=== PATIENT | female | born 1980 | race Caucasian/White ===

== ENCOUNTER → 2018-06-02 10:46 | Outpatient (CLI) | payer BC, SELFPAY ==
[2018-06-05 03:05] LABS: Clam <0.10 kU/L (Class 0); Codfish <0.10 kU/L (Class 0); Corn <0.10 kU/L (Class 0); Egg, White <0.10 kU/L (Class 0); Milk (Cow) <0.10 kU/L (Class 0); Peanut <0.10 kU/L (Class 0); SCALLOP <0.10 kU/L (Class 0); Shrimp <0.10 kU/L (Class 0); Soybean <0.10 kU/L (Class 0); Walnut, (Food) <0.10 kU/L (Class 0); Wheat <0.10 kU/L (Class 0)
[2018-06-05 16:39] LABS: SESAME SEED <0.10 kU/L (Class 0)
== END ==
PROVIDERS: Family Provider Internal Medicine; PCP Internal Medicine; Visit Provider Otolaryngology
DX: T78.40XA Allergy, unspecified, initial encounter (principal)
CPT/HCPCS: 36415; 86003

== ENCOUNTER → 2018-07-14 09:21 | Outpatient (CLI) | payer BC, SELFPAY ==
[2018-07-17 11:17] LABS: Crab <0.10 kU/L (Class 0)
== END ==
PROVIDERS: Family Provider Internal Medicine; PCP Internal Medicine; Visit Provider Otolaryngology
DX: T78.40XA Allergy, unspecified, initial encounter (principal)
CPT/HCPCS: 36415; 86003

== ENCOUNTER → 2018-11-24 13:09 | Outpatient (CLI) | payer BC, SELFPAY ==
[2018-03-11 09:58] VITALS: BMI 21.6
--- NOTE | 2018-11-24 13:13 | US_ITS ---
STUDY: ULTRASOUND BREAST - LEFT REASON FOR EXAM: Female, 38 years old. TECHNIQUE: Axial and longitudinal images of the LEFT breast were performed with a high resolution ultrasound transducer. COMPARISON: None. FINDINGS: Ultrasound of the right axilla, no evidence of abnormality detected benign-appearing lymph nodes with fatty hilum seen. US/Breast Limited Unilateral IMPRESSION: Negative study Electronically Signed: You Brown, at 16:24 EST Tel , Service support ,
--- NOTE | 2018-11-24 13:13 | BI_ITS ---
MAMMOGRAPHY - BILATERAL DIAGNOSTIC REASON FOR EXAM: Female, 38 years old. PERTINENT HISTORY: Non-contributory. TECHNIQUE: Digital examination. Mediolateral oblique (MLO) and craniocaudad (CC) views of both breasts were obtained. CAD: COMPARISON: None. FINDINGS: Breast Composition: Heterogeneous fibroglandular tissue may obscure small lesions. however no evidence of any distinct masses, skin thickening or nipple retraction. Small lymph nodes noted in both axillary areas, but because of increased density in the left axilla patient was called back for second look by ultrasound. BI/DIAG MAMM W/CAD, BILAT IMPRESSION: No evidence of malignancy please refer to the ultrasound examination when it is done. BIRADS 1 Approximately 10% of breast cancers are not detected by mammography. A normal mammogram should not delay biopsy of a clinically suspicious abnormality. Electronically Signed: You Brown, at 16:28 EST Tel , Service support ,
== END ==
PROVIDERS: Family Provider Internal Medicine; PCP Internal Medicine; Referring Provider Internal Medicine; Visit Provider Internal Medicine
DX: R59.1 Generalized enlarged lymph nodes (principal); N63.0 Unspecified lump in unspecified breast
CPT/HCPCS: 76642; 77062; 77066; G0279

== ENCOUNTER → 2018-11-28 14:09 | Outpatient (CLI) | payer BC, SELFPAY ==
--- NOTE | 2018-11-28 14:12 | US_ITS ---
STUDY: ULTRASOUND BREAST - LEFT REASON FOR EXAM: Female, 38 years old. Palpable abnormality in the left axillary region. TECHNIQUE: Axial and longitudinal images of the LEFT breast were performed with a high resolution ultrasound transducer. COMPARISON: Comparison is made with prior ultrasound dated November 24, 2018. FINDINGS: LEFT Breast: There are 2 benign-appearing lymph nodes in the axillary region. The larger measures 1.7 cm 1.4 cm x 0.7 cm. US/Breast Limited Unilateral IMPRESSION: 2 benign appearing left axillary lymph nodes. ASSESSMENT CATEGORY: BIRADS Category 2: Benign. A letter regarding these results will be sent to the patient by the facility within 30 days. Electronically Signed: Radu Cramer MD at 9:25 EST Tel [phone], Service support ,
== END ==
PROVIDERS: Family Provider Internal Medicine; PCP Internal Medicine; Referring Provider Internal Medicine; Visit Provider Internal Medicine
DX: R93.89 Abnormal findings on diagnostic imaging of other specified body structures (principal)
CPT/HCPCS: 76642

== ENCOUNTER → 2020-01-18 16:35 | Outpatient (CLI) | payer BC, SELFPAY ==
[2020-01-18 13:01] VITALS: BMI 21.6
[2020-01-21 15:45] LABS: HPV APTIMA, High Risk Negative (Negative)
== END ==
PROVIDERS: PCP Internal Medicine; Referring Provider Nurse Practitioner Women's Health; Visit Provider Nurse Practitioner Women's Health
DX: Z12.4 Encounter for screening for malignant neoplasm of cervix (principal)
CPT/HCPCS: 87624; 88175; G0145

== ENCOUNTER → 2020-01-26 11:46 | Outpatient (CLI) | payer BC, SELFPAY ==
[2020-01-18 13:01] VITALS: BMI 21.6
--- NOTE | 2020-01-26 11:46 | BI_ITS ---
MAMMOGRAPHY - BILATERAL SCREENING REASON FOR EXAM: Female, 39 years old. Routine annual screening examination. PERTINENT HISTORY: Maternal aunt had breast cancer TECHNIQUE: Digital bilateral breast kandy (3D mammographic acquisition) in the CC and MLO projections. 2-D mediolateral oblique (MLO) and craniocaudad (CC) views of both breasts were obtained. CAD: Full Field Digital Mammography with Computer Added Detection was performed. COMPARISON: Previously obtained on 11/24/2018 FINDINGS: Breast Composition: Dense central breast structures identified. There are no dominant masses or suspicious calcifications. No other significant abnormalities are identified. BI/SCREEN MAMM (CAD) W/KANDY BILAT IMPRESSION: Stable bilateral screening mammogram. Yearly follow-up mammogram recommended. (A) ASSESSMENT CATEGORY: BIRADS Category 1: Negative. A letter regarding these results will be sent to the patient by the facility within 30 days. Approximately 10% of breast cancers are not detected by mammography. A normal mammogram should not delay biopsy of a clinically suspicious abnormality. [id number] Electronically Signed: Juan Francisco Nestor, at 17:39 EST Tel , Service support ,
== END ==
PROVIDERS: PCP Internal Medicine; Referring Provider Nurse Practitioner Women's Health; Visit Provider Nurse Practitioner Women's Health
DX: Z12.31 Encounter for screening mammogram for malignant neoplasm of breast (principal)
CPT/HCPCS: 77063; 77067

== ENCOUNTER → 2021-02-08 12:00 | Outpatient (CLI) | payer BC, SELFPAY ==
[2021-01-24 09:55] VITALS: BMI 21.7
--- NOTE | 2021-02-08 12:11 | BI_ITS ---
MAMMOGRAPHY - BILATERAL SCREENING REASON FOR EXAM: Female, 40 years old. Routine annual screening examination. PERTINENT HISTORY: Aunt with breast cancer. History of prior bilateral breast reduction surgery. TECHNIQUE: Digital bilateral breast kandy (3D mammographic acquisition) in the CC and MLO projections. 2-D mediolateral oblique (MLO) and craniocaudad (CC) views of both breasts were obtained. CAD: Full Field Digital Mammography with Computer Added Detection was performed. COMPARISON: Comparison is made with prior study dated 01/26/2020 and 11/24/2018. FINDINGS: Breast Composition: The breasts are extremely dense, which lowers the sensitivity of mammography. There are no dominant masses or suspicious calcifications. Stable benign-appearing bilateral axillary lymph nodes. No other significant abnormalities are identified. There has been no significant change since the prior study. BI/SCRN MAMM (CAD)W/KANDY BILAT IMPRESSION: Stable bilateral screening mammogram. Yearly follow-up mammogram recommended. (A) ASSESSMENT CATEGORY: BIRADS Category 2: Benign. A letter regarding these results will be sent to the patient by the facility within 30 days. Approximately 10% of breast cancers are not detected by mammography. A normal mammogram should not delay biopsy of a clinically suspicious abnormality. [id number] Electronically Signed: Radu Cramer MD at 11:17 EDT , Service support ,
--- NOTE | 2021-02-08 12:11 | US_ITS ---
STUDY: ULTRASOUND OF THE FEMALE PELVIS - COMPLETE REASON FOR EXAM: Female, 40 years old. Menorrhagia LMP: 02/01/2021 TECHNIQUE: Transvaginal TECHNICAL QUALITY: Adequate. COMPARISON: None. FINDINGS: The uterus is anteverted and is in a midline position. The uterus measures 9.2 cm. Normal uterine cervix. The endometrium measures 3.8 mm in thickness, and is hyperechoic. There is no demonstrated endometrial mass. There is no demonstrated myometrial mass. I.U.D. - The patient does not have an I.U.D. The right ovary is visualized. The right ovary measures 2.7 x 2.9 x 2.1 cm. There is no right ovarian cyst or ovarian mass. There is no visualized right adnexal mass or complex lesion. There is normal arterial and normal venous vascularity. The left ovary is visualized. The left ovary measures 3.7 x 2.9 x 2.7 cm. There is no left ovarian cyst or ovarian mass. There is no visualized left adnexal mass or complex lesion. There is normal arterial and normal venous vascularity. There is no fluid in the cul-de-sac. The bladder is sonographically normal US/Transvaginal Non- IMPRESSION: No suspicious sonographic findings Electronically Signed: Maldonado Yanez MD at 13:13 EST , Service support ,
--- NOTE | 2021-02-08 12:11 | US_ITS ---
STUDY: ULTRASOUND OF THE FEMALE PELVIS - COMPLETE REASON FOR EXAM: Female, 40 years old. Menorrhagia LMP: 02/01/2021 TECHNIQUE: Transvaginal TECHNICAL QUALITY: Adequate. COMPARISON: None. FINDINGS: The uterus is anteverted and is in a midline position. The uterus measures 9.2 cm. Normal uterine cervix. The endometrium measures 3.8 mm in thickness, and is hyperechoic. There is no demonstrated endometrial mass. There is no demonstrated myometrial mass. I.U.D. - The patient does not have an I.U.D. The right ovary is visualized. The right ovary measures 2.7 x 2.9 x 2.1 cm. There is no right ovarian cyst or ovarian mass. There is no visualized right adnexal mass or complex lesion. There is normal arterial and normal venous vascularity. The left ovary is visualized. The left ovary measures 3.7 x 2.9 x 2.7 cm. There is no left ovarian cyst or ovarian mass. There is no visualized left adnexal mass or complex lesion. There is normal arterial and normal venous vascularity. There is no fluid in the cul-de-sac. The bladder is sonographically normal US/Pelvic (Non ) IMPRESSION: No suspicious sonographic findings Electronically Signed: Maldonado Yanez MD at 13:13 EST , Service support ,
== END ==
PROVIDERS: PCP Internal Medicine; Referring Provider Nurse Practitioner Women's Health; Visit Provider Nurse Practitioner Women's Health
DX: Z12.31 Encounter for screening mammogram for malignant neoplasm of breast (principal); N92.0 Excessive and frequent menstruation with regular cycle
CPT/HCPCS: 76830; 76856; 77063; 77067

== ENCOUNTER 2021-03-23 13:59 | Outpatient (RCR) | payer BC, SELFPAY ==
[2021-01-24 09:55] VITALS: BMI 21.7
== END 2021-05-09 23:59 ==
LOC: IMMUN 13:59
PROVIDERS: PCP Internal Medicine; Referring Provider Family Medicine; Visit Provider Family Medicine
DX: Z23 Encounter for immunization (principal)
CPT/HCPCS: 0001A; 0002A; 91300

== ENCOUNTER → 2021-06-28 13:04 | Outpatient (CLI) | payer BC, SELFPAY ==
[2021-01-24 09:55] VITALS: BMI 21.7
== END ==
PROVIDERS: PCP Internal Medicine; Referring Provider Dermatology; Visit Provider Dermatology
DX: L30.9 Dermatitis, unspecified (principal)
CPT/HCPCS: 36415

== ENCOUNTER → 2021-08-10 09:48 | Outpatient (CLI) | payer BC, SELFPAY ==
[2021-08-10 10:16] LABS: Absolute Lymphocyte Count 1.89 X10^3/uL (0.83-4.51); Absolute Neutrophil Count 4.4 X10^3/uL (2.0-7.7); Basophil# 0.05 X10^3/uL; Basophil% 0.7 % (0-1); Eosinophil# 0.06 X10^3/uL; Eosinophils% 0.9 % (0-5); Hematocrit 39.1 % (37-47); Hemoglobin 12.6 g/dL (12.0-15.0); Lymphocyte # 1.89 X10^3/ul (0.83-4.51); Lymphocyte % 27.1 % (19-41); Mean Corp Hgb Conc 32.2 g/dL (32-36); Mean Corpuscular Hgb 30.4 pg (27.0-32.0); Mean Corpuscular Volume 94.2 fL (81-99); Mean Platelet Vol. 9.7 fl (6.2-12.0); Monocyte# 0.55 X10^3/uL; Monocyte% 7.9 % (0-10); NRBC Flagged by Analyzer 0 % (0-5); Neutrophil % 63.1 % (47-70); Platelet Count 315 K/mm3 (150-450); RBC Distribution Width CV 12.3 % (11.6-14.6); RBC Distribution Width SD 42.9 fl (35.1-43.9); Red Blood Count 4.15 M/mm3 (4.2-5.4)
== END ==
PROVIDERS: PCP Internal Medicine; Referring Provider Internal Medicine Rheumatology; Visit Provider Internal Medicine Rheumatology
DX: D72.829 Elevated white blood cell count, unspecified (principal)
CPT/HCPCS: 36415; 85025

== ENCOUNTER 2022-01-30 07:54 | Outpatient (CLI) | payer BC, SELFPAY ==
--- NOTE | 2022-01-30 07:56 | BI_ITS ---
MAMMOGRAPHY - BILATERAL SCREENING REASON FOR EXAM: Female, 41 years old. Routine annual screening examination. PERTINENT HISTORY: Aunt with breast cancer. History of prior bilateral breast reduction surgery. TECHNIQUE: Digital bilateral breast kandy (3D mammographic acquisition) in the CC and MLO projections. 2-D mediolateral oblique (MLO) and craniocaudad (CC) views of both breasts were obtained. CAD: Full Field Digital Mammography with Computer Added Detection was performed. COMPARISON: Comparison is made with prior study 02/08/2021 and 01/26/2020. FINDINGS: Breast Composition: The breasts are extremely dense, which lowers the sensitivity of mammography. There are no dominant masses or suspicious calcifications. Stable small benign-appearing bilateral axillary lymph nodes. No other significant abnormalities are identified. There has been no significant change since the prior study. BI/SCRN MAMM (CAD)W/KANDY BILAT IMPRESSION: Stable bilateral screening mammogram. Yearly follow-up mammogram recommended. (A) ASSESSMENT CATEGORY: BIRADS Category 2: Benign. A letter regarding these results will be sent to the patient by the facility within 30 days. Approximately 10% of breast cancers are not detected by mammography. A normal mammogram should not delay biopsy of a clinically suspicious abnormality. [id number] Electronically Signed: Radu Cramer MD at 9:01 EST ,
== END 2022-01-30 23:59 | disposition home or self-care (01) ==
LOC: OPBI 07:55
PROVIDERS: PCP Internal Medicine; Visit Provider Nurse Practitioner Women's Health
DX: Z12.31 Encounter for screening mammogram for malignant neoplasm of breast (principal)
CPT/HCPCS: 77063; 77067

== ENCOUNTER → 2022-09-14 | Outpatient (CLI) | payer BC, SELFPAY ==
[2022-09-14 10:53] LABS: Absolute Lymphocyte Count 2.01 X10^3/uL (0.83-4.51); Absolute Neutrophil Count 3.5 X10^3/uL (2.0-7.7); Basophil# 0.07 X10^3/uL; Basophil% 1.2 % (0-1); Eosinophil# 0.06 X10^3/uL; Hematocrit 38.9 % (37-47); Hemoglobin 12.9 g/dL (12.0-15.0); Lymphocyte # 2.01 X10^3/ul (0.83-4.51); Lymphocyte % 33.3 % (19-41); Mean Corp Hgb Conc 33.2 g/dL (32-36); Mean Corpuscular Hgb 31.3 pg (27.0-32.0); Mean Corpuscular Volume 94.4 fL (81-99); Mean Platelet Vol. 10.4 fl (6.2-12.0); Monocyte# 0.42 X10^3/uL; NRBC Flagged by Analyzer 0 % (0-5); Neutrophil # 3.46 X10^3/uL (2.7-7.7); Neutrophil % 57.3 % (47-70); Platelet Count 293 K/mm3 (150-450); RBC Distribution Width SD 41.9 fl (35.1-43.9); Red Blood Count 4.12 M/mm3 (4.2-5.4)
[2022-09-14 11:35] LABS: AST(SGOT) 15 U/L (15-37); Alanine Aminotransfer ALT/SGPT 21 U/L (13-56); Albumin, Serum 3.9 g/dL (3.2-5.0); Alkaline Phosphatase 57 U/L (45-117); Bilirubin, Direct 0.08 mg/dL (0.00-0.30); Globulin 3.3 g/dL (2.2-4.2); Protein, Total 7.2 g/dL (6.4-8.2)
== END | disposition home or self-care (01) ==
LOC: LAB 09:07
PROVIDERS: PCP Internal Medicine; Visit Provider Dermatology
DX: L70.0 Acne vulgaris (principal); D89.89 Other specified disorders involving the immune mechanism, not elsewhere classified; L82.1 Other seborrheic keratosis; D18.01 Hemangioma of skin and subcutaneous tissue; Z71.89 Other specified counseling; Z79.899 Other long term (current) drug therapy
CPT/HCPCS: 36415; 80076; 85025

== ENCOUNTER → 2023-03-12 | Outpatient (CLI) | payer BC, SELFPAY ==
--- NOTE | 2023-03-12 07:40 | BI_ITS ---
MAMMOGRAPHY - BILATERAL SCREENING 3-D TOMOSYNTHESIS REASON FOR EXAM: Female, 42 years old. Screening mammogram PERTINENT HISTORY: No significant family history. TECHNIQUE: 2-D mammograms and 3-D Tomosynthesis of the breast (s) were performed. CAD was performed. COMPARISON: None. FINDINGS: The breast composition is extremely dense fibroglandular tissue. Scattered benign calcifications are seen. No dense spiculated masses or suspicious microcalcifications are identified. No architectural distortion is identified. There is no skin thickening or retraction. There has been no significant change since the prior study. BI/SCRN MAMM (CAD)W/KANDY BILAT IMPRESSION: No mammographic signs of malignancy. Routine yearly mammograms recommended. ASSESSMENT CATEGORY: BIRADS Category 2: Benign. A letter regarding these results will be sent to the patient by the facility within 30 days. FOLLOW UP RECOMMENDATION: Yearly follow up mammogram recommended. (A) Approximately 10% of breast cancers are not detected by mammography. A normal mammogram should not delay biopsy of a clinically suspicious abnormality. Electronically Signed: Maldonado Yanez MD at 8:39 EDT ,
== END | disposition home or self-care (01) ==
LOC: OPBI 07:38
PROVIDERS: PCP Internal Medicine; Referring Provider Nurse Practitioner Women's Health; Visit Provider Nurse Practitioner Women's Health
DX: Z12.31 Encounter for screening mammogram for malignant neoplasm of breast (principal)
CPT/HCPCS: 77063; 77067

== ENCOUNTER → 2023-03-14 | Outpatient (CLI) | payer BC, SELFPAY ==
[2023-03-14 10:38] LABS: Absolute Lymphocyte Count 2.23 X10^3/uL (0.83-4.51); Absolute Neutrophil Count 5.9 X10^3/uL (2.0-7.7); Basophil# 0.07 X10^3/uL; Basophil% 0.8 % (0-1); Eosinophils% 1.1 % (0-5); Hematocrit 37.2 % (37-47); Hemoglobin 12.1 g/dL (12.0-15.0); Lymphocyte # 2.23 X10^3/ul (0.83-4.51); Lymphocyte % 24.9 % (19-41); Mean Corp Hgb Conc 32.5 g/dL (32-36); Mean Corpuscular Hgb 30.1 pg (27.0-32.0); Mean Corpuscular Volume 92.5 fL (81-99); Mean Platelet Vol. 9.8 fl (6.2-12.0); Monocyte# 0.61 X10^3/uL; Monocyte% 6.8 % (0-10); NRBC Flagged by Analyzer 0 % (0-5); Neutrophil # 5.93 X10^3/uL (2.7-7.7); Neutrophil % 66.2 % (47-70); Platelet Count 352 K/mm3 (150-450); RBC Distribution Width CV 12.1 % (11.6-14.6); RBC Distribution Width SD 41.1 fl (35.1-43.9); Red Blood Count 4.02 M/mm3 (4.2-5.4)
== END | disposition home or self-care (01) ==
LOC: LAB 09:39
PROVIDERS: PCP Internal Medicine; Referring Provider Nurse Practitioner Women's Health; Visit Provider Nurse Practitioner Women's Health
DX: N92.0 Excessive and frequent menstruation with regular cycle (principal)
CPT/HCPCS: 36415; 85025

== ENCOUNTER → 2023-04-19 | Outpatient (CLI) | payer BC, SELFPAY ==
[2023-04-19 10:34] LABS: Absolute Lymphocyte Count 1.97 X10^3/uL (0.83-4.51); Basophil# 0.04 X10^3/uL; Basophil% 0.6 % (0-1); Eosinophil# 0.08 X10^3/uL; Eosinophils% 1.2 % (0-5); Hematocrit 38.9 % (37-47); Hemoglobin 12.9 g/dL (12.0-15.0); Lymphocyte # 1.97 X10^3/ul (0.83-4.51); Lymphocyte % 30.1 % (19-41); Mean Corp Hgb Conc 33.2 g/dL (32-36); Mean Corpuscular Hgb 31.1 pg (27.0-32.0); Mean Corpuscular Volume 93.7 fL (81-99); Mean Platelet Vol. 10.3 fl (6.2-12.0); Monocyte# 0.46 X10^3/uL; NRBC Flagged by Analyzer 0 % (0-5); Neutrophil # 3.98 X10^3/uL (2.7-7.7); Neutrophil % 60.9 % (47-70); Platelet Count 282 K/mm3 (150-450); RBC Distribution Width CV 12.2 % (11.6-14.6); RBC Distribution Width SD 42.1 fl (35.1-43.9); Red Blood Count 4.15 M/mm3 (4.2-5.4); White Blood Count 6.5 K/mm3 (4.4-11.0)
[2023-04-19 11:05] LABS: AST(SGOT) 19 U/L (15-37); Alanine Aminotransfer ALT/SGPT 24 U/L (13-56)
== END | disposition home or self-care (01) ==
LOC: LAB 08:31
PROVIDERS: PCP Internal Medicine; Referring Provider Dermatology; Visit Provider Dermatology
DX: Z79.899 Other long term (current) drug therapy (principal)
CPT/HCPCS: 36415; 84450; 84460; 85025

== ENCOUNTER → 2023-08-19 | Outpatient (CLI) | payer BC, SELFPAY ==
[2023-08-19 12:35] LABS: Absolute Lymphocyte Count 2.06 X10^3/uL (0.83-4.51); Absolute Neutrophil Count 5.4 X10^3/uL (2.0-7.7); Basophil# 0.06 X10^3/uL; Basophil% 0.7 % (0-1); Eosinophils% 1.2 % (0-5); Hematocrit 37.3 % (37-47); Hemoglobin 11.8 g/dL (12.0-15.0); Lymphocyte # 2.06 X10^3/ul (0.83-4.51); Mean Corp Hgb Conc 31.6 g/dL (32-36); Mean Corpuscular Hgb 30.1 pg (27.0-32.0); Mean Corpuscular Volume 95.2 fL (81-99); Mean Platelet Vol. 9.9 fl (6.2-12.0); Monocyte# 0.65 X10^3/uL; Monocyte% 7.9 % (0-10); NRBC Flagged by Analyzer 0 % (0-5); Neutrophil # 5.35 X10^3/uL (2.7-7.7); Neutrophil % 64.8 % (47-70); Platelet Count 294 K/mm3 (150-450); RBC Distribution Width SD 42.2 fl (35.1-43.9); Red Blood Count 3.92 M/mm3 (4.2-5.4); White Blood Count 8.3 K/mm3 (4.4-11.0)
[2023-08-19 13:11] LABS: AST(SGOT) 18 U/L (15-37); Alanine Aminotransfer ALT/SGPT 22 U/L (13-56); Albumin, Serum 3.7 g/dL (3.2-5.0); Alkaline Phosphatase 67 U/L (45-117); Bilirubin, Direct 0.09 mg/dL (0.00-0.30); Globulin 3.3 g/dL (2.2-4.2)
== END | disposition home or self-care (01) ==
LOC: LAB 11:25
PROVIDERS: PCP Internal Medicine; Referring Provider Dermatology; Visit Provider Dermatology
DX: L70.0 Acne vulgaris (principal); D89.89 Other specified disorders involving the immune mechanism, not elsewhere classified; L82.1 Other seborrheic keratosis; L57.8 Other skin changes due to chronic exposure to nonionizing radiation; Z71.89 Other specified counseling; Z79.899 Other long term (current) drug therapy; D18.01 Hemangioma of skin and subcutaneous tissue
CPT/HCPCS: 36415; 80076; 85025

== ENCOUNTER → 2024-02-03 | Outpatient (CLI) | payer BC, SELFPAY ==
[2024-02-03 09:08] LABS: Absolute Lymphocyte Count 2.04 X10^3/uL (0.83-4.51); Absolute Neutrophil Count 3.5 X10^3/uL (2.0-7.7); Basophil# 0.08 X10^3/uL; Basophil% 1.3 % (0-1); Eosinophil# 0.11 X10^3/uL; Eosinophils% 1.8 % (0-5); Hemoglobin 12.9 g/dL (12.0-15.0); Lymphocyte # 2.04 X10^3/ul (0.83-4.51); Lymphocyte % 33.3 % (19-41); Mean Corp Hgb Conc 32.3 g/dL (32-36); Mean Corpuscular Hgb 29.7 pg (27.0-32.0); Mean Platelet Vol. 10.2 fl (6.2-12.0); Monocyte# 0.42 X10^3/uL; Monocyte% 6.9 % (0-10); NRBC Flagged by Analyzer 0 % (0-5); Neutrophil # 3.46 X10^3/uL (2.7-7.7); Neutrophil % 56.4 % (47-70); Platelet Count 273 K/mm3 (150-450); RBC Distribution Width CV 12.4 % (11.6-14.6); RBC Distribution Width SD 42.1 fl (35.1-43.9); Red Blood Count 4.35 M/mm3 (4.2-5.4); White Blood Count 6.1 K/mm3 (4.4-11.0)
--- OUTSIDE RECORDS SUMMARY | 2024-02-03 09:15 | XMS RPT_ITS | CCD ---
Author Name Unknown Address [address] [place] [address] Organization [facility] Care Team Providers Care Hay Farmer Name Role Phone Zainab Richey Unavailable Jenni Nayak Unavailable Gin Irwin Unavailable Unavailable Unavailable Unavailable Sharmin Mcfarland Unavailable Unavailable Colette Narayan Unavailable Unavailable Blanquita Russell Unavailable Unavailable Unavailable Jonny Zainab Unavailable Unavailable Jonny, Zainab Unavailable Unavailable Jonny, Zainab Unavailable Unavailable Gravius, Ruthy Unavailable Unavailable Markell Barnhart Unavailable Unavailable Jonny Zainab Unavailable Jenni Nayak Unavailable Gravius, Ruthy Unavailable Unavailable Unavailable Unavailable Kristen, Tigist Unavailable Unavailable Gin Garcia Unavailable Unavailable Elissa Pineda Unavailable Gin Irwin Unavailable Unavailable Kristen, Tigist Unavailable Unavailable Elissa Pineda Unavailable Gin Irwin Unavailable Unavailable Nadja Rowell Unavailable Unavailable Jonny DO Zainab Unavailable Elissa Pineda Unavailable Dr. Jenni Nayak MD Unavailable Nadja Rowell LPN Unavailable Unavailable Unavailable Unavailable Martha Santos LPN Unavailable Unavailable Ivory Francois CNP Unavailable Zainab Richey DO Unavailable Ivory Francois Unavailable Zainab Richey DO Primary Care Provider ZAINAB RICHEY Primary Care Unavailab le Allergies Allergy Classification Reported Allergen(s) Allergy Type Date of Onset Reaction(s) Facility Penicillins (antibiotic) (1 source) Penicillins; Translations: [Penicillins] Drug Allergy [facility] Work Phone: (20 sources) Penicillins; Translations: [Penicillins] allergy to substance 01-10-20 Anaphylaxis [facility] Work Phone: (3 sources) Acetaminophen / HYDROcodone; Translations: [HYDROCODONE-ACET AMINOPHEN] Drug Allergy 07-17-20 GI Upset [facility] Work Phone: (3 sources) Codeine; Translations: [CODEINE] Drug Allergy 07-17-20 GI Upset [facility] Work Phone: (2 sources) SEASONAL [Other] Propensity to adverse reactions 07-17-20 [facility] Work Phone: (1 source) OTHER; Translations: [OTHER] Propensity to adverse reactions (disorder) 07-17-20 [facility] Repository Medications Completed/Discontinued Medications Medication Drug Class(es) Dates Sig (Normalized) Sig (Original) amLODIPine 2.5 mg oral tablet (20 sources) Dihydropyridine Calcium Channel Yuan Start: 02-15-2016 End: 07-03-2018 take 1 tablet by mouth once daily Norvasc 2.5 MG Oral Tablet 1 (one) Tablet qd for 0 days Quantity: 30 {Tablet} Refills: 0 Ordered: 03-Jul-2018 Gin Irwin RN Start : 15-Feb-2016 End : 03-Jul-2018 Inactive azithromycin 250 mg oral tablet (20 sources) Macrolide Antimicrobial Start: 03-27-2007 End: 12-31-2008 AZITHROMYCIN, 250MG (Oral Tablet) TAD Tablet for 0 days Quantity: 1 {Tablet} Refills: 0 Ordered: 27-Mar-2007 Gin Irwin RN Start : 27-Mar-2007 End : 31-Dec-2008 Inactive Comments: 2 TABS DAY 1 AND 1 TAB QD FOR 4 DAYSDISPENSE ONE Z-PACK Problems Active Problems Problem Classification Problem Date Documented Da te Episodic/Chronic Allergic reactions (20 sources) Contact dermatitis due to poison karolina; Translations: [Contact dermatitis due to poison karolina (Renamed from Poison karolina)] 10-07-2018 Episodic Asthma (2 sources) Mild intermittent asthma; Translations: [Mild intermittent asthma, uncomplicated] Onset: 06-05-2019 06-05-2019 Chronic Coagulation and hemorrhagic disorders (2 sources) von Willebrand disorder; Translations: [Von Willebrand's disease] 04-14-2012 Chronic Deficiency and other anemia (12 sources) Anemia; Translations: [Anemia] 12-16-2020 Episodic Diseases of white blood cells (2 sources) Leukocytosis; Translations: [Elevated WBC count] 08-02-2021 Chronic Past or Other Problems Problem Classification Problem Date Documented Date Episodic/Chronic Calculus of urinary tract (2 sources) Kidney stone; Translations: [Calculus of kidney] Onset: 06-05-2019 06-05-2019 Episodic Nausea and vomiting (2 sources) Postoperative nausea and vomiting; Translations: [Nausea with vomiting, unspecified] Onset: 06-05-2019 06-05-2019 Episodic Nonmalignant breast conditions (11 sources) Breast signs and symptoms; Translations: [Other signs and symptoms in breast] Resolved: 05-17-2009 02-15-2016 Other complications of ; puerperium affecting management of mother (11 sources) Obstetric non-purulent mastitis - delivered; Translations: [Nonpurulent mastitis associated with childbirth, delivered, with or without mention of antepartum condition (Renamed from Mastitis, obstetric, delivered)] Resolved: 05-17-2009 02-15-2016 Episodic Other complications of (9 sources) Nonpurulent mastitis associated with , unspecified trimester; Translations: [Obstetric non-purulent mastitis - delivered] Resolved: 05-17-2009 02-15-2016 Episodic Other connective tissue disease (11 sources) Pain of toes of bilateral feet; Translations: [Pain in toes of both feet] 05-11-2019 Results Test Name Value Interpretation Reference Range Facil ity Vital Signs Date Time Vital Sign Value Performing Clinician Facility 08-02-2021 08:19-0400 Body height 168.91 cm Martha Santos LPN [facility] Work Phone: 08-02-2021 08:19-0400 Body mass index (BMI) [Ratio] 21.66 kg/m2 Martha Tom CAN STRIPER [facility] Work Phone: 08-02-2021 08:19-0400 Body surface area Derived from formula 1.71 m2 Martha Santos NICHOLAS [facility] Work Phone: 08-02-2021 08:19-0400 Body temperature 97.1 [degF] Martha Santos NICHOLAS [facility] Work Phone: Encounters Encounter Date Encounter Type Care Provider Facility Start: 01-29-2024 Telephone encounter Shan PATTEN Work Phone: [facility] Procedures Date Procedure Procedure Detail Performing Clinician Start: 10-04-2023 INFLUENZA VACCINE, AGE 6 MO - 64 YR, QUADRIVALENT (AFLURIA, FLULAVAL, FLUZONE) Talha Freeman MD Work Phone: Start: 03-06-2022 End: 03-06-2022 Dye Tub Tender Office Visit Report Comments: See Note; NOTES: [facility] [address] [place] [address]. 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) Allergies Penicillins Allergy (Verified 03/06/22 14:36) Other Medications spironolactone 50 mg tablet 50 mg PO DAILY 01/18/20 [History Confirmed 03/06/22] hydroxychloroquine 200 mg tablet 200 mg PO DAILY 11/17/21 [History Confirmed 03/06/22] Is last menstrual period known: Yes Last Menstral Period: 02/19/22 [facility] Medical History History of kidney stones Surgical History Dysplastic nevus S/P bilateral breast reduction S/P tonsillectomy Family History Grandmother Non-Hodgkins lymphoma Grandfather Bowel cancer Lung cancer Social History Smoking Status: Never smoker alcohol intake: never substance use type: does not use caffeine: Yes what type of physical activity do you participate in: walking and aerobics frequency: 3-4 times per week seatbelt use: always do you feel safe at home: Yes additional social history: - Meño- community relations advisor 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 Date Name GA/Weeks Outcome Route Bth Weight Gen Labor Lgth Anesthesia Del Locatn Provider FOB Unknown Jesus Manuel-08/31/2005 Unknown Micheal-03/19/2007 HPI Encounter for routine gynecological examination: Details: LYNDA DIAZ is a 41 year old who presents for annual exam. Denies concerns. Menses are not as heavy as last year. Last PAP: 2019 History of abnormal PAP: no Last mammogram: 02/08/22 History of abnormal mammogram: no Details: LYNDA DIAZ is a 41 year old who presents for annual exam. Last PAP: [] History of abnormal PAP: [] Last mammogram: [] History of abnormal mammogram: [] Colon cancer screening: [] Other preventative health care screenings: [] Female Reproductive History Last Menstral Period: 02/19/22 Cycle Length: 21-35 Control Method: spouse vasectomy Questions: metorrhagia: No, sexually active: Yes, dyspareunia: No and PCB: No ROS Const Constitutional: Denies fatigue, weight gain or weight loss Cardio Card: Denies chest pain Resp Resp: Denies cough or dyspnea on exertion GI GI: Denies abdominal pain, bloating, change in stool character, constipation or vomiting : Reports as per HPI; Denies difficulty voiding, pelvic pain, urinary frequency, urinary incontinence, urinary urgency, vaginal discharge or vaginal pruritus Exam Const General: cooperative, healthy appearing, no acute distress and well developed Orientation: alert, oriented to person and oriented to place [facility] Head: normal to inspection Neck Neck: normal visual inspection Thyroid: thyroid normal Lymphatic: no lymphadenopathy noted Chest Breast inspection: normal inspection of the breasts and normal inspection of the axillae Breast palpation: normal palpation of the breasts, normal palpation of the axillae and no axillary lymphadenopathy Resp Effort Inspection: normal respiratory effort GI Palpation: soft, no masses and nontender Rectal Exam: deferred External Female Exam: normal external appearance and normal appearance of the urethra Urethra: normal appearance of the urethra and normal palpation Speculum Exam - Vagina: normal appearance of the vagina and normal vaginal discharge Speculum Exam - Cervix: normal appearance of the cervix Bimanual Exam- Vagina Uterus: normal bimanual exam, uterine size normal, uterine shape normal and non-tender Bimanual Exam- Adnexa, other: normal adnexae, no masses, normal and non-tender Pelvic Support: normal Neuro General: patient alert and patient oriented x3 Psych Affect: normal affect Coding Level of Care Code Off vis,est,prev 40-64yrs Diagnoses Encounter for routine gynecological examination Z01.419 Gynecological examination findings: abnormal findings ABSENT Assessment and Plan Assessment and Plan (1) Encounter for routine gynecological examination: Qualifiers: Gynecological examination findings: abnormal findings ABSENT Qualified Code(s): Z01.419 - Encounter for gynecological examination (general) (routine) without abnormal findings Plan - Beth Steele DELPHI PROGRAMMER, DELPHI PROGRAMMER-C: Completed breast and pelvic exam Reviewed diet and exercise Pap 2020 Mammogram today pending breast self exam encouraged monthly Contraception spouse vasectomy Colonoscopy age 50 RTO 1 year, prn with problems Beth Steele ARCADE GAME TECHNICIAN Plan Details Other Orders: Orders: SCRN MAMM (CAD)W/KANDY CARLYAT 01/30/22 03/06/22 [id number] <Electronically signed by Beth Steele NP DELPHI PROGRAMMER-C> Date Beth Steele NP DELPHI PROGRAMMER-C Cosigner Signature: Date (if applicable) CC: Zainab Richey DO Work Phone: Start: 01-30-2022 End: 01-30-2022 SCRN MAMM (CAD)W/KANDY BILAT Comments: See Note; NOTES: [facility] Imaging Services [address] [place] [address] SCRN MAMM (CAD)W/KANDY BILAT MR#: [id number] Acct: [id number] Name: LYNDA DIAZ Rep #: [id number] : 1980 F 41 From: Radu brooks MD PCP: Dr. Zainab Richey, DO Status: [facility] Study: SCRN MAMM (CAD)W/KANDY BILAT Date of Exam: 12/23 Exam# [id number] Ordering Dr: Beth Steele DELPHI PROGRAMMER DELPHI PROGRAMMER -C MAMMOGRAPHY - BILATERAL SCREENING REASON FOR EXAM: Female, 41 years old. Routine annual screening examination. PERTINENT HISTORY: Aunt with breast cancer. History of prior bilateral breast reduction surgery. TECHNIQUE: Digital bilateral breast kandy (3D mammographic acquisition) in the CC and MLO projections. 2-D mediolateral oblique (MLO) and craniocaudad (CC) views of both breasts were obtained. CAD: Full Field Digital Mammography with Computer Added Detection was performed. COMPARISON: Comparison is made with prior study 02/08/2021 and 01/26/2020. FINDINGS: Breast Composition: The breasts are extremely dense, which lowers the sensitivity of mammography. There are no dominant masses or suspicious calcifications. Stable small benign-appearing bilateral axillary lymph nodes. No other significant abnormalities are identified. There has been no significant change since the prior study. BI/SCRN MAMM (CAD)W/KANDY BILAT IMPRESSION: Stable bilateral screening mammogram. Yearly follow-up mammogram recommended. (A) ASSESSMENT CATEGORY: BIRADS Category 2: Benign. A letter regarding these results will be sent to the patient by the facility within 30 days. Approximately 10% of breast cancers are not detected by mammography. A normal mammogram should not delay biopsy of a clinically suspicious abnormality. [id number] Electronically Signed: Radu Cramer MD at 9:01 EST Reading Location ID and State: [address] [place] [address] , Service support , CC: ARLINE Steele; Dr. Zainab Richey DO Furnace Process Supervisor: Signed Zainab Richey DO Work Phone: Start: 11-17-2021 End: 11-17-2021 Urgent Care Visit Report Comments: See Note; NOTES: [facility] [address] [place] [address] [address] [place] [address] OFFICE VISIT Date of Service: 11/17/21 MR#: [id number] Acct: [id number] Name: RONALDLYNDA M Rep #: [id number] : 1980 Provider: SANDOR Benavidez Age/Sex: 41/F Location: [facility] Status: Signed Intake Vital Signs 11/17/21 09:13 Height 5 ft 6 in Weight: 131 lb BMI 21.1 BP 120/80 Blood Pressure Location Lt brachial Position Sitting Respiration 15 Pulse 92 Pulse Source Monitor Temp 98.0 F Temp Source Temporal Pulse Oximetry (%) 99 Oxygen Delivery Method room air Intake Visit Reasons: SORE THROAT/negative covid test Allergies Penicillins Allergy (Verified 01/24/21 09:54) Other Medications spironolactone 50 mg tablet 50 mg PO DAILY 01/18/20 [History Confirmed 11/17/21] azithromycin 250 mg tablet See Rx Instructions PO .COMPLEX #6 tab 11/17/21 [Rx Confirmed 11/17/21] hydroxychloroquine 200 mg tablet 200 mg PO DAILY 11/17/21 [History Confirmed 11/17/21] PFS Medical History (Updated 11/17/21 @ 09:17 by Tang PATTEN PA) History of kidney stones Surgical History Dysplastic nevus S/P bilateral breast reduction S/P tonsillectomy Family History Grandmother Non-Hodgkins lymphoma Grandfather Bowel cancer Lung cancer Social History (Updated 01/24/21 @ 11:25 by Beth Steele NP, DELPHI PROGRAMMER-C) Smoking Status: Never smoker alcohol intake: never substance use type: does not use caffeine: Yes what type of physical activity do you participate in: walking and aerobics frequency: 3-4 times per week seatbelt use: always do you feel safe at home: Yes additional social history: - Meño- community relations advisor 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 Patient states that she has had a sore throat for the past several days with it being worse at night and then improving throughout the day. She states that the sore throat causes tightness in the back of her throat at night in particular. She denies hemoptysis, shortness of breath or difficulty breathing. No other associated symptoms or alleviating/aggravating factors. ROS Const Constitutional: Positive for other (6 system ROS completed with pertinent findings in the HPI otherwise normal.) Exam Const General: cooperative and healthy appearing HENAK Head: normal to inspection Ears: hearing grossly normal bilaterally, TM's normal bilaterally and EAC's normal Nose: external nose normal and nasal discharge clear Mouth: oral mucosae normal Throat: abnormal tonsil bilaterally Resp Effort Inspection: normal respiratory effort Auscultation: Bilateral: Clear to Auscultation Cardio Palpation: normal PMI Rate: regular rate Rhythm: regular rhythm Neuro General: patient alert and CN's II-XI intact bilaterally Psych Appearance: grossly normal Mental Status: mental status grossly normal Coding Level of Care Code Off vis,new,level 3 Diagnoses Acute pharyngitis J02.9 Assessment and Plan Assessment and Plan (1) Acute pharyngitis: Status: Acute Plan - Tang PATTEN PA: Azithromycin as prescribed today. Encouraged to get plenty of rest, drink lots of clear liquids, and use Tylenol or Ibuprofen (unless contraindicated) for fever and comfort. Patient also educated on other symptomatic management techniques. To be seen in 7-10 days if no improvement; sooner if worsening of symptoms. Patient advised of potential red flags and when appropriate to report to the ED. Patient verbalized understanding and agreement with all the above. Plan Details Other Medications: New: azithromycin take 500 mg today (day 1), then 250 mg for 4 days (days 2-5) PO 6 tabs 0RF 11/17/21 0949 <Electronically signed by Tang PATTEN> Date Tang PATTEN Cosigner Signature: Date (if applicable) CC: Zainab Richey DO Work Phone: Start: 02-08-2021 End: 02-08-2021 Pelvic (Non ) Comments: See Note; NOTES: [facility] Imaging Services [address] [place] [address] Pelvic (Non ) MR#: [id number] Acct: [id number] Name: LYNDA DIAZ Rep #: [id number] : 1980 F 40 From: Luca Yanez MD PCP: Dr. Zainab Richey, DO Status: REG CLI Study: Pelvic (Non ) Date of Exam: 02/08/21 Exam# [id number] Ordering Dr: Beth Steele DELPHI PROGRAMMER DELPHI PROGRAMMER -C STUDY: ULTRASOUND OF THE FEMALE PELVIS - COMPLETE REASON FOR EXAM: Female, 40 years old. Menorrhagia LMP: 02/01/2021 TECHNIQUE: Transvaginal TECHNICAL QUALITY: Adequate. COMPARISON: None. FINDINGS: The uterus is anteverted and is in a midline position. The uterus measures 9.2 cm. Normal uterine cervix. The endometrium measures 3.8 mm in thickness, and is hyperechoic. There is no demonstrated endometrial mass. There is no demonstrated myometrial mass. I.U.D. - The patient does not have an I.U.D. The right ovary is visualized. The right ovary measures 2.7 x 2.9 x 2.1 cm. There is no right ovarian cyst or ovarian mass. There is no visualized right adnexal mass or complex lesion. There is normal arterial and normal venous vascularity. The left ovary is visualized. The left ovary measures 3.7 x 2.9 x 2.7 cm. There is no left ovarian cyst or ovarian mass. There is no visualized left adnexal mass or complex lesion. There is normal arterial and normal venous vascularity. There is no fluid in the cul-de-sac. The bladder is sonographically normal US/Pelvic (Non ) IMPRESSION: No suspicious sonographic findings Electronically Signed: Maldonado Yanez MD at 13:13 EST , Service support , CC: ARLINE Steele; Dr. Zainab Richey DO Furnace Process Supervisor: Signed Zainab Richey DO Work Phone: Start: 02-08-2021 End: 02-13-2021 SCRN MAMM (CAD)W/KANDY BILAT Comments: See Note; NOTES: [facility] Imaging Services [address] [place] [address] SCRN MAMM (CAD)W/KANDY BILAT MR#: [id number] Acct: [id number] Name: LYNDA DIAZ Rep #: [id number] : 1980 F 40 From: Radu brooks MD PCP: Dr. Zainab Richey DO Status: REG CLI Study: SCRN MAMM (CAD)W/KANDY BILAT Date of Exam: 01/30 Exam# [id number] Ordering Dr: Beth Steele NP DELPHI PROGRAMMER -Loli MAMMOGRAPHY - BILATERAL SCREENING REASON FOR EXAM: Female, 40 years old. Routine annual screening examination. PERTINENT HISTORY: Aunt with breast cancer. History of prior bilateral breast reduction surgery. TECHNIQUE: Digital bilateral breast kandy (3D mammographic acquisition) in the CC and MLO projections. 2-D mediolateral oblique (MLO) and craniocaudad (CC) views of both breasts were obtained. CAD: Full Field Digital Mammography with Computer Added Detection was performed. COMPARISON: Comparison is made with prior study dated 01/26/2020 and 11/24/2018. FINDINGS: Breast Composition: The breasts are extremely dense, which lowers the sensitivity of mammography. There are no dominant masses or suspicious calcifications. Stable benign-appearing bilateral axillary lymph nodes. No other significant abnormalities are identified. There has been no significant change since the prior study. BI/SCRN MAMM (CAD)W/KANDY BILAT IMPRESSION: Stable bilateral screening mammogram. Yearly follow-up mammogram recommended. (A) ASSESSMENT CATEGORY: BIRADS Category 2: Benign. A letter regarding these results will be sent to the patient by the facility within 30 days. Approximately 10% of breast cancers are not detected by mammography. A normal mammogram should not delay biopsy of a clinically suspicious abnormality. [id number] Electronically Signed: Radu Cramer MD at 11:17 EDT , Service support , CC: ARLINE Steele; Dr. Zainab Richey DO Furnace Process Supervisor: Signed Zainab Richey DO Work Phone: Start: 02-08-2021 End: 02-08-2021 Transvaginal Non- Comments: See Note; NOTES: [facility] Imaging Services [address] [place] [address] Transvaginal Non- MR#: [id number] Acct: [id number] Name: LYNDA DIAZ Rep #: [id number] : 1980 F 40 From: Luca Yanez MD PCP: Dr. Zainab Richey, DO Status: REG CLI Study: Transvaginal Non- Date of Exam: Exam# [id number] Ordering Dr: Beth Steele NP DELPHI PROGRAMMER -C STUDY: ULTRASOUND OF THE FEMALE PELVIS - COMPLETE REASON FOR EXAM: Female, 40 years old. Menorrhagia LMP: 02/01/2021 TECHNIQUE: Transvaginal TECHNICAL QUALITY: Adequate. COMPARISON: None. FINDINGS: The uterus is anteverted and is in a midline position. The uterus measures 9.2 cm. Normal uterine cervix. The endometrium measures 3.8 mm in thickness, and is hyperechoic. There is no demonstrated endometrial mass. There is no demonstrated myometrial mass. I.U.D. - The patient does not have an I.U.D. The right ovary is visualized. The right ovary measures 2.7 x 2.9 x 2.1 cm. There is no right ovarian cyst or ovarian mass. There is no visualized right adnexal mass or complex lesion. There is normal arterial and normal venous vascularity. The left ovary is visualized. The left ovary measures 3.7 x 2.9 x 2.7 cm. There is no left ovarian cyst or ovarian mass. There is no visualized left adnexal mass or complex lesion. There is normal arterial and normal venous vascularity. There is no fluid in the cul-de-sac. The bladder is sonographically normal US/Transvaginal Non- IMPRESSION: No suspicious sonographic findings Electronically Signed: Maldonado Yanez MD at 13:13 EST , Service support , CC: ARLINE Steele; Dr. Zainab Richey DO Furnace Process Supervisor: Signed Zainab Richey DO Work Phone: Start: 01-24-2021 End: 01-24-2021 Dye Tub Tender Office Visit Report Comments: See Note; NOTES: [facility] 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) Lab Instructor Required: No Accompanied by: self Allergies Penicillins Allergy (Verified 01/24/21 09:54) Other Medications spironolactone 50 mg tablet 50 mg PO DAILY 01/18/20 [History Confirmed 01/24/21] Is last menstrual period known: Yes Last Menstral Period: 01/03/21 Post menopausal: No Patient : No : No [facility] Medical History History of kidney stones (Acute) Surgical History Dysplastic nevus (Resolved) S/P bilateral breast reduction (Resolved) S/P tonsillectomy (Resolved) Family History Grandmother Non-Hodgkins lymphoma Grandfather Bowel cancer Lung cancer Social History (Updated 01/24/21 @ 11:25 by Beth Steele NP, ARLINE) Smoking Status: Never smoker alcohol intake: never substance use type: does not use caffeine: Yes what type of physical activity do you participate in: walking, aerobics frequency: 3-4 times per week seatbelt use: always do you feel safe at home: Yes additional social history: - Meño- community relations advisor 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 Date Name GA/Weeks Outcome Route Bth Weight Gen Labor Lgth Anesthesia Del Locatn Provider FOB Unknown Jesus Manuel-08/31/2005 Unknown Micheal-03/19/2007 HPI Encounter for routine gynecological examination: Details: LYNDA DIAZ is a 40 year old who presents for annual exam. Menses heavier, regular, last 5 days. Changing super tampon every 1-2 hours first 1-2 days. Declines oral contraceptives and had self expulsion of mirena IUD. Last PAP: 2019 History of abnormal PAP: no Last mammogram: 01/2020 History of abnormal mammogram: no Other preventative health care screenings: Jonny Female Reproductive History Last Menstral Period: 01/03/21 Control Method: spouse vasectomy Questions: Metorrhagia: Yes, Sexually active: Yes, Dyspareunia: No, PCB: No Menopausal Symptoms: Yes hot flashes, No night sweats, No weight change, No mood changes, No difficulty concentrating, No sleep problems, No change in libido Menopausal Treatment: No HRT, No Vaginal Estrogen, No Osphena, No OTC treatments, No prescription non-hormonal treatment ROS Const Constitutional: Denies night sweats Cardio Card: Denies chest pain Resp Resp: Denies cough or shortness of breath with activity GI GI: Denies abdominal pain, bloating, change in stools, constipation or vomiting : Reports as per HPI and hot flashes Psych Psych: Denies change in sex drive or difficulty concentrating Exam Const General: cooperative, healthy appearing, no acute distress, well developed Orientation: alert, oriented to person, oriented to place HENAK Head: normal to inspection Neck Neck: normal visual inspection Thyroid: thyroid normal Lymphatic: no lymphadenopathy noted Chest Breast inspection: normal inspection of the breasts, normal inspection of the axillae Breast palpation: normal palpation of the breasts, normal palpation of the axillae, no axillary lymphadenopathy Resp Effort Inspection: normal respiratory effort GI Palpation: soft, no masses, nontender Rectal Exam: deferred External Female Exam: normal external appearance, normal appearance of the urethra Urethra: normal appearance of the urethra, normal palpation Speculum Exam - Vagina: normal appearance of the vagina, normal vaginal discharge Speculum Exam - Cervix: normal appearance of the cervix Bimanual Exam- Vagina Uterus: normal bimanual exam, uterine size normal, uterine shape normal, uterus non-tender Bimanual Exam- Adnexa, other: normal adnexae, no adnexal masses, pelvic support normal, adnexae non- tender Pelvic Support: normal Neuro General: alert, oriented x3 Psych Affect: normal affect Assessment Plan Problems 1. Encounter for gynecological examination with abnormal finding Z01.411 2. Menorrhagia with regular cycle N92.0 ultrasound Plan Completed breast and pelvic exam Reviewed diet and exercise Pap 2019 Mammogram ordered breast self exam encouraged monthly Contraception vasectomy ultrasound RTO 1 year, prn with problems Beth Steele ARCADE GAME TECHNICIAN Orders Orders: SCRN MAMM (CAD)W/KANDY BILAT Today Pelvic (Non ) Today N92.0 Transvaginal Non- Today N92.0 Coding Level of Care Code Off vis,est,prev 40-64yrs Diagnoses Encounter for gynecological examination with abnormal finding Z01.411 ?Gynecological examination findings: abnormal findings PRESENT Menorrhagia with regular cycle N92.0 01/24/21 1125 <Electronically signed by Beth Steele NP, NP-C> Date Beth Steele NP, NP-C Cosigner Signature: Date (if applicable) CC: Zainab Richey Start: 01-26-2020 End: 01-26-2020 SCREEN MAMM (CAD) W/KANDY BILAT Comments: See Note; NOTES: [facility] Imaging Services [address] [place] [address] SCREEN MAMM (CAD) W/KANDY BILAT MR#: [id number] Acct: [id number] Name: LYNDA DIAZ Rep #: [id number] : 1980 F 39 From: Juan Francisco Baez DO PCP: Zainab Richey DO Status: REG CLI Study: SCREEN MAMM (CAD) W/KANDY BILAT Date of Exam: 01/26/20 Exam# [id number] Ordering Dr: Beth Steele DELPHI PROGRAMMER-C MAMMOGRAPHY - BILATERAL SCREENING REASON FOR EXAM: Female, 39 years old. Routine annual screening examination. PERTINENT HISTORY: Maternal aunt had breast cancer TECHNIQUE: Digital bilateral breast kandy (3D mammographic acquisition) in the CC and MLO projections. 2-D mediolateral oblique (MLO) and craniocaudad (CC) views of both breasts were obtained. CAD: Full Field Digital Mammography with Computer Added Detection was performed. COMPARISON: Previously obtained on 11/24/2018 FINDINGS: Breast Composition: Dense central breast structures identified. There are no dominant masses or suspicious calcifications. No other significant abnormalities are identified. BI/SCREEN MAMM (CAD) W/KANDY BILAT IMPRESSION: Stable bilateral screening mammogram. Yearly follow-up mammogram recommended. (A) ASSESSMENT CATEGORY: BIRADS Category 1: Negative. A letter regarding these results will be sent to the patient by the facility within 30 days. Approximately 10% of breast cancers are not detected by mammography. A normal mammogram should not delay biopsy of a clinically suspicious abnormality. [id number] Electronically Signed: Juan Francisco Baez, at 17:39 EST Tel , Service support , CC: NETO Steele; Zainab Richey DO Furnace Process Supervisor: Signed Zainab Richey Work Phone: Start: 01-18-2020 End: 01-18-2020 Dye Tub Tender Office Visit Report Comments: See Note; NOTES: [facility] [address] [place] [address] OFFICE VISIT Date of Service: 01/18/20 MR#: [id number] Acct: [id number] Name: LYNDA DIAZ Rep #: [id number] : 1980 Provider: NETO Steele Age/Sex: 39/F Location: [facility] [place] Status: Signed Intake Vital Signs01/18/20 Height 5 ft 6.75 in 01/18/20 Weight: 137 lb 01/18/20 BMI 21.6 01/18/20 BP 110/80 Intake Visit Reasons: ANNUAL EXAM Chief Complaint: est annual Lab Instructor Required: No Is patient in pain?: No Allergies Penicillins Allergy (Verified 01/18/20 13:01) Other Medications spironolactone 50 mg tablet 50 mg PO DAILY 01/18/20 [History Confirmed 01/18/20] Is last menstrual period known: No Post menopausal: No Patient : No : No [facility] Medical History History of kidney stones (Acute) Surgical History Dysplastic nevus (Resolved) S/P bilateral breast reduction (Resolved) S/P tonsillectomy (Resolved) Family History Grandmother Non-Hodgkins lymphoma Grandfather Bowel cancer Lung cancer Social History (Updated 01/18/20 @ 13:45 by ARLINE Travis) Smoking Status: Never smoker alcohol intake: current alcohol intake frequency: holidays/special occasions only substance use type: does not use caffeine: Yes what type of physical activity do you participate in: walking, aerobics frequency: 3-4 times per week seatbelt use: always do you feel safe at home: Yes additional social history: - Meño- community relations advisor 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 DatName GA/WeeksOutcome Route [facility] Zhanna Yusuf LgAnesthesDel LocaProviderFOB e ht en [place] HPI ANNUAL EXAM: Details: LYNDA DIAZ is a 39 year old who presents for annual exam. Has been evaluated in 11/2018 per PCP for lump under left axilla that per US is 2 lymph nodes. States they come and go prior to menses with mild discomfort. Stable. Last PAP: due History of abnormal PAP: no Last mammogram: 11/2018 History of abnormal mammogram: no Other preventative health care screenings: Dr. Richey Female Reproductive History Cycle Length: 21-35 Control Method: vasectomy Questions: Metorrhagia: No, Sexually active: Yes, Dyspareunia: No, PCB: No ROS Const Constitutional: Denies fatigue, weight gain or weight loss Cardio Card: Denies chest pain Resp Resp: Denies cough or shortness of breath with activity GI GI: Denies abdominal pain, bloating, change in stools, constipation or vomiting : Reports as per HPI; denies difficulty urinating, pelvic pain, urinary frequency, urinary incontinence, urinary urgency, vaginal discharge or vaginal itching Exam Const General: cooperative, healthy appearing, no acute distress, well developed Orientation: alert, oriented to person, oriented to place HENAK Head: normal to inspection Neck Neck: normal visual inspection Thyroid: thyroid normal Lymphatic: no lymphadenopathy noted Chest Breast inspection: normal inspection of the breasts, normal inspection of the axillae Breast palpation: normal palpation of the breasts, normal palpation of the axillae (prominent muscle with lymph node-states area of evaluation. Stable), no axillary lymphadenopathy Resp Effort AND Inspection: normal respiratory effort GI Palpation: soft, no masses, nontender Rectal Exam: deferred External Female Exam: normal external appearance, normal appearance of the urethra Urethra: normal appearance of the urethra, normal palpation Speculum Exam - Vagina: normal appearance of the vagina, normal vaginal discharge Speculum Exam - Cervix: normal appearance of the cervix Bimanual Exam- Vagina AND Uterus: normal bimanual exam, uterine size normal, uterine shape normal, uterus non-tender Bimanual Exam- Adnexa, other: normal adnexae, no adnexal masses, pelvic support normal, adnexae non-tender Pelvic Support: normal Neuro General: alert, oriented x3 Psych Affect: normal affect Assessment AND Plan Problems 1. Encounter for gynecological examination with abnormal finding Z01.411 2. Lymphadenopathy, axillary R59.0 Plan Completed breast and pelvic exam Reviewed diet and exercise Pap thin prep pap with HPV Mammogram ordered Reassured normal finding when notes increased size of lymph node just prior to menses and resolves with menses breast self exam encouraged monthly Contraception vasectomy RTO 1 year, prn with problems Beth Steele ARCADE GAME TECHNICIAN Orders Orders: Coding Level of Care Code Off vis,est,prev 18-39yrs Diagnoses Encounter for gynecological examination with abnormal finding Z01.411 Gynecological examination findings: abnormal findings PRESENT Lymphadenopathy, axillary R59.0 01/18/20 1346 <Electronically signed by Beth SANC> Date Beth Steele DELPHI PROGRAMMER-C Cosigner Signature: Date (if applicable) CC: Zainab Richey Start: 11-28-2018 End: 12-03-2018 Breast Limited Unilateral Comments: See Note; NOTES: [facility] Imaging Services [address] [place] [address] Breast Limited Unilateral MR#: [id number] Acct: [id number] Name: LYNDA DIAZ Rep #: [id number] : 1980 F 38 From: Radu Cramer MD PCP: Zainab Richey DO Status: REG CLI Study: Breast Limited Unilateral Date of Exam: 11/28/18 Exam# [id number] Ordering Dr: Zainab Richey DO STUDY: ULTRASOUND BREAST - LEFT REASON FOR EXAM: Female, 38 years old. Palpable abnormality in the left axillary region. TECHNIQUE: Axial and longitudinal images of the LEFT breast were performed with a high resolution ultrasound transducer. COMPARISON: Comparison is made with prior ultrasound dated November 24, 2018. FINDINGS: LEFT Breast: There are 2 benign-appearing lymph nodes in the axillary region. The larger measures 1.7 cm 1.4 cm x 0.7 cm. US/Breast Limited Unilateral IMPRESSION: 2 benign appearing left axillary lymph nodes. ASSESSMENT CATEGORY: BIRADS Category 2: Benign. A letter regarding these results will be sent to the patient by the facility within 30 days. Electronically Signed: Radu Cramer MD at 9:25 EST Tel [phone], Service support , CC: Zainab Richey DO Furnace Process Supervisor: Signed Zainab Richey Work Phone: Start: 11-24-2018 End: 11-28-2018 Breast Limited Unilateral Comments: See Note; NOTES: [facility] Imaging Services [address] [place] [address] Breast Limited Unilateral MR#: [id number] Acct: [id number] Name: LYNDA DIAZ Rep #: [id number] : 1980 F 38 From: You Brown MD PCP: Zainab Richey DO Status: REG CLI Study: Breast Limited Unilateral Date of Exam: 11/24/18 Exam# [id number] Ordering Dr: Zainab Richey DO STUDY: ULTRASOUND BREAST - LEFT REASON FOR EXAM: Female, 38 years old. TECHNIQUE: Axial and longitudinal images of the LEFT breast were performed with a high resolution ultrasound transducer. COMPARISON: None. FINDINGS: Ultrasound of the right axilla, no evidence of abnormality detected benign-appearing lymph nodes with fatty hilum seen. US/Breast Limited Unilateral IMPRESSION: Negative study Electronically Signed: You Brown, at 16:24 EST Tel , Service support , CC: Zainab Richey DO Furnace Process Supervisor: Signed Zianab Richey Work Phone: Start: 11-24-2018 End: 11-28-2018 DIAG MAMM W/CAD, BILAT Comments: See Note; NOTES: [facility] Imaging Services [address] [place] [address] DIAG MAMM W/CAD, BILAT MR#: [id number] Acct: [id number] Name: LYNDA DIAZ Rep #: [id number] : 1980 F 38 From: You Brown MD PCP: Zainab Richey DO Status: REG CLI Study: DIAG MAMM W/CAD, BILAT Date of Exam: 11/24/18 Exam# [id number] Ordering Dr: Zainab Richey DO MAMMOGRAPHY - BILATERAL DIAGNOSTIC REASON FOR EXAM: Female, 38 years old. PERTINENT HISTORY: Non-contributory. TECHNIQUE: Digital examination. Mediolateral oblique (MLO) and craniocaudad (CC) views of both breasts were obtained. CAD: COMPARISON: None. FINDINGS: Breast Composition: Heterogeneous fibroglandular tissue may obscure small lesions. however no evidence of any distinct masses, skin thickening or nipple retraction. Small lymph nodes noted in both axillary areas, but because of increased density in the left axilla patient was called back for second look by ultrasound. BI/DIAG MAMM W/CAD, BILAT IMPRESSION: No evidence of malignancy please refer to the ultrasound examination when it is done. BIRADS 1 Approximately 10% of breast cancers are not detected by mammography. A normal mammogram should not delay biopsy of a clinically suspicious abnormality. Electronically Signed: You Brown at 16:28 EST Tel , Service support , CC: Zainab Richey DO Furnace Process Supervisor: Signed Zainab Richey Work Phone: Start: 03-11-2018 End: 03-11-2018 Dye Tub Tender Office Visit Report Comments: See Note; NOTES: [facility] [address] [place] [address]. 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) Lab Instructor Required: No Is patient in pain?: No Allergies Penicillins Allergy (Verified 03/11/18 09:51) Other Medications biotin 1 mg capsule 1 mg PO QDAY 03/11/18 [History Confirmed 03/11/18] Is last menstrual period known: Yes Last Menstral Period: 02/24/18 Post menopausal: No Patient : No : No PFSH Surgical History Dysplastic nevus (Resolved) S/P bilateral breast reduction (Resolved) S/P tonsillectomy (Resolved) Family History Grandmother Non-Hodgkins lymphoma Grandfather Bowel cancer Lung cancer Social History Smoking Status: Never smoker alcohol intake: current alcohol intake frequency: holidays/special occasions only substance use type: does not use caffeine: Yes what type of physical activity do you participate in: walking, aerobics frequency: 3-4 times per week seatbelt use: always do you feel safe at home: Yes additional social history: - Meño- community relations advisor 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 Last PAP: 16 normal History of abnormal PAP: no Last mammogram: History of abnormal mammogram: Colon cancer screening: Other preventative health care screenings: 09/16 Female Reproductive History Last Menstral Period: 02/24/18 Cycle Length: 21-35 Questions: Metorrhagia: No, Sexually active: Yes ROS Const Constitutional: Reports as per HPI; denies poor appetite, fatigue, increased appetite, weight gain or weight loss Cardio Card: Denies chest pain Resp Resp: Denies dyspnea or cough GI GI: Reports as per HPI and abdominal pain; denies bloating, constipation, vomiting or nausea : Reports as per HPI and other; denies blood in urine, vaginal odor, vaginal itching, vaginal dryness, vaginal discharge, urinary urgency, urinary incontinence, urinary frequency, pelvic pain, painful urination, difficulty urinating, prolapse symptoms or nipple discharge Skin Skin/Breast: Denies breast pain, breast skin changes, nipple discharge, breast lump or changing lesions Exam Const General: cooperative, healthy appearing, comfortable, no acute distress, well developed, well groomed HENAK Head: normal to inspection, normocephalic Ears: hearing grossly normal bilaterally, external ears normal Nose: external nose normal Face and sinus: normal facial exam Neck Neck: normal visual inspection, full ROM, no lymphadenopathy Thyroid: thyroid normal Chest Chest palpation AND inspection: normal inspection of the chest Breast inspection: normal inspection of the breasts, normal inspection of the axillae Breast palpation: normal palpation of the breasts, normal palpation of the axillae, no axillary lymphadenopathy Resp Effort AND Inspection: normal respiratory effort GI Inspection: normal to inspection, non-distended Palpation: no guarding, soft, no hepatosplenomegaly General: bladder normal to palpation External Female Exam: normal external appearance, normal appearance of the urethra, no lesions Urethra: normal appearance of the urethra, normal palpation Speculum Exam - Vagina: normal appearance of the vagina, normal vaginal discharge Speculum Exam - Cervix: normal appearance of the cervix, no cervical discharge, no lesions, nontender Bimanual Exam- Vagina AND Uterus: No cervical tenderness, normal bimanual exam, uterine size normal, bladder normal to palpation, uterine mobility normal, uterine consistency normal, uterus non-tender, no cervical motion tenderness Bimanual Exam- Adnexa, other: normal adnexae, no adnexal masses, adnexae non-tender Skin General: no rashes or lesions noted Neuro General: alert, moves all extremities, no focal motor deficits Extrem General: no pedal edema, normal to inspection Psych Appearance: grossly normal Mental Status: mental status grossly normal Affect: normal affect Speech and Movement: speech and movement normal Attitude: cooperative Assessment AND Plan Problems 1. Routine adult health maintenance Z00.00 Plan Cervical cancer screenin normal Breast cancer screening: mamm starting age 40 STD prevention and contraceptive options including their risks, benefits, and alternatives were reviewed with the patient and she chooses: vasectomy Encouraged maintenance of a healthy weight and active lifestyle and handout given. Calcium/vitamin D recommendations provided. Annual exam handout including recommendations for good health guidelines and basic screening information given. Problem list up to date, see problem list details for any additional plan information. follow up in one year for annual health maintenance exam or sooner if needed. Medications Discontinued: Coding Level of Care Code Off vis,new,prev 18-39yrs Diagnoses Routine adult health maintenance Z00.00 03/11/18 1031 <Electronically signed by Elissa Pineda MD> Date Elissa Pineda MD Cosigner Signature: Date (if applicable) CC: Zainab Richey Start: 04-19-2017 End: 04-22-2017 Echocardiogram Complete Comments: See Note; NOTES: [facility] Cardiovascular Services [address] [place] [address] Echo Complete 04/19/17 0904 MR#: [id number] Acct: [id number] Name: LYNDA DIAZ Rep #: [id number] : 1980 36 From: Simone Simon MD Attending Dr: Isaias Baez Status: REG CLI Ordering Dr: Isaias Baez Date: 04/19/17 Location: [facility] Sex: F C Admitted: Reason For Study: SOB Procedure This was a 2D Doppler, Color Flow transthoracic echocardiogram. Exam performed in department. Left Ventricle Normal size and thickness. The estimated ejection fraction is 65 %. Normal diastology for age. No regional wall motion abnormalities noted. Right Ventricle Normal size and thickness. Normal systolic function. Atria Normal left atrium. Normal right atrium. Normal atrial septum. Mitral Valve The mitral valve is structurally normal. No prolapse or stenosis seen. Trivial mitral valve insufficiency. Tricuspid Valve Normal tricuspid valve. Trivial tricuspid valve insufficiency. Right ventricular systolic pressure estimated to be 23 mmHg. Aortic Valve Trisinus/trileaflet aortic valve. Pulmonic Valve Normal pulmonic valve. Great Vessels Normal aortic root. Normal arch. Normal inferior vena cava. Inferior vena cava collapse with sniff. Pericardium/Pleural No pericardial effusion. MMode/2D Measurements & Calculations LVIDd: 4.5 cm IVSd: 0.83 cm Ao root diam: 2.7 cm LVIDs: 2.9 cm LVPWd: 0.88 cm LA dimension: 3.2 cm RVDd: 2.9 cm FS: 36.1 % LAV(MOD-bp): 38.5 ml LA A4 area: 14.9 cm2 RA A4 area: 12.6 cm2 LAV(MOD-bp) Indexed: 23.1 ml/m2 LAV(MOD-sp2): 37.7 ml LAV(MOD-sp4): 37.4 ml Doppler Measurements & Calculations MV E max chino: 98.1 cm/sec Lat Peak E' Chino: 15.7 cm/sec Med Peak E' Chino: 13.3 cm/sec MV A max chino: 58.2 cm/sec E/E' lat: 6.3 E/E' med: 7.4 MV E/A: 1.7 Ao V2 max: 134.8 cm/sec LV V1 max: 101.2 cm/sec PA V2 max: 89.9 cm/sec Ao max P.3 mmHg LV V1 max P.1 mmHg TR max chino: 209.8 cm/sec TR max P.7 mmHg Interpretation Summary The estimated ejection fraction is 65 %. Normal diastology for age. Trivial mitral valve insufficiency. Trivial tricuspid valve insufficiency. Right ventricular systolic pressure estimated to be 23 mmHg. There is no comparison study available. Ordering Physician: Isaias Baez Referring Physician: Zainab Richey Performed By: Kailey Munson, AV, RVT 04/19/17 1138 Date Simone Simon MD CC: Isaias Baez; Zainab Richey DO Date Dictated: 04/19/17 0904 Date Transcribed: 04/19/17 1138 Furnace Process Supervisor: Signed Zainab Jonny Work Phone: Start: 04-19-2017 End: 04-20-2017 Chest PA and Lateral Comments: See Note; NOTES: [facility] Imaging Services [address] [place] [address] Verdana 4d Chest PA and Lateral MR#: [id number] Acct: [id number] Name: LYNDA DIAZ Rep #: [id number] : 1980 F 36 From: Frandy Mercedes MD PCP: Zainab Richey DO Status: REG CLI Study: Chest PA and Lateral Date of Exam: 04/19/17 Exam# [id number] Ordering Dr: Isaias Baez STUDY: X-RAY CHEST REASON FOR EXAM: Female, 36 years old. Shortness of breath. TECHNIQUE: Frontal and lateral views of the chest. COMPARISON: 04/12/2016. FINDINGS: The lungs are clear and expanded. There is no demonstrated pleural abnormality. Normal size heart. Normal mediastinum and manjinder. Normal visualized pulmonary arteries. Normal visualized aortic arch and descending thoracic aorta. Normal visualized thoracic spine. Normal visualized ribs, clavicles, and shoulders. There is no demonstrated abnormality of the visualized soft tissue structures of the upper abdomen. RAD/Chest PA and Lateral IMPRESSION: Normal x-ray examination of the chest. Electronically Signed: Frandy Mercedes MD at 6:20 EDT , Service support , CC: Isaias Baez; Zainab Richey DO Furnace Process Supervisor: Signed Zainab Richey Work Phone: Start: 04-17-2016 End: 04-17-2016 Emergency Department Summary Comments: See Note; NOTES: [facility] Medical Records Department [address] [place] [address] Emergency Department Summary MR#: [id number] Acct: [id number] Name: LYNDA DIAZ Rep #: [id number] : 1980 35 From: Luis Alfredo Garland MD PCP: Zainab Richey DO Status: DEP ER DATE OF SERVICE: 04/10/2016 Addendum The patient was originally seen on April 10, 2016, for vomiting and diarrhea. The patient had a workup pursued that revealed she had C. diff positive stool. She was placed on Flagyl and she was doing well and was discharged home. She also had stool studies sent for enteric pathogens. This returned today on the as positive for Salmonella. I spoke with Dr. Albrecht from infectious disease. Her recommendation since the patient is not immunocompromised to hold off on treatment for the Salmonella and just treat the C. diff. Dr. Albrecht would like to see her this coming week on Saturday or Saturday. I did speak with the patient today on the to notify her of her stool study results and she will call Dr. Albrecht for followup appointment. MD Loli Sky C: Niesha Richey DO T: NTS JOB: [id number] 04/17/16 2336 <Electronically signed by Luis Alfredo Garland MD> Date Luis Alfredo Garland MD Cosigner Signature (If Indicated): Date CC: Niesha Albrecht MD; Zainab Richey DO Date Dictated: 04/11/161714 Date Transcribed: 04/11/161714 Furnace Process Supervisor: Signed Zainab Richey Start: 04-12-2016 End: 04-12-2016 Acute Abdomen Inc Chest Comments: See Note; NOTES: [facility] Imaging Services [address] [place] [address] Verdana 4d Acute Abdomen Inc Chest MR#: [id number] Acct: [id number] Name: LYNDA DIAZ Rep #: [id number] : 1980 F 35 From: Radu Cramer MD PCP: Zainab Richey DO Status: REG ER Study: Acute Abdomen Inc Chest Date of Exam: 04/12/16 Exam# [id number] Ordering Dr: Luis Alfredo Garland MD STUDY: X-RAY - ACUTE ABDOMINAL SERIES REASON FOR EXAM: Female, 35 years old. Nausea, vomiting and diarrhea. TECHNIQUE: Single view of the chest. Supine, and erect view(s) of the abdomen were obtained. COMPARISON: None. FINDINGS: The lungs are clear and expanded. Normal size heart. Normal mediastinum and manjinder. Normal visualized pulmonary arteries. Normal visualized aortic arch and descending thoracic aorta. There is a moderate amount of colonic fecal material. The soft tissue structures of the abdomen and pelvis are unremarkable. Normal visualized osseous structures. IMPRESSION: Moderate amount of fecal material is seen in the colon. Electronically Signed: Radu Cramer MD at 9:18 EDT Tel [phone], Service support [phone], RAD/Acute Abdomen Inc Chest IMPRESSION: Moderate amount of fecal material is seen in the colon. Electronically Signed: Radu Cramer MD at 9:18 EDT Tel [phone], Service support [phone], CC: Zainab Richey DO; Luis Alfredo Garland MD Furnace Process Supervisor: Signed Zainab Richey Start: 04-11-2016 End: 04-11-2016 Discharge Instruction Comments: See Note; NOTES: [facility] Medical Records Department [address] [place] [address] Discharge Instruction 04/10/16 2347 MR#: [id number] Acct: [id number] Name: LYNDA DIAZ Rep #: [id number] : 1980 35 From: Anthony Vora MD PCP: Zainab Richey DO Status: [facility] ER ED Disposition - Plan for ED Patient: Chief Complaint: Nausea/Vomiting/Diarrhea Instructions: Clostridium difficile Infection Prescriptions: Metronidazole [Flagyl] 500 mg PO Q6H #40 tablet Referrals: Zainab Richey DO [Primary Care Provider] - 1-2 Days if not improving Signs,MD Niesha [STAFF PHYSICIAN] - 10-14 Days if not better What to do if you have Problems For any increased pain, shortness of breath, bleeding, nausea or vomiting, chest pain, or any unexpected problems, contact your doctor. Call [facility] ([phone]) or report to the closest Emergency Room. Call 911 if necessary. 04/11/16 0204 <Electronically signed by Anthony Vora MD> Date Anthony Vora MD Cosigner Signature (If Indicated): Date CC: Zainab Whitmore Start: 04-11-2016 End: 04-11-2016 Emergency Department Summary Comments: See Note; NOTES: [facility] Medical Records Department [address] [place] [address] Emergency Department Summary MR#: [id number] Acct: [id number] Name: LYNDA DIAZ Rep #: [id number] : 1980 35 From: Anthony Vora MD PCP: Zainab Richey DO Status: DEP ER DATE OF SERVICE: 04/10/2016 METHOD OF ARRIVAL: Private car. CHIEF COMPLAINT: Vomiting and diarrhea. HISTORY OF PRESENT ILLNESS: A 35-year-old female, patient of Dr. Richey, reports she has vomiting and diarrhea that began yesterday. She has vomited multiple times. No blood in her emesis. She has had multiple episodes of diarrhea with no blood in her stool. She reports she has cramping diffuse abdominal pain that is 8/10 at worst, 3/10 currently. It is worsened by vomiting, relieved by nothing. The patient has not been around anyone sick, has not been camping out of the country. No possible bad food exposure. She does drink well water, but others at home do as well and they are not ill. She was on doxycycline 2 weeks ago for a sinus infection. PHYSICAL EXAMINATION: GENERAL: Reveals alert woman, in no acute distress. VITAL SIGNS: Temperature 98.9, blood pressure 96/63, heart rate 121, respiratory rate 18, pulse oximetry 96% on room air. She is not hypoxic. ABDOMEN: Significant physical exam findings include the abdominal exam, which shows her to have mild diffuse tenderness. Abdomen is soft. No guarding, rebound or peritoneal signs. The remainder of the physical exam is unremarkable. Please see T-sheet for details. TEST RESULTS: The patient had a chem-7 that is remarkable for sodium of 135, potassium of 3.4, glucose of 128. CBC is remarkable for a white count of 14.4, H and H of 10.8 and 31.7, segmented neutrophils of 19, lymphocytes of 5. test is negative. C. diff is positive. EMERGENCY DEPARTMENT COURSE: The patient was treated with Toradol and Zofran IV. She was given 3 liters of normal saline. She was given Flagyl p.o. TREATMENT PLAN: The patient feels improved. She would like to go home. She will be discharged with instructions to follow up with Dr. Richey in 3-5 days if not improving. Return to the Emergency Department for any worsening symptoms. I also discussed with her following up with Dr. Albrecht in 10-14 days if she is not improving at that point that she may benefit from seeing infectious disease. DISPOSITION: Home, stable condition. IMPRESSION: Clostridium difficile colitis. MD Loli Hurtado C: Niesha Richey DO T: AKASH JOB: [id number] 04/11/16 0204 <Electronically signed by Anthony Vora MD> Date Anthony Vora MD Cosigner Signature (If Indicated): Date CC: Niesha Albrecht MD; Zainab Richey DO Date Dictated: 04/11/1625 Date Transcribed: 04/11/1625 Furnace Process Supervisor: Signed Zainab Jonny Breast Reduction - Both [place] [facility] [place] Plan of Treatment Date Care Activity Detail Author Start: 12-02-2023 Depression Assessment Depression Assessment [facility] Start: 08-02-2023 Covid-19 Vaccine () Covid-19 Vaccine () [facility] Start: 12-02-2022 Depression Assessment Depression Assessment [facility] Start: 08-03-2021 HPV Testing HPV Testing [facility] Start: 08-03-2021 Pap Testing Pap Testing [facility] Start: 08-03-2021 Screening for malignant neoplasm of cervix [facility] Start: 08-02-2021 Provider Instructions for Treatment Follow up if no improvement or if symptoms worsen [facility] Work Phone: Start: 12-16-2020 Procedure Education Eprescribed prescriptions (G8553) [facility]; [facility] Work Phone: Start: 12-16-2020 Provider Instructions for Treatment Reviewed Plant Breeder Scientist Letter [facility]; [facility] Work Phone: Start: 12-16-2020 Protein electrophoretic fractj&quantj serum SPEP (99019) [facility]; [facility] Work Phone: Start: 12-16-2020 Protein total xcpt refractometry urine UPEP (92724) [facility]; [facility] Work Phone: Start: 12-16-2020 Antihuman globulin direct each antiserum BRAULIO TEST, DIRECT (29917) [facility]; [facility] Work Phone: Start: 12-16-2020 Cobalamin (Vitamin B12) [Mass/Vol] VITAMIN B-12 (CYANOCOBALAMIN) (39396) [facility]; [facility] Work Phone: Start: 12-16-2020 Blood count reticulocyte automated RETICULOCYTE COUNT MANUL (10147) [facility]; [facility] Work Phone: Start: 12-16-2020 Lactate dehydrogenase ldh LDH (LD) (LACTATE DEHYDROGENASE) (71914) [facility]; [facility] Work Phone: Start: 12-16-2020 Assay of iron IRON (08685) [facility] Work Phone: Start: 12-16-2020 Iron [Mass/Vol] IRON (37258) [facility]; [facility] Work Phone: Start: 12-16-2020 Iron binding capacity IRON BINDING CAPACITY (TIBC) (62633) [facility]; [facility] Work Phone: Start: 12-16-2020 Ferritin [Mass/Vol] FERRITIN (96171) [facility]; [facility] Work Phone: Start: 12-16-2020 Blood count complete auto&auto difrntl wbc CBC, PLATELETS & AUT DIFF (74302) [facility]; [facility] Work Phone: Start: 2020 Mammography Mammogram Screening [facility] Start: 2020 Screening for malignant neoplasm of breast Mammogram Screening [facility] Start: 10-02-2019 TSH Qn TSH (THYROID STIMULATING HORMONE) (40853) [facility] Work Phone: Start: 10-02-2019 Gonadotropin follicle stimulating hormone FSH AND LH (13008) [facility] Work Phone: Start: 05-11-2019 Patient Education Sinusitis *: sinus infection [facility] Work Phone: Start: 05-11-2019 Procedure Education Eprescribed prescriptions (G8553) [facility] Work Phone: Start: 05-11-2019 Provider Instructions for Treatment Follow up if no improvement or if symptoms worsen [facility] Work Phone: Start: 11-12-2018 Procedure Education Eprescribed prescriptions (G8553) [facility] Work Phone: Start: 11-12-2018 Provider Instructions for Treatment Reviewed Lab [facility] Work Phone: Start: 10-07-2018 Procedure Education Eprescribed prescriptions (G8553) [facility] Work Phone: Start: 05-17-2010 Provider Instructions for Treatment *Antibiotic Usage Education - Female [facility] Work Phone: Start: 10-14-2007 Urnls dip stick/tablet rgnt non-auto w/o micrscp Urinalysis, Office (14887) [facility] Work Phone: Start: 10-14-2007 Antibody sapna-davis eb virus early antigen ea EB ANTIBODY EARLY ANTIGN (62843) [facility] Work Phone: Start: 10-14-2007 Gonadotropin chorionic qualitative TEST - SERUM QUANTITATIVE (HCG) (98762) [facility] Work Phone: Start: 10-14-2007 Heterophile antibodies screen [facility] Work Phone: Start: 10-14-2007 Assay of thyroid stimulating hormone tsh TSH (24562) [facility]; [facility] Work Phone: Start: 10-14-2007 Thyrotropin Qn TSH (03565) [facility] Work Phone: Start: 10-14-2007 Blood count complete auto&auto difrntl wbc CBC, Platelets & Auto Diff (77542) [facility] Work Phone: Start: 10-14-2007 Comprehensive metabolic panel Metabolic Panel, Comprehensive (75887) [facility] Work Phone: Start: 10-14-2007 Hepatic function panel HEPATIC FUNCTION PANEL (75964) [facility] Work Phone: Start: 10-14-2007 Provider Instructions for Treatment [facility] Work Phone: Start: 1999 Urine microalbumin profile DTaP,Tdap,Td Vaccine (1 - Tdap) [facility] Start: 1998 Annual PCP Team Chronic Disease Visit Annual PCP Team Chronic Disease Visit [facility] Start: 1998 Hepatitis C Screening Hepatitis C Screening [facility] Start: 1998 Hepatitis C screening Hepatitis C Screening [facility] Start: 1998 HIV Screening HIV Screening [facility] Start: 1998 HIV screening HIV Screening [facility] Start: 1998 Spirometry Spirometry [facility] Start: 1986 Pneumococcal vaccination Pneumococcal Vaccine (1 - PCV) [facility] Start: 1980 Hepatitis B Vaccine (1 of 3 - 3-dose series) Hepatitis B Vaccine (1 of 3 - 3-dose series) [facility] Work [facility]: [facility] Work [facility]: [facility] Work Phone: [facility] Work [facility]: [facility] Work Phone: [facility] Work Phone: [facility] Work Phone: Immunizations Immunization Date Immunization Notes Care Provider Kt hand 10-04-2023 influenza, injectabl e, quadrivalent, contains preservative Immunization [place] Work Phone: [facility] Work Phone: 09-06-2021 influenza, injectabl e, quadrivalent, contains preservative Immunization [place] Work Phone: [facility] Work Phone: 09-23-2020 influenza, injectabl e, quadrivalent, contains preservative Immunization [place] Work Phone: [facility] Work Phone: 12-25-2018 influenza, injectabl e, quadrivalent, contains preservative Immunization [place] Work Phone: [facility] Work Phone: 09-24-2016 influenza, injectabl e, quadrivalent, preservative free Immunization [place] Work Phone: [facility] Work Phone: 09-23-2015 influenza, injectabl e, quadrivalent, contains preservative Immunization [place] Work Phone: [facility] Work Phone: 09-23-2014 influenza, live, intranasal, quadrivalent Immunization [place] Work Phone: [facility] Work Phone: 12-16-2013 influenza virus vaccine, unspecified formulation Immunization [place] Work Phone: [facility] 09-03-2012 influenza virus vaccine, live, attenuated, for intranasal use Immunization [place] Work Phone: [facility] Work Phone: 10-13-2011 influenza virus vaccine, live, attenuated, for intranasal use Immunization [place] Work Phone: [facility] 09-19-2010 influenza virus vaccine, live, attenuated, for intranasal use Immunization [place] Work Phone: [facility] 09-16-2009 influenza virus vaccine, live, attenuated, for intranasal use Immunization [place] Work Phone: [facility] Work Phone: 09-27-2008 influenza virus vaccine, live, attenuated, for intranasal use Immunization [place] Work Phone: [facility] 10-01-2007 influenza virus vaccine, unspecified formulation Immunization [place] Work Phone: [facility] 10-14-2006 influenza virus vaccine, unspecified formulation Immunization [place] Work Phone: [facility] Payers Date Payer Category Payer Unknown 2010 Unknown [id number] 2006 Unknown [id number] 1980 Unknown [id number] Unknown [id number] Social History Date Type Detail Facility Alcohol Use: Never smoker [facility] Work Phone: Living Situation: Lives with spouse. [facility] Work Phone: Start: 06-18-2019 End: 10-04-2023 No Drug Use [facility] Work Phone: Number of Child (age 0-17) Dependents: 2. [facility] Work Phone: Alcohol Use: Alcohol Use: [facility] Work Phone: Living Situation: Living Situation: [facility]; [facility] Work Phone: Number of Child (age 0-17) Dependents: Number of Child (age 0-17) Dependents: [facility] Work Phone: Start: 04-14-2012 Tobacco smoking status NHIS Never smoked tobacco [facility] Work Phone: Start: 04-14-2012 Tobacco use and exposure Smokeless tobacco non-user [facility] Work Phone: Start: 06-18-2019 End: 01-28-2024 Alcohol intake Current drinker of alcohol (finding) [facility] Start: 06-18-2019 End: 10-04-2023 Tobacco use panel [facility] National Score (1-100), lower number is lower risk 48 [facility] Start: 08-03-2016 Alcohol Comment Rarely Gianfrancovela [facility] Start: 1980 Sex Assigned At Female C [facility] Start: 09-04-2021 Gender identity Identifies as female gender (finding) [facility] Medical Equipment Procedure Code Equipment Code Equipment Origin al Text Equipment Identifier Dates Stent Inlay Opti ma 7fr Taper [place] Green Polymer Phreecoat 24cm [facility] - [id number] Start: 06-18-2019 Note 01-29-2024 Telephone Encounter - Desi Arceo - 01/29/2024 12:02 PM ESTTelephone Encounter - Shan Carbajal PA - 01/29/2024 10:32 AM EST Note Date & Type Note Facility 01-29-2024 Miscellaneous Notes Formattin g of this note might be different from the original. Patient given results and verbalized understanding of instructions given. Desi Arceo Please let patient know urine culture did not reveal any bacterial growth. Please follow-up with PCP if symptoms persist therefore, she does not have UTI. documented in this encounter [facility] History of Past illness Narrative 08-29-2006 Note Date & Type Note Facility documented as of this encounter (statuses as of 10/05/2023) [facility] History of Past illness Narrative 08-29-2006 Note Date & Type Note Facility documented as of this encounter (statuses as of 01/29/2024) [facility] Instructions Note Date & Type Note Facility [facility]; [facility] Work Phone: Instructions Note Date & Type Note Facility [facility] Work Phone: Instructions Note Date & Type Note Facility [facility]; [facility] Work Phone: Family History Unknown Family Member Name Dates Details Diabetes Mellitus Type II Comments:Father. Status:Active Marvin Carcamo Comments:Sister. Status:Active Unknown Family Member Name Dates Details Diabetes Mellitus Type II Comments:Father. Status:Active Marvin Carcamo Comments:Sister. Status:Active Unknown Family Member Name Dates Details Diabetes Mellitus Type II Comments:Father. Status:Active Marvin Carcamo Comments:Sister. Status:Active Unknown Family Member Name Dates Details Diabetes Mellitus Type II Comments:Father. Status:Active Marvin Carcamo Comments:Sister. Status:Active Unknown Family Member Name Dates Details Diabetes Mellitus Type II Comments:Father. Status:Active Marvin Carcamo Comments:Sister. Status:Active Unknown Family Member Name Dates Details Diabetes Mellitus Type II Comments:Father. Status:Active Marvin Carcamo Comments:Sister. Status:Active Unknown Family Member Name Dates Details Diabetes Mellitus Type II Comments:Father. Status:Active Marvin Carcamo Comments:Sister. Status:Active Unknown Family Member Name Dates Details Diabetes Mellitus Type II Comments:Father. Status:Active Marvin Carcamo Comments:Sister. Status:Active Unknown Family Member Name Dates Details Diabetes Mellitus Type II Comments:Father. Status:Active Marvin Carcamo Comments:Sister. Status:Active Unknown Family Member Name Dates Details Diabetes Mellitus Type II Comments:Father. Status:Active Marvin Carcamo Comments:Sister. Status:Active Unknown Family Member Name Dates Details Diabetes Mellitus Type II Comments:Father. Status:Active Marvin Aguileratay Comments:Sister. Status:Active Unknown Family Member Name Dates Details Diabetes Mellitus Type II Comments:Father. Status:Active Marvin Aguileratay Comments:Sister. Status:Active Unknown Family Member Name Dates Details Diabetes Mellitus Type II Comments:Father. Status:Active Marvin Carcamo Comments:Sister. Status:Active Unknown Family Member Name Dates Details Diabetes Mellitus Type II Comments:Father. Status:Active Marvin Aguileratay Comments:Sister. Status:Active Unknown Family Member Name Dates Details Diabetes Mellitus Type II Comments:Father. Status:Active Marvin Blackwellnico Comments:Sister. Status:Active Unknown Family Member Name Dates Details Diabetes Mellitus Type II Comments:Father. Status:Active Marvin Aguileratay Comments:Sister. Status:Active Instructions Name Dates Details Non-smoker : How to access h ealth information online Indication:Non-smoker Non-smoker : How to access h ealth information online - Detail Indication:Non-smoker Non-smoker : Patient Instruc tions Indication:Non-smoker Cystitis, acute : Water in d iet, brief version Indication:Cystitis, acute Name Dates Details Non-smoker : How to access h ealth information online Indication:Non-smoker Non-smoker : How to access h ealth information online - Detail Indication:Non-smoker Non-smoker : Patient Instruc tions Indication:Non-smoker Cystitis, acute : Water in d iet, brief version Indication:Cystitis, acute Name Dates Details BMI 21.0-21.9, adult : How t o access health information online Indication:BMI 21.0-21.9, adult BMI 21.0-21.9, adult : How t o access health information online - Detail Indication:BMI 21.0-21.9, adult BMI 21.0-21.9, adult : Patie nt Instructions Indication:BMI 21.0-21.9, adult Non-smoker : How to access h ealth information online Indication:Non-smoker Non-smoker : How to access h ealth information online - Detail Indication:Non-smoker Non-smoker : Patient Instruc tions Indication:Non-smoker Cystitis, acute : Water in d iet, brief version Indication:Cystitis, acute Name Dates Details BMI 21.0-21.9, adult : How t o access health information online Indication:BMI 21.0-21.9, adult BMI 21.0-21.9, adult : How t o access health information online - Detail Indication:BMI 21.0-21.9, adult BMI 21.0-21.9, adult : Patie nt Instructions Indication:BMI 21.0-21.9, adult Non-smoker : How to access h ealth information online Indication:Non-smoker Non-smoker : How to access h ealth information online - Detail Indication:Non-smoker Non-smoker : Patient Instruc tions Indication:Non-smoker Cystitis, acute : Water in d iet, brief version Indication:Cystitis, acute Name Dates Details BMI 21.0-21.9, adult : How t o access health information online Indication:BMI 21.0-21.9, adult BMI 21.0-21.9, adult : How t o access health information online - Detail Indication:BMI 21.0-21.9, adult BMI 21.0-21.9, adult : Patie nt Instructions Indication:BMI 21.0-21.9, adult Non-smoker : How to access h ealth information online Indication:Non-smoker Non-smoker : How to access h ealth information online - Detail Indication:Non-smoker Non-smoker : Patient Instruc tions Indication:Non-smoker Cystitis, acute : Water in d iet, brief version Indication:Cystitis, acute Name Dates Details How to access health informa tion online Indication:BMI 20.0-20.9, adult Start:11-May-2019 Instruction Type:Patient Education How to access health informa tion online - Detail Indication:BMI 20.0-20.9, adult Start:11-May-2019 Instruction Type:Patient Education Patient Instructions Indication:Sinusitis, bacterial Start:11-May-2019 Instruction Type:Provider Instructions for Treatment How to access health informa tion online Indication:BMI 21.0-21.9, adult Start:12-Nov-2018 Instruction Type:Patient Education How to access health informa tion online - Detail Indication:BMI 21.0-21.9, adult Start:12-Nov-2018 Instruction Type:Patient Education Patient Instructions Indication:BMI 21.0-21.9, adult Start:12-Nov-2018 Instruction Type:Provider Instructions for Treatment How to access health informa tion online Indication:Non-smoker Start:07-Oct-2018 Instruction Type:Patient Education How to access health informa tion online - Detail Indication:Non-smoker Start:07-Oct-2018 Instruction Type:Patient Education Patient Instructions Indication:Non-smoker Start:07-Oct-2018 Instruction Type:Provider Instructions for Treatment How to access health informa tion online Indication:Non-smoker Start:03-Jul-2018 Instruction Type:Patient Education How to access health informa tion online - Detail Indication:Non-smoker Start:03-Jul-2018 Instruction Type:Patient Education Patient Instructions Indication:Non-smoker Start:03-Jul-2018 Instruction Type:Provider Instructions for Treatment Water in diet, brief version Indication:Cystitis, acute Start:14-Oct-2007 Instruction Type:Patient Education Name Dates Details How to access health informa tion online Indication:Non-smoker Start:02-Oct-2019 Instruction Type:Patient Education How to access health informa tion online - Detail Indication:Non-smoker Start:02-Oct-2019 Instruction Type:Patient Education Patient Instructions Indication:Non-smoker Start:02-Oct-2019 Instruction Type:Provider Instructions for Treatment How to access health informa tion online Indication:BMI 20.0-20.9, adult Start:11-May-2019 Instruction Type:Patient Education How to access health informa tion online - Detail Indication:BMI 20.0-20.9, adult Start:11-May-2019 Instruction Type:Patient Education Patient Instructions Indication:Sinusitis, bacterial Start:11-May-2019 Instruction Type:Provider Instructions for Treatment How to access health informa tion online Indication:BMI 21.0-21.9, adult Start:12-Nov-2018 Instruction Type:Patient Education How to access health informa tion online - Detail Indication:BMI 21.0-21.9, adult Start:12-Nov-2018 Instruction Type:Patient Education Patient Instructions Indication:BMI 21.0-21.9, adult Start:12-Nov-2018 Instruction Type:Provider Instructions for Treatment How to access health informa tion online Indication:Non-smoker Start:07-Oct-2018 Instruction Type:Patient Education How to access health informa tion online - Detail Indication:Non-smoker Start:07-Oct-2018 Instruction Type:Patient Education Patient Instructions Indication:Non-smoker Start:07-Oct-2018 Instruction Type:Provider Instructions for Treatment How to access health informa tion online Indication:Non-smoker Start:03-Jul-2018 Instruction Type:Patient Education How to access health informa tion online - Detail Indication:Non-smoker Start:03-Jul-2018 Instruction Type:Patient Education Patient Instructions Indication:Non-smoker Start:03-Jul-2018 Instruction Type:Provider Instructions for Treatment Water in diet, brief version Indication:Cystitis, acute Start:14-Oct-2007 Instruction Type:Patient Education Name Dates Details How to access health informa tion online Indication:Non-smoker Start:02-Oct-2019 Instruction Type:Patient Education How to access health informa tion online - Detail Indication:Non-smoker Start:02-Oct-2019 Instruction Type:Patient Education Patient Instructions Indication:Non-smoker Start:02-Oct-2019 Instruction Type:Provider Instructions for Treatment How to access health informa tion online Indication:BMI 20.0-20.9, adult Start:11-May-2019 Instruction Type:Patient Education How to access health informa tion online - Detail Indication:BMI 20.0-20.9, adult Start:11-May-2019 Instruction Type:Patient Education Patient Instructions Indication:Sinusitis, bacterial Start:11-May-2019 Instruction Type:Provider Instructions for Treatment How to access health informa tion online Indication:BMI 21.0-21.9, adult Start:12-Nov-2018 Instruction Type:Patient Education How to access health informa tion online - Detail Indication:BMI 21.0-21.9, adult Start:12-Nov-2018 Instruction Type:Patient Education Patient Instructions Indication:BMI 21.0-21.9, adult Start:12-Nov-2018 Instruction Type:Provider Instructions for Treatment How to access health informa tion online Indication:Non-smoker Start:07-Oct-2018 Instruction Type:Patient Education How to access health informa tion online - Detail Indication:Non-smoker Start:07-Oct-2018 Instruction Type:Patient Education Patient Instructions Indication:Non-smoker Start:07-Oct-2018 Instruction Type:Provider Instructions for Treatment How to access health informa tion online Indication:Non-smoker Start:03-Jul-2018 Instruction Type:Patient Education How to access health informa tion online - Detail Indication:Non-smoker Start:03-Jul-2018 Instruction Type:Patient Education Patient Instructions Indication:Non-smoker Start:03-Jul-2018 Instruction Type:Provider Instructions for Treatment Water in diet, brief version Indication:Cystitis, acute Start:14-Oct-2007 Instruction Type:Patient Education Name Dates Details How to access health informa tion online Indication:Non-smoker Start:02-Oct-2019 Instruction Type:Patient Education How to access health informa tion online - Detail Indication:Non-smoker Start:02-Oct-2019 Instruction Type:Patient Education Patient Instructions Indication:Non-smoker Start:02-Oct-2019 Instruction Type:Provider Instructions for Treatment How to access health informa tion online Indication:BMI 20.0-20.9, adult Start:11-May-2019 Instruction Type:Patient Education How to access health informa tion online - Detail Indication:BMI 20.0-20.9, adult Start:11-May-2019 Instruction Type:Patient Education Patient Instructions Indication:Sinusitis, bacterial Start:11-May-2019 Instruction Type:Provider Instructions for Treatment How to access health informa tion online Indication:BMI 21.0-21.9, adult Start:12-Nov-2018 Instruction Type:Patient Education How to access health informa tion online - Detail Indication:BMI 21.0-21.9, adult Start:12-Nov-2018 Instruction Type:Patient Education Patient Instructions Indication:BMI 21.0-21.9, adult Start:12-Nov-2018 Instruction Type:Provider Instructions for Treatment How to access health informa tion online Indication:Non-smoker Start:07-Oct-2018 Instruction Type:Patient Education How to access health informa tion online - Detail Indication:Non-smoker Start:07-Oct-2018 Instruction Type:Patient Education Patient Instructions Indication:Non-smoker Start:07-Oct-2018 Instruction Type:Provider Instructions for Treatment How to access health informa tion online Indication:Non-smoker Start:03-Jul-2018 Instruction Type:Patient Education How to access health informa tion online - Detail Indication:Non-smoker Start:03-Jul-2018 Instruction Type:Patient Education Patient Instructions Indication:Non-smoker Start:03-Jul-2018 Instruction Type:Provider Instructions for Treatment Water in diet, brief version Indication:Cystitis, acute Start:14-Oct-2007 Instruction Type:Patient Education Name Dates Details How to Access Health Informa tion Online using Patient Portal and 3rd [employer] Apps Indication:Non-smoker Start:16-Dec-2020 Instruction Type:Patient Education Patient Instructions Indication:Non-smoker Start:16-Dec-2020 Instruction Type:Provider Instructions for Treatment How to access health informa tion online Indication:Non-smoker Start:02-Oct-2019 Instruction Type:Patient Education How to access health informa tion online - Detail Indication:Non-smoker Start:02-Oct-2019 Instruction Type:Patient Education Patient Instructions Indication:Non-smoker Start:02-Oct-2019 Instruction Type:Provider Instructions for Treatment How to access health informa tion online Indication:BMI 20.0-20.9, adult Start:11-May-2019 Instruction Type:Patient Education How to access health informa tion online - Detail Indication:BMI 20.0-20.9, adult Start:11-May-2019 Instruction Type:Patient Education Patient Instructions Indication:Sinusitis, bacterial Start:11-May-2019 Instruction Type:Provider Instructions for Treatment How to access health informa tion online Indication:BMI 21.0-21.9, adult Start:12-Nov-2018 Instruction Type:Patient Education How to access health informa tion online - Detail Indication:BMI 21.0-21.9, adult Start:12-Nov-2018 Instruction Type:Patient Education Patient Instructions Indication:BMI 21.0-21.9, adult Start:12-Nov-2018 Instruction Type:Provider Instructions for Treatment How to access health informa tion online Indication:Non-smoker Start:07-Oct-2018 Instruction Type:Patient Education How to access health informa tion online - Detail Indication:Non-smoker Start:07-Oct-2018 Instruction Type:Patient Education Patient Instructions Indication:Non-smoker Start:07-Oct-2018 Instruction Type:Provider Instructions for Treatment How to access health informa tion online Indication:Non-smoker Start:03-Jul-2018 Instruction Type:Patient Education How to access health informa tion online - Detail Indication:Non-smoker Start:03-Jul-2018 Instruction Type:Patient Education Patient Instructions Indication:Non-smoker Start:03-Jul-2018 Instruction Type:Provider Instructions for Treatment Water in diet, brief version Indication:Cystitis, acute Start:14-Oct-2007 Instruction Type:Patient Education Name Dates Details How to access health informa tion online Indication:BMI 20.0-20.9, adult Start:11-May-2019 Instruction Type:Patient Education How to access health informa tion online - Detail Indication:BMI 20.0-20.9, adult Start:11-May-2019 Instruction Type:Patient Education Patient Instructions Indication:Sinusitis, bacterial Start:11-May-2019 Instruction Type:Provider Instructions for Treatment How to access health informa tion online Indication:BMI 21.0-21.9, adult Start:12-Nov-2018 Instruction Type:Patient Education How to access health informa tion online - Detail Indication:BMI 21.0-21.9, adult Start:12-Nov-2018 Instruction Type:Patient Education Patient Instructions Indication:BMI 21.0-21.9, adult Start:12-Nov-2018 Instruction Type:Provider Instructions for Treatment How to access health informa tion online Indication:Non-smoker Start:07-Oct-2018 Instruction Type:Patient Education How to access health informa tion online - Detail Indication:Non-smoker Start:07-Oct-2018 Instruction Type:Patient Education Patient Instructions Indication:Non-smoker Start:07-Oct-2018 Instruction Type:Provider Instructions for Treatment How to access health informa tion online Indication:Non-smoker Start:03-Jul-2018 Instruction Type:Patient Education How to access health informa tion online - Detail Indication:Non-smoker Start:03-Jul-2018 Instruction Type:Patient Education Patient Instructions Indication:Non-smoker Start:03-Jul-2018 Instruction Type:Provider Instructions for Treatment Water in diet, brief version Indication:Cystitis, acute Start:14-Oct-2007 Instruction Type:Patient Education Name Dates Details How to Access Health Informa tion Online using Patient Portal and [employer]rd [employer] Apps Indication:Non-smoker Start:16-Dec-2020 Instruction Type:Patient Education Patient Instructions Indication:Non-smoker Start:16-Dec-2020 Instruction Type:Provider Instructions for Treatment How to access health informa tion online Indication:Non-smoker Start:02-Oct-2019 Instruction Type:Patient Education How to access health informa tion online - Detail Indication:Non-smoker Start:02-Oct-2019 Instruction Type:Patient Education Patient Instructions Indication:Non-smoker Start:02-Oct-2019 Instruction Type:Provider Instructions for Treatment How to access health informa tion online Indication:BMI 20.0-20.9, adult Start:11-May-2019 Instruction Type:Patient Education How to access health informa tion online - Detail Indication:BMI 20.0-20.9, adult Start:11-May-2019 Instruction Type:Patient Education Patient Instructions Indication:Sinusitis, bacterial Start:11-May-2019 Instruction Type:Provider Instructions for Treatment How to access health informa tion online Indication:BMI 21.0-21.9, adult Start:12-Nov-2018 Instruction Type:Patient Education How to access health informa tion online - Detail Indication:BMI 21.0-21.9, adult Start:12-Nov-2018 Instruction Type:Patient Education Patient Instructions Indication:BMI 21.0-21.9, adult Start:12-Nov-2018 Instruction Type:Provider Instructions for Treatment How to access health informa tion online Indication:Non-smoker Start:07-Oct-2018 Instruction Type:Patient Education How to access health informa tion online - Detail Indication:Non-smoker Start:07-Oct-2018 Instruction Type:Patient Education Patient Instructions Indication:Non-smoker Start:07-Oct-2018 Instruction Type:Provider Instructions for Treatment How to access health informa tion online Indication:Non-smoker Start:03-Jul-2018 Instruction Type:Patient Education How to access health informa tion online - Detail Indication:Non-smoker Start:03-Jul-2018 Instruction Type:Patient Education Patient Instructions Indication:Non-smoker Start:03-Jul-2018 Instruction Type:Provider Instructions for Treatment Water in diet, brief version Indication:Cystitis, acute Start:14-Oct-2007 Instruction Type:Patient Education Name Dates Details How to Access Health Informa tion Online using Patient Portal and 3rd [employer] Apps Indication:Non-smoker Start:16-Dec-2020 Instruction Type:Patient Education Patient Instructions Indication:Non-smoker Start:16-Dec-2020 Instruction Type:Provider Instructions for Treatment How to access health informa tion online Indication:Non-smoker Start:02-Oct-2019 Instruction Type:Patient Education How to access health informa tion online - Detail Indication:Non-smoker Start:02-Oct-2019 Instruction Type:Patient Education Patient Instructions Indication:Non-smoker Start:02-Oct-2019 Instruction Type:Provider Instructions for Treatment How to access health informa tion online Indication:BMI 20.0-20.9, adult Start:11-May-2019 Instruction Type:Patient Education How to access health informa tion online - Detail Indication:BMI 20.0-20.9, adult Start:11-May-2019 Instruction Type:Patient Education Patient Instructions Indication:Sinusitis, bacterial Start:11-May-2019 Instruction Type:Provider Instructions for Treatment How to access health informa tion online Indication:BMI 21.0-21.9, adult Start:12-Nov-2018 Instruction Type:Patient Education How to access health informa tion online - Detail Indication:BMI 21.0-21.9, adult Start:12-Nov-2018 Instruction Type:Patient Education Patient Instructions Indication:BMI 21.0-21.9, adult Start:12-Nov-2018 Instruction Type:Provider Instructions for Treatment How to access health informa tion online Indication:Non-smoker Start:07-Oct-2018 Instruction Type:Patient Education How to access health informa tion online - Detail Indication:Non-smoker Start:07-Oct-2018 Instruction Type:Patient Education Patient Instructions Indication:Non-smoker Start:07-Oct-2018 Instruction Type:Provider Instructions for Treatment How to access health informa tion online Indication:Non-smoker Start:03-Jul-2018 Instruction Type:Patient Education How to access health informa tion online - Detail Indication:Non-smoker Start:03-Jul-2018 Instruction Type:Patient Education Patient Instructions Indication:Non-smoker Start:03-Jul-2018 Instruction Type:Provider Instructions for Treatment Water in diet, brief version Indication:Cystitis, acute Start:14-Oct-2007 Instruction Type:Patient Education Summary Purpose Advance Directives No Advanced Directives Records FoundNo Advanced Directives Records Found Additional Source Comments INFORMATION SOURCE (unrecogn ized section and content) DATE CREATED AUTHOR AUTHOR'S ORGANIZ ATION 10/05/2023 [facility] Source Comments (unrecognize d section and content) In the event this informatio n is protected by the Federal Confidentiality of Alcohol and Drug Abuse Patient Records regulations: The Federal rules restrict any use of the information to criminally investigate or prosecute any alcohol or drug abuse patient.[facility] the event this information is protected by the Federal Confidentiality of Alcohol and Drug Abuse Patient Records regulations: The Federal rules restrict any use of the information to criminally investigate or prosecute any alcohol or drug abuse patient.[facility] Care Teams (unrecognized sec tion and content) 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 This clinical summary was aggregated from multiple sources. Caution should be exercised in using it in the provision of clinical care. This summary normalizes information from multiple sources, and as a consequence, information in this document may materially change the coding, format and clinical context of patient data. In addition, data may be omitted in some cases. CLINICAL DECISIONS SHOULD BE BASED ON THE PRIMARY CLINICAL RECORDS. [employer] provides no warranty or guarantee of the accuracy or completeness of information in this document.
[2024-02-03 09:49] LABS: AST(SGOT) 22 U/L (15-37); Alanine Aminotransfer ALT/SGPT 26 U/L (13-56)
== END | disposition home or self-care (01) ==
LOC: LAB 08:52
PROVIDERS: PCP Internal Medicine; Visit Provider Dermatology
DX: Z79.899 Other long term (current) drug therapy (principal)
CPT/HCPCS: 36415; 84450; 84460; 85025

== ENCOUNTER → 2024-08-05 | Outpatient (CLI) | payer BC, SELFPAY ==
[2024-08-05 10:01] LABS: Absolute Neutrophil Count 3.4 X10^3/uL (2.0-7.7); Basophil# 0.08 X10^3/uL; Basophil% 1.3 % (0-1); Eosinophil# 0.18 X10^3/uL; Eosinophils% 2.9 % (0-5); Hematocrit 37.5 % (37-47); Hemoglobin 12.1 g/dL (12.0-15.0); Lymphocyte % 34.9 % (19-41); Mean Corp Hgb Conc 32.3 g/dL (32-36); Mean Corpuscular Hgb 29.7 pg (27.0-32.0); Mean Corpuscular Volume 92.1 fL (81-99); Mean Platelet Vol. 9.8 fl (6.2-12.0); Monocyte# 0.47 X10^3/uL; Monocyte% 7.4 % (0-10); NRBC Flagged by Analyzer 0 % (0-5); Neutrophil # 3.36 X10^3/uL (2.7-7.7); Neutrophil % 53.2 % (47-70); Platelet Count 297 K/mm3 (150-450); RBC Distribution Width CV 12.3 % (11.6-14.6); RBC Distribution Width SD 41.4 fl (35.1-43.9); Red Blood Count 4.07 M/mm3 (4.2-5.4); White Blood Count 6.3 K/mm3 (4.4-11.0)
[2024-08-05 10:44] LABS: AST(SGOT) 21 U/L (15-37); Alanine Aminotransfer ALT/SGPT 23 U/L (13-56); Albumin, Serum 3.7 g/dL (3.2-5.0); Alkaline Phosphatase 60 U/L (45-117); Bilirubin, Direct 0.12 mg/dL (0.00-0.30); Globulin 3.6 g/dL (2.2-4.2); Protein, Total 7.3 g/dL (6.4-8.2)
== END | disposition home or self-care (01) ==
PROVIDERS: PCP Internal Medicine; Referring Provider Dermatology; Visit Provider Dermatology
DX: M35.9 Systemic involvement of connective tissue, unspecified (principal); Z79.899 Other long term (current) drug therapy; L70.0 Acne vulgaris; D22.5 Melanocytic nevi of trunk; L82.1 Other seborrheic keratosis; L57.8 Other skin changes due to chronic exposure to nonionizing radiation; Z71.89 Other specified counseling
CPT/HCPCS: 36415; 80076; 85025

== ENCOUNTER → 2024-09-29 | Outpatient (CLI) | payer BC, SELFPAY ==
--- NOTE | 2024-09-29 13:34 | BI_ITS ---
MAMMOGRAPHY - BILATERAL SCREENING REASON FOR EXAM: Female, 43 years old. Routine annual screening examination. PERTINENT HISTORY: Aunt with breast cancer. Prior bilateral breast reduction surgery. TECHNIQUE: Digital bilateral breast kandy (3D mammographic acquisition) in the CC and MLO projections. 2-D mediolateral oblique (MLO) and craniocaudad (CC) views of both breasts were obtained. CAD: Full Field Digital Mammography with Computer Added Detection was performed. COMPARISON: Comparison is made with prior study dated 03/12/2023 and January 30, 2022. FINDINGS: Breast Composition: The breasts are extremely dense, which lowers the sensitivity of mammography. There are no dominant masses or suspicious calcifications. No other significant abnormalities are identified. There has been no significant change since the prior study. BI/SCRN MAMM (CAD)W/KANDY BILAT IMPRESSION: Stable bilateral screening mammogram. Yearly follow-up mammogram recommended. (A) ASSESSMENT CATEGORY: BIRADS Category 1: Negative. A letter regarding these results will be sent to the patient by the facility within 30 days. Approximately 10% of breast cancers are not detected by mammography. A normal mammogram should not delay biopsy of a clinically suspicious abnormality. [id number] Electronically Signed: Radu Cramer MD at 14:48 EDT ,
--- OUTSIDE RECORDS SUMMARY | 2024-09-29 19:15 | XMS RPT_ITS | CCD ---
Author Organization [facility]iniSyn[facility] Care Team Providers Care Melt Room Operator Name Role Phone Zainab Richey Unavailable Jenni Nayak Unavailable Gin Irwin Unavailable Unavailable Unavailable Unavailable Sharmin Mcfarland Unavailable Unavailable Colette Narayan Unavailable Unavailable Blanquita Russell Unavailable Unavailable Unavailable Kaiden Zainab Unavailable Unavailable Kaiden, Zainab Unavailable Unavailable Kaiden Zainab Unavailable Unavailable Gravius, Ruthy Unavailable Unavailable Markell Barnhart Unavailable Unavailable KaidenSierraZainab Unavailable Jenni Nayak Unavailable Gravius, Ruthy Unavailable Unavailable Unavailable Unavailable Kristen, Tigist Unavailable Unavailable Gin Garcia Unavailable Unavailable Elissa Pineda Unavailable Gin Irwin Unavailable Unavailable Kristen, Tigist Unavailable Unavailable Elissa Pineda Unavailable Gin Irwin Unavailable Unavailable Nadja Rowell Unavailable Unavailable Kaiden BECERRA Zainab Unavailable Elissa Pineda Unavailable Dr. Jenni Nayak MD Unavailable Nadja Rowell LPN Unavailable Unavailable Unavailable Unavailable Martha Santos LPN Unavailable Unavailable CiIvory wolfe CNP Unavailable Kaiden BECERRA Zainab Unavailable Ivory Francois Unavailable Zainab Richey DO Primary Care Provider Zainab Richey DO Primary Care Provider ZAINAB RICHEY Primary Care Unavailab le KAIDENZAINAB Primary Care Unavailab le KAIDENZAINAB Primary Care Unavailab le KAIDEN, ZAINAB SAUNDERS Primary Care Unavailab le Allergies Allergy Classification Reported Allergen(s) Allergy Type Date of Onset Reaction(s) Facility Penicillins (antibiotic) (1 source) Penicillins; Translations: [Penicillins] Drug Allergy [facility] Work Phone: (20 sources) Penicillins; Translations: [Penicillins] allergy to substance 01-10-20 Anaphylaxis [facility] Work Phone: (5 sources) Acetaminophen / HYDROcodone; Translations: [HYDROCODONE-ACET AMINOPHEN] Drug Allergy 07-17-20 GI Upset [facility] Work Phone: (5 sources) Codeine; Translations: [CODEINE] Drug Allergy 07-17-20 GI Upset [facility] Work Phone: (2 sources) SEASONAL [Other] Propensity to adverse reactions 07-17-20 [facility] Work Phone: (1 source) OTHER; Translations: [OTHER] Propensity to adverse reactions (disorder) 07-17-20 [facility] Medications Current Medications Medication Drug Class(es) Dates Sig (Normalized) Sig (Original) 12 hr cetirizine hydrochloride 5 mg / pseudoephedrine hydrochloride 120 mg extended release oral tablet (4 sources) alpha-Adrenergic Agonist, Histamine-1 Receptor Antagonist take 1 tablet by mouth twice daily cetirizine-pseudoep hedrine (ZYRTEC-D) 5-120 mg per tablet Indications: Sinobronchitis Take 1 tablet by mouth twice daily. Active Comment on above: Take 1 tablet by tanja twice daily. fluconazole 150 mg oral tablet (3 sources) Azole Antifungal Start: 09-03-2024 End: 09-03-2024 take 1 tablet by mouth once fluconazole (DIFLUCAN) 150 mg tablet Indications: Vaginal discharge Take 1 tablet by mouth one time only for 1 dose. 1 tablet 09/03/2024 09/03/2024 Active Start: 08-02-2021 Diflucan 150 M G Oral Tablet 1 (one) Tablet q72 x 2 days for 0 days Quantity: 2 {Tablet} Refills: 1 Ordered: 02-Aug-2021 Ivory Francois Start : 02-Aug-2021 Active gabapentin 100 mg oral capsule (4 sources) Anti-epileptic Agent Start: 06-16-2019 take 1 capsule by mouth once, then take 1 capsule by mouth every two hours gabapentin (NEURONTIN) 100 mg capsule Indications: Calculus of kidney Take 1 capsule by mouth one time only for 1 dose. 2 hrs prior to procedure 1 capsule 06/16/2019 Active Comment on above: Take 1 capsule by [facility] one time only for 1 dose. 2 hrs prior to procedure hydroxychloroquine sulfate 200 mg oral tablet (3 sources) Antimalarial, Antirheumatic Agent Start: 01-03-2024 take 1 tablet by mouth twice daily, then take 1 tablet by mouth once daily hydrOXYchloroQUINE (PLAQUENIL) 200 mg tablet TAKE 1 TABLET BY MOUTH 2 TIMES A DAY ALTERNATING WITH 1 TABLET DAILY 01/03/2024 Active Comment on above: TAKE 1 TABLET BY [facility] 2 TIMES A DAY ALTERNATING WITH 1 TABLET DAILY MULTIVIT WITH CALCIUM,IRON,MIN (ONE-A-DAY WOMENS FORMULA ORAL) (4 sources) MULTIVIT WITH CALCIUM,IRON,MIN (ONE-A-DAY WOMENS FORMULA ORAL) Take by mouth once daily. Active MULTIVIT WITH CA LCIUM,IRON,MIN (ONE-A-DAY WOMENS FORMULA ORAL) Take by mouth once daily. 0 Active Comment on above: Take by mouth once d aily. 24 hr oxybutynin chloride 5 mg extended release oral tablet (4 sources) Cholinergic Muscarinic Antagonist Start: 06-18-20 19 take 2 tablets by mouth once daily oxybutynin XL (DITROPAN XL) 5 mg 24 hr tablet Take 2 tablets by mouth once daily for 7 days. 14 tablet 1 06/18/2019 Active Comment on above: Take 2 tablets by [facility] once daily for 7 days. spironolactone 50 mg oral tablet (20 sources) Aldosterone Antagonist take 1 tablet by mouth once daily spironolactone (ALDACTONE) 50 mg tablet Take 50 mg by mouth once daily. Active Comment on above: Take 50 mg by mouth once daily. tamsulosin hydrochloride 0.4 mg oral capsule (4 sources) alpha-Adrenergic Yuan Start: 05-25-20 19 take 1 capsule by mouth once daily tamsulosin ER (FLOMAX) 0.4 mg cap Take 1 capsule by mouth once daily. 30 capsule 3 05/25/2019 Active Comment on above: Take 1 capsule by [facility] once daily. Completed/Discontinued Medications Medication Drug Class(es) Dates Sig [...] TAB QD FOR 4 DAYSDISPENSE ONE Z-PACK End: 02-15-2016 AZITHROMYCIN, 250MG (Oral Ta blet) 1 tab uad for 0 days Refills: 0 Ordered: 15-Feb-2016 Gin Irwin RN End : 15-Feb-2016 Inactive Comments: z-jay Comment on above: 2 TABS DAY 1 AND 1 T AB QD FOR 4 DAYSDISPENSE ONE Z-PACK z-jay calcium ascorbate 60 mg / calcium threonate 0.8 mg / ferrous asparto glycinate 50 mg / folic acid 1 mg / polysaccharide iron complex 100 mg / succinic acid 50 mg / vitamin b12 0.025 mg oral capsule (20 sources) Vitamin B12 End: 009 take 1 capsule by mouth once daily NIFEREX-150 FORTE, 50-100MG (Oral Capsule) 1 Daily for 0 days Refills: 0 Ordered: 31-Dec-2008 Gin Irwin RN End : 31-Dec-2008 Inactive ciprofloxacin 500 mg oral tablet (20 sources) Quinolone Antimicrobial Start: 007 End: 007 take 1 tablet by mouth twice daily CIPRO, 500MG (Oral Tablet) 1 Tablet bid for 3 days Refills: 0 Ordered: 14-Oct-2007 Ivory Francois Start : 14-Oct-2007 End : 05-Nov-2007 Inactive clarithromycin 500 mg oral tablet (15 sources) Macrolide Antimicrobial Start: 019 End: 019 take 1 tablet by mouth twice daily at mealtime Clarithromycin 500 MG Oral Tablet 1 (one) Tablet PO BID for 14 days Quantity: 28 {Tablet} Refills: 0 Ordered: 11-May-2019 Gin Garcia Start : 11-May-2019 End : 25-May-2019 Inactive Comments: Take with food Comment on above: Take with food levoFLOXacin 500 mg oral tablet (20 sources) Quinolone Antimicrobial Start: 010 End: 016 take 1 tablet by mouth once daily LEVAQUIN, 500MG (Oral Tablet) 1 (one) Tablet qd for 0 days Quantity: 10 {Tablet} Refills: 0 Ordered: 15-Feb-2016 Gin Irwin RN Start : 17-May-2010 End : 15-Feb-2016 Inactive levonorgestrel (20 sources) Progestin, Progestin-containing Intrauterine Device mirena' Inactive predniSONE 20 mg oral tablet (19 sources) Start: 018 End: PredniSONE 20 MG Oral Tablet 1 (one) Tablet one a day for 5 days then 1/2 a day for 6 days for 11 days Refills: 0 Ordered: 07-Oct-2018 Blanquita Russell MD Start : 07-Oct-2018 End : 18-Oct-2018 Inactive valACYclovir 500 mg oral tablet (20 sources) Herpesvirus Nucleoside Analog DNA Polymerase Inhibitor, Herpes Simplex Virus Nucleoside Analog DNA Polymerase Inhibitor, Herpes Zoster Virus Nucleoside Analog DNA Polymerase Inhibitor Start: 021 take 1 tablet by mouth once daily Valtrex 500 MG Oral Tablet 1 (one) Tablet qd for 0 days Quantity: 30 {Tablet} Refills: 0 Ordered: 23-Mar-2021 Zainab Richey DO, DO, Kathleen Start : 23-Mar-2021 Active Start: 02-25-2020 take 1 tablet by tanja th once daily Valtrex 500 MG Oral Tablet 1 (one) Tablet qd for 0 days Quantity: 30 {Tablet} Refills: 3 Ordered: 25-Feb-2020 Zainab Richey DO, DO, Kathleen Start : 25-Feb-2020 Active Start: 10-02-2019 take 1 tablet by tanja th once daily Valtrex 500 MG Oral Tablet 1 (one) Tablet qd for 0 days Quantity: 30 {Tablet} Refills: 3 Ordered: 02-Oct-2019 KaidenZainab suarez DO KaidenZainab suarez DO Start : 02-Oct-2019 Active Start: 09-08-2019 take 1 tablet by tanja th once daily Valtrex 500 MG Oral Tablet 1 (one) Tablet qd for 0 days Quantity: 30 {Tablet} Refills: 0 Ordered: 08-Sep-2019 Zainab Richey DO, DO, Kathleen Start : 08-Sep-2019 Active Start: 01-12-2019 End: 05-11-2019 take 1 tablet by mouth once daily Valtrex 500 MG Oral Tablet 1 (one) Tablet qd for 0 days Quantity: 30 {Tablet} Refills: 2 Ordered: 11-May-2019 Lexusblessing Tigist Start : 12-Jan-2019 End : 11-May-2019 Inactive Start: 09-11-2018 take 1 tablet by tanja th once daily Valtrex 500 MG Oral Tablet 1 (one) Tablet Tablet qd for 0 days Quantity: 30 {Tablet} Refills: 2 Ordered: 11-Sep-2018 Zainab Richey DO, DO, Kathleen Start : 11-Sep-2018 Active Problems Active Problems Problem Classification Problem Date Documented Date Episodic/Chronic Allergic reactions (20 sources) Contact dermatitis due to poison karolina; Translations: [Contact dermatitis due to poison karolina (Renamed from Poison karolina)] 10-07-2018 Episodic Asthma (4 sources) Mild intermittent asthma; Translations: [Mild intermittent asthma, uncomplicated] Onset: 06-05-2019 06-05-2019 Chronic Coagulation and hemorrhagic disorders (6 sources) von Willebrand disorder; Translations: [Von Willebrand's disease] Onset: 08-29-2006 Resolved: 04-14-2012 04-14-2012 Chronic Deficiency and other anemia (12 sources) Anemia; Translations: [Anemia] 12-16-2020 Episodic Diseases of white blood cells (2 sources) Leukocytosis; Translations: [Elevated WBC count] 08-02-2021 Chronic Comment on above: WBC 12-20-20 was 8.0 and 08-01-21 was 11.0, repeating per Dr. Baez in a week. Genitourinary symptoms and ill-defined conditions (2 sources) Urinary symptoms ; Translations: [UTI symptoms] 08-02-2021 Episodic Lymphadenitis (20 sources) Lymphadenopathy; Translations: [Lymphadenopathy] 11-19-2018 Episodic Malaise and fatigue (20 sources) Fatigue; Translations: [Fatigue] Resolved: 05-17-2009 02-15-2016 Episodic Comment on above: Fatigue vs mono vsCM VIf all tests back with symptoms, will do CMV Nonmalignant breast conditions (20 sources) Other signs and symptoms in breast; Translations: [Other signs and symptoms in breast] Resolved: 05-17-2009 02-15-2016 Episodic Other circulatory disease (20 sources) Vasculitis; Translations: [Vasculitis] 07-03-2018 Chronic Other circulatory disease (3 sources) Disorder of cardiovascular system; Translations: [Impaired circulation] 12-16-2020 Episodic Other connective tissue disease (9 sources) Pain in right toe(s); Translations: [Pain of toes of bilateral feet] 07-03-2018 Episodic Comment on above: but worse on R than L purple toes and PARTHA up - followed up with rheum and had bx toes when it happens-- and it has turned out to be nothingchillvlains-- is closest thing its too - they said it was not raynauds Other ear and sense organ disorders (15 sources) Ear pressure sensation; Translations: [Ear pressure] 05-11-2019 Episodic Other female genital disorders (9 sources) Vaginal bleeding; Translations: [Vaginal bleeding] 12-16-2020 Chronic Comment on above: heavy periods Other female genital disorders (20 sources) Vaginal bleeding; Translations: [Vaginal bleeding] 07-03-2018 Episodic Comment on above: heavy periods Other female genital disorders (1 source) Vaginal discharge; Translations: [Other specified noninflammatory disorders of vagina] 09-03-2024 Episodic Other screening for suspected conditions (not mental disorders or infectious disease) (5 sources) Breast neoplasm screening status; Translations: [Patient encounter status] 11-12-2018 Episodic Other upper respiratory disease (15 sources) Nasal sinus problem; Translations: [Sinus pressure] 05-11-2019 Episodic Other upper respiratory infections (15 sources) Chronic sinusitis, unspecified; Translations: [Bacterial sinusitis] 05-11-2019 Chronic Other upper respiratory infections (20 sources) Acute sinusitis; Translations: [Acute sinusitis] 07-03-2018 Episodic Residual codes; unclassified (3 sources) Non-smoker; Translations: [Non-smoker] 12-16-2020 Episodic Unclassified (17 sources) Disorder of cardiovascular system; Translations: [Impaired circulation] 07-03-2018 Chronic Unclassified (20 sources) Unclassified (20 sources) Pain in toes of both feet Unclassified (20 sources) Non-smoker; Translations: [Non-smoker] 07-03-2018 Unclassified (20 sources) Cystitis,Acute (595.0) Unclassified (20 sources) BMI 21.0-21.9, adult; Translations: [Body mass index 20-24 - normal] 11-12-2018 Viral infection (20 sources) Herpesviral vesicular dermatitis; Translations: [Herpetic gingivostomatitis] Resolved: 05-17-2009 07-03-2018 Episodic Past or Other Problems Problem Classification Problem Date Documented Date Episodic/Chronic Calculus of urinary tract (4 sources) Kidney stone; Translations: [Calculus of kidney] Onset: 06-05-2019 06-05-2019 Episodic Nausea and vomiting (4 sources) Postoperative nausea and vomiting; Translations: [Nausea with vomiting, unspecified] Onset: 06-05-2019 06-05-2019 Episodic Nonmalignant breast conditions (11 sources) Breast signs and symptoms; Translations: [Other signs and symptoms in breast] Resolved: 05-17-2009 02-15-2016 Normal and/or delivery (20 sources) History of past delivery; Translations: [Vaginal delivery] Onset: 07-23-2006 Resolved: 04-14-2012 07-03-2018 Episodic Comment on above: Other complications of ; puerperium affecting management [...] [Pain in toes of both feet] 05-11-2019 Comment on above: but worse on R than L purple toes and PARTHA up - followed up with rheum and had bx toes when it happens-- and it has turned out to be nothingchillvlains-- is closest thing its too - they said it was not raynauds Other skin disorders (12 sources) Night sweats; Translations: [Night sweat] Resolved: 12-16-2020 10-02-2019 Episodic Unclassified (20 sources) Body mass index (BMI) 20.0-20.9, adult; Translations: [Body mass index (BMI) 21.0-21.9, adult] Onset: 06-05-2019 07-03-2018 Episodic Unclassified (20 sources) Recurrent cold sores Unclassified (20 sources) Nonpurulent mastitis associated with childbirth, delivered, with or without mention of antepartum condition (675.21) Unclassified (20 sources) Impaired circulation Unclassified (17 sources) Pregnancies (); Translations: [Pregnancies ()] 07-03-2018 Comment on above: 2. Unclassified (20 sources) COLD SORES (054.2) Unclassified (20 sources) BMI 20.0-20.9, adult Unclassified (20 sources) Encounter for screening mammogram for breast cancer (Renamed from Encounter for screening mammogram for malignant neoplasm of breast); Translations: [Patient encounter status] 11-12-2018 Unclassified (15 sources) Non-smoker; Translations: [Non-smoker] 11-12-2018 Unclassified (15 sources) Sinusitis, bacterial Unclassified (15 sources) Sinus pressure Unclassified (15 sources) Ear pressure Unclassified (11 sources) Body mass index 20-24 - normal; Translations: [BMI 20.0-20.9, adult] 05-11-2019 Unclassified (12 sources) Night sweat Unclassified (3 sources) Pregnancies (); Translations: [Pregnancies ()] 12-16-2020 Comment on above: 2. Unclassified (2 sources) Elevated WBC count Urinary tract infections (20 sources) Acute cystitis; Translations: [Cystitis, acute] Resolved: 06-16-2009 03-16-2016 Episodic Comment on above: urine test negative, will give cipro Urinary tract infections (4 sources) Urinary tract infections Results Test Name Value Interpretation Reference Range Facility [facility] 01-29-2024 [facility] Telephone (UCTR) LYNDA CARDENAS ([id number]) 1980 F Date Time Provider Department 01/29/24 AFSHIN MCCAULEY [facility] During your visit today, we recorded the following information about you: Afshin Mccauley PA 01/29/2024 10:33 AM Signed Please let patient know urine culture did not reveal any bacterial growth. Please follow-up with PCP if symptoms persist therefore, she does not have UTI. Desi Benjamin 01/29/2024 12:02 PM Signed Patient given results and verbalized understanding of instructions given. Desi Benjamin Allergies As of Date: 01/29/2024 Noted Allergy Reaction CODEINE 07/17/2006 8 - GI Upset PENICILLINS 01/10/2007 10 - Anaphylaxis SEASONAL [Other] 07/17/2006 VICODIN (HYDROCODONE-ACETAMINOP HE*07/17/2006 8 - GI Upset Date Reviewed: 01/28/2024 Reviewed by: Kristen Solano LPN - Fully Assessed Reason for Visit: Results [95] Prescriptions as of 01/29/2024 - hydrOXYchloroQUINE (PLAQUENIL) 200 mg tablet TAKE 1 TABLET BY MOUTH 2 TIMES A DAY ALTERNATING WITH 1 TABLET DAILY - oxybutynin XL (DITROPAN XL) 5 mg 24 hr tablet Take 2 tablets by mouth once daily for 7 days. - gabapentin (NEURONTIN) 100 mg capsule Take 1 capsule by mouth one time only for 1 dose. 2 hrs prior to procedure - tamsulosin ER (FLOMAX) 0.4 mg cap Take 1 capsule by mouth once daily. - cetirizine-pseudoephedr ine (ZYRTEC-D) 5-120 mg per tablet Take 1 tablet by mouth twice daily. - spironolactone (ALDACTONE) 50 mg tablet Take 50 mg by mouth once daily. - MULTIVIT WITH CALCIUM,IRON,MIN (ONE-A-DAY WOMENS FORMULA ORAL) Take by mouth once daily. Problem List As Of Date 01/29/2024 Noted Resolved Supervision of other normal [Z34.80] 07/23/2006 04/14/2012 Other and unspecified coagulation defects [D68.*08/29/2006 04/14/2012 Von Willebrand's disease [D68.00] BMI 21.0-21.9, adult [Z68.21] 06/05/2019 Calculus of kidney [N20.0] 06/05/2019 Mild intermittent asthma without complication [*06/05/2019 PONV (postoperative nausea and vomiting) [R11.2*06/05/2019 Encounter Status:Closed by DESI BENJAMIN on 01/29/24 Normal [facility] Bacteria Ur Culton Bacteria identified Cx Nom (U) CULTURE, URINE: No growth (<1,000 CFU/ml) Normal [facility] Comment on above: Performed By: #### 6 30-4 #### [facility] CLIA [id number] [address] [place] [address] [place] CNOVon 01-28-2024 CNOV Office Visit (UCWSTR ) LYNDA CARDENAS ([id number]) 1980 F Date Time Provider Department 01/28/24 8:15 AM MARIJA LAUREANO [facility] During your visit today, we recorded the following information about you: Temperature Pulse Respiration Blood pressure 97 degrees 74/minute 18/minute 109/66 Weight Last Period 60.3 kg 01/16/24 Marija Laureano, TOTERJOSESITO 01/28/2024 8:39 AM Signed Subjective HPI Lynda Cardenas is a 43 year old female who presents with possible UTI; complains of urinary frequency and pelvic pain for the past 2 days. Denies fever, chills, nausea or vomiting. Describes pelvic pain as dull, aching . LMP 01/26/24 Denies concern for STI Review of Systems Constitutional: Negative for chills and fever. Respiratory: Negative. Cardiovascular: Negative. Gastrointestinal: Negative for abdominal pain, nausea and vomiting. Genitourinary: Positive for frequency. Negative for dysuria and urgency. Musculoskeletal: Negative for back pain. BP 109/66 Pulse 74 Temp 36.1 ?C (97 ?F) Resp 18 Wt 60.3 kg (133 lb) LMP 01/16/2024 (Exact Date) SpO2 100% BMI 21.47 kg/m? PAST MEDICAL HISTORY Diagnosis Date Allergic rhinitis, cause unspecified Allergic rhinitis Kidney stones Salmonella 2016 Von Willebrand's disease (HCC) PAST SURGICAL HISTORY Procedure Laterality Date IUD INSERTION ([employer])_*FL 05/29/2007 Mirena, removed 2015 PAST SURGICAL HISTORY OF REMOVAL OF DYSPLASTIC VULVAR LESION REDUCTION OF LARGE BREAST Breast reduction TONSILLECTOMY PRIMARY/SECONDARY Tonsillectomy ALLERGIES Codeine, Penicillins, Seasonal [Other], and Vicodin [Hydrocodone-Acetaminop hen] MEDICATIONS hydrOXYchloroQUINE (PLAQUENIL) 200 mg tablet TAKE 1 TABLET BY MOUTH 2 TIMES A DAY ALTERNATING WITH 1 TABLET DAILY oxybutynin XL (DITROPAN XL) 5 mg 24 hr tablet Take 2 tablets by mouth once daily for 7 days. gabapentin (NEURONTIN) 100 mg capsule Take 1 capsule by mouth one time only for 1 dose. 2 hrs prior to procedure tamsulosin ER (FLOMAX) 0.4 mg cap Take 1 capsule by mouth once daily. cetirizine-pseudoephedr ine (ZYRTEC-D) 5-120 mg per tablet Take 1 tablet by mouth twice daily. (Patient not taking: Reported on 01/28/2024) spironolactone (ALDACTONE) 50 mg tablet Take 50 mg by mouth once daily. (Patient not taking: Reported on 01/28/2024) MULTIVIT WITH CALCIUM,IRON,MIN (ONE-A-DAY WOMENS FORMULA ORAL) Take by mouth once daily. (Patient not taking: Reported on 01/28/2024) FAMILY HISTORY Problem Relation Age of Onset Diabetes Father Cancer Maternal Grandmother HODGKINS Diabetes Maternal Grandmother Cancer Maternal Grandfather LUNG CANCER AND BOWEL CANCER Heart Maternal Grandfather CHF Hypertension Maternal Grandfather Hypertension Paternal Grandmother Hypertension Paternal Grandfather other (Von Willebrand's Disease) Sister Breast Cancer Maternal Aunt 42 Social History Tobacco Use Smoking status: Never Smokeless tobacco: Never Substance Use Topics Alcohol use: Yes Comment: Rarely Drug use: No Objective Physical Exam Vitals and nursing note reviewed. Constitutional: General: She is not in acute distress. Appearance: Normal appearance. She is not ill-appearing. Cardiovascular: Rate and Rhythm: Normal rate and regular rhythm. Heart sounds: Normal heart sounds. Pulmonary: Effort: Pulmonary effort is normal. No respiratory distress. Breath sounds: Normal breath sounds. No wheezing or rales. Abdominal: General: There is no distension. Palpations: Abdomen is soft. There is no mass. Tenderness: There is abdominal tenderness in the suprapubic area. There is no guarding. Skin: General: Skin is warm and dry. Neurological: Mental Status: She is alert. ASSESSMENT/PLAN: 1. Urination frequency - ICD9: 788.41, ICD10: R35.0 acute - UA normal in office today. - Send urine for culture - Patient education for prevention given - UA DIP, URINE (POC) - URINE CULTURE - SG >1.030- encouraged patient to increase water intake. - Follow-up with your PCP in 3-5 days if symptoms have not improved or sooner if symptoms worsen - Discussed red flags and need for immediate medical evaluation if any occur. - Discussed supportive care treatment with fluids, rest and analgesia. - Discussed expected course of illness Marija Laureano APRN.Marija Castro APRN.CNP 01/28/2024 8:39 AM Signed ASSESSMENT/PLAN: 1. Urination frequency - ICD9: 788.41, ICD10: R35.0 acute - UA normal in office today. - Send urine for culture - Patient education for prevention given - UA DIP, URINE (POC) - URINE CULTURE - SG >1.030- encouraged patient to increase water intake. - Follow-up with your PCP in 3-5 days if symptoms have not improved or sooner if symptoms worsen - Discussed red flags and need for immediate medical evaluation if any occur. - Discu (more content not included)... Normal [facility] URINE TRAY CULTURE (MARCY COL COUNT) ([id number])Ordered By: Registered Mail Clerk on 08-02-2021 Bacteria identified Cx Nom (U) Final report Normal [facility] Work Phone: Comment on above: PERFORMED BY: [employer] [place] [id number] Information: SRC:UR Bacteria identified Cx Nom (U) MUG Normal [facility]; [facility] Work Phone: Comment on above: Mixed urogenital zoë ra2,000 Colonies/mL PERFORMED BY: [employer] [place] [id number] Information: SRC:UR Urinalysis, Office ([id number])on 08-02-2021 Bilirubin Ql (U) Negative Normal [facility]; [facility] Work Phone: Glucose Test strip (U) [Mass/Vol] Negative Normal [facility]; [facility] Work Phone: Hemoglobin Ql (U) Negative Normal [facility]; [facility] Work Phone: Ketones Ql (U) Negative Normal [facility]; [facility] Work Phone: Leukocyte esterase Test strip Ql (U) Small Normal [facility]; [facility] Work Phone: Nitrite Ql (U) Negative Normal [facility]; [facility] Work Phone: pH (U) 6.0 [pH] Normal [facility]; [facility] Work Phone: Protein Ql (U) Negative Normal [facility]; [facility] Work Phone: Specific gravity (U) [Rel density] 1.030 1 Abnormal [facility]; [facility] Work Phone: Urobilinogen (24H U) [Mass/Time] Normal Normal [facility]; [facility] Work Phone: CBC, PLATELETS & AUT DIFF ([phone])Ordered By: Registered Mail Clerk on 12-20-2020 Basophils (Bld) [#/Vol] 0.1 {x10E3/uL} Normal 0.0-0.2 [facility]; [facility] Work Phone: Comment on above: PATIENT NOT FASTINGP ERFORMED BY: CB [facility] Bbsovw8114 [address] RoadDublin [place] [id number] Basophils (Bld) [#/Vol] 0.1 10*3/uL Normal 0.0-0.2 [facility]; [facility] Work Phone: Comment on above: PATIENT NOT FASTINGP ERFORMED BY: CB [facility] Wboxqx9133 [address] RoadDublin [place] [id number] Basophils/100 WBC (Bld) 1 % Normal [facility]; [facility] Work Phone: Comment on above: PATIENT NOT FASTINGP ERFORMED BY: CB [facility] Xnvquq5216 [address] RoadDublin [place] [id number] Eosinophils (Bld) [#/Vol] 0.2 {x10E3/uL} Normal 0.0-0.4 [facility]; [facility] Work Phone: Comment on above: PATIENT NOT FASTINGP ERFORMED BY: CB [facility] Wjbdap3205 [address] RoadDublin [place] [id number] Eosinophils (Bld) [#/Vol] 0.2 10*3/uL Normal 0.0-0.4 [facility]; [facility] Work Phone: Comment on above: PATIENT NOT FASTINGP ERFORMED BY: CB [facility] Ughfya8565 [address] RoadDublin [place] [id number] Eosinophils/100 WBC (Bld) 2 % Normal [facility]; [facility] Work Phone: Comment on above: PATIENT NOT FASTINGP ERFORMED BY: CB [facility] Vhpwxp4490 [address] RoadDublin [place] [id number] Erythrocyte distribution width (RBC) [Ratio] 12.2 % Normal 11.7-15.4 [facility]; [facility] Work Phone: Comment on above: PATIENT NOT FASTINGP ERFORMED BY: JERONIMO LabCobarber HolcombPehxhb2407 [address] Roadblin [place] [id number] Hematocrit (Bld) [Volume fraction] 38.4 % Normal 34.0-46.6 [facility]; [facility] Work Phone: Comment on above: PATIENT NOT FASTINGP ERFORMED BY: JERONIMO [facility] Xfagmp2600 [address] RoadC[facility] Hospitalin [place] [id number] Hemoglobin (Bld) [Mass/Vol] 12.5 g/dL Normal 11.1-15.9 [facility]; [facility] Work Phone: Comment on above: PATIENT NOT FASTINGP ERFORMED BY: JERONIMO Isbelllin6370 [address] Roadblin [place] [id number] Immature granulocytes (Bld) [#/Vol] 0.0 {x10E3/uL} Normal 0.0-0.1 [facility]; [facility] Work Phone: Comment on above: PATIENT NOT FASTINGP ERFORMED BY: JERONIMO [facility] Kalfxw2509 [address] RoadDuin [place] [id number] Immature granulocytes (Bld) [#/Vol] 0.0 10*3/uL Normal 0.0-0.1 [facility]; [facility] Work Phone: Comment on above: PATIENT NOT FASTINGP ERFORMED BY: JERONIMO [facility] Pncijl3703 [address] RoadDublin [place] [id number] Immature granulocytes/100 WBC (Bld) 0 % Normal [facility]; [facility] Work Phone: Comment on above: PATIENT NOT FASTINGP ERFORMED BY: CB [facility] Uvvvel4290 [address] RoadDublin [place] [id number] Lymphocytes (Bld) [#/Vol] 1.9 {x10E3/uL} Normal 0.7-3.1 [facility]; [facility] Work Phone: Comment on above: PATIENT NOT FASTINGP ERFORMED BY: CB [facility] Tcauag1486 [address] RoadDublin [place] [id number] Lymphocytes (Bld) [#/Vol] 1.9 10*3/uL Normal 0.7-3.1 [facility]; [facility] Work Phone: Comment on above: PATIENT NOT FASTINGP ERFORMED BY: JERONIMO Emiliano Holcomb[address] [facility] [place] [id number] Lymphocytes/100 WBC (Bld) 24 % Normal [facility]; [facility] Work Phone: Comment on above: PATIENT NOT FASTINGP ERFORMED BY: JERONIMO [facility] Gzrfuw9555 [facility] [id number] MCH (RBC) [Entitic mass] 30.4 pg Normal 26.6-33.0 [facility]; [facility] Work Phone: Comment on above: PATIENT NOT FASTINGP ERFORMED BY: JERONIMO [facility] Hkwvcw6242 [facility] [id number] MCHC (RBC) [Mass/Vol] 32.6 g/dL Normal 31.5-35.7 [facility]; [facility] Work Phone: Comment on above: PATIENT NOT FASTINGP ERFORMED BY: JERONIMO [facility] Ylfgts[address]87 [address] [facility]in [place] [id number] MCV (RBC) [Entitic vol] 93 fL Normal 79-97 [facility]; [facility] Work Phone: Comment on above: PATIENT NOT FASTINGP ERFORMED BY: JERONIMO LabDelio Betsiw3301 [address] [facility]in [place] [id number] Monocytes (Bld) [#/Vol] 0.5 {x10E3/uL} Normal 0.1-0.9 [facility]; [facility] Work Phone: Comment on above: PATIENT NOT FASTINGP ERFORMED BY: [facility] Frqyqr8031 [address] [facility]bl[facility] [place] [id number] Monocytes (Bld) [#/Vol] 0.5 10*3/uL Normal 0.1-0.9 [facility]; [facility] Work Phone: Comment on above: PATIENT NOT FASTINGP ERFORMED BY: JERONIMO Holcomb6370 [address] RoadDublin [place] [id number] Monocytes/100 WBC (Bld) 6 % Normal [facility]; [facility] Work Phone: Comment on above: PATIENT NOT FASTINGP ERFORMED BY: JERONIMO Holcomb6370 [address] RoadDublin [place] [id number] Neutrophils (Bld) [#/Vol] 5.4 {x10E3/uL} Normal 1.4-7.0 [facility]; [facility] Work Phone: Comment on above: PATIENT NOT FASTINGP ERFORMED BY: JERONIMO LabFawad Holcomb6[address] RoadDublin [place] [id number] Neutrophils (Bld) [#/Vol] 5.4 10*3/uL Normal 1.4-7.0 [facility]; [facility] Work Phone: Comment on above: PATIENT NOT FASTINGP ERFORMED BY: JERONIMO Holcomb6370 [address] RoadDublin [place] [id number] Neutrophils/100 WBC (Bld) 67 % Normal [facility]; [facility] Work Phone: Comment on above: PATIENT NOT FASTINGP ERFORMED BY: JERONIMO Holcomb6[address] RoadDublin [place] [id number] Platelets (Bld) [#/Vol] 326 {x10E3/uL} Normal 150-450 [facility]; [facility] Work Phone: Comment on above: PATIENT NOT FASTINGP ERFORMED BY: JERONIMO Holcomb6370 [address] RoadDublin [place] [id number] Platelets (Bld) [#/Vol] 326 10*3/uL Normal 150-450 [facility]; [facility] Work Phone: Comment on above: PATIENT NOT FASTINGP ERFORMED BY: JERONIMO Holcomb6370 [address] RoadDublin [place] [id number] RBC (Bld) [#/Vol] 4.11 {x10E6/uL} Normal 3.77-5.28 [facility]; [facility] Work Phone: Comment on above: PATIENT NOT FASTINGP ERFORMED BY: JERONIMO [facility] Ulfscu6989 [address] Roadbl[address] [place] [id number] RBC (Bld) [#/Vol] 4.11 10*6/uL Normal 3.77-5.28 [facility] e[facility]ive [facility]; [facility] Work Phone: Comment on above: PATIENT NOT FASTINGP ERFORMED BY: CB [facility] Kjjjnr1438 [address] RoadCannon [facility] Hospitalin [place] [id number] WBC (Bld) [#/Vol] 8.0 {x10E3/uL} Normal 3.4-10.8 [facility]; [facility] Work Phone: Comment on above: PATIENT NOT FASTINGP ERFORMED BY: JERONIMO [facility] Zpynez8151 [address] Roadbl[address] [place] [id number] WBC (Bld) [#/Vol] 8.0 10*3/uL Normal 3.4-10.8 [facility]; [facility] Work Phone: Comment on above: PATIENT NOT FASTINGP ERFORMED BY: JERONIMO [facility] Hfdjig[address] [facility]in [place] [id number] BRAULIO TEST, DIRECT ([id number])O rdered By: Registered Mail Clerk on 12-20-2020 Direct antiglobulin test.poly specific reagent Ql (RBC) Negative Normal [facility]; [facility] Work Phone: Comment on above: PATIENT NOT FASTINGP ERFORMED BY: CB [facility] Wdqryg2492 [address] [facility]in [place] [id number] Direct antiglobulin test.poly specific reagent Ql (RBC) Negative Normal [facility]; [facility] Work Phone: Comment on above: PATIENT NOT FASTINGP ERFORMED BY: JERONIMO [facility] Rltqxv6213 [address] [facility]bl[facility] [place] [id number] FERRITIN ([id number])Ordered By: Registered Mail Clerk on 12-20-2020 Ferritin [Mass/Vol] 31 ng/mL Normal 15-150 [facility]; [facility] Work Phone: Comment on above: PATIENT NOT FASTINGP ERFORMED BY: CB [facility] Ggvbvf7846 [address] RoadDublin [place] [id number] IRON BINDING CAPACITY (TIBC) ([id number])Ordered By: Registered Mail Clerk on 12-20-2020 Iron [Mass/Vol] 121 ug/dL Normal 27-[address] [facility]; [facility] Work Phone: Comment on above: PATIENT NOT FASTINGP ERFORMED BY: CB [facility] Dlpaqq5160 [address] RoadDublin [place] [id number] Iron binding capacity [Mass/Vol] 315 ug/dL Normal 250-450 [facility]; [facility] Work Phone: Comment on above: PATIENT NOT FASTINGP ERFORMED BY: CB [facility] Nlwner1294 [address] RoadDublin [place] [id number] Iron binding capacity.unsatura gilles [Mass/Vol] 194 ug/dL Normal 131-425 [facility]; [facility] Work Phone: Comment on above: PATIENT NOT FASTINGP ERFORMED BY: CB [facility] Lcdxhn0036 [address] RoadDublin [place] [id number] Iron saturation [Mass fraction] 38 % Normal 15-55 [facility]; [facility] Work Phone: Comment on above: PATIENT NOT FASTINGP ERFORMED BY: CB [facility] Hnxmhe0875 [address] RoadDublin [place] [id number] LDH (LD) (LACTATE DEHYDROGEN ASE) ([id number])Ordered By: Registered Mail Clerk on 12-20-2020 LDH [Catalytic activity/Vol] 155 [iU]/L Normal 119-226 [facility]; [facility] Work Phone: Comment on above: PATIENT NOT FASTINGP ERFORMED BY: CB [facility] Gmobcl5731 [address] RoadDublin [place] [id number] LDH [Catalytic activity/Vol] 155 U/L Normal 119-226 [facility]; [facility] Work Phone: Comment on above: PATIENT NOT FASTINGP ERFORMED BY: CB [facility] Lotqmq0332 [address] RoadDublin [place] [id number] RETICULOCYTE COUNT MANUL ([id number])Ordered By: Registered Mail Clerk on 12-20-2020 Reticulocytes/100 RBC (Bld) 1.3 % Normal 0.6-2.6 [facility]; [facility] Work Phone: Comment on above: PATIENT NOT FASTINGP ERFORMED BY: CB [facility] Obgrbb3033 [address] RoadDublin [place] [id number] SPEP ([id number])Ordered By: Syst em Garnetter on 12-20-2020 Albumin [Mass/Vol] 4.1 g/dL Normal 2.9-4.4 [facility]; [facility] Work Phone: Comment on above: PATIENT NOT FASTINGP ERFORMED BY: CB [facility] Wlpslu6558 [address] RoadDublin [place] [id number] Albumin/Globulin [Mass ratio] 1.3 {ratio} Normal 0.7-1.7 [facility]; [facility] Work Phone: Comment on above: PATIENT NOT FASTINGP ERFORMED BY: CB [facility] Jlrwpb7497 [address] RoadDublin [place] [id number] Alpha 1 globulin Elph [Mass/Vol] 0.2 g/dL Normal 0.0-0.4 [facility]; [facility] Work Phone: Comment on above: PATIENT NOT FASTINGP ERFORMED BY: CB [facility] Sidkrl4839 [address] RoadDublin [place] [id number] Alpha 2 globulin Elph [Mass/Vol] 0.7 g/dL Normal 0.4-1.0 [facility]; [facility] Work Phone: Comment on above: PATIENT NOT FASTINGP ERFORMED BY: CB [facility] Fcrwyf8591 [address] RoadDublin [place] [id number] Beta globulin Elph [Mass/Vol] 1.1 g/dL Normal 0.7-1.3 [facility]; [facility] Work Phone: Comment on above: PATIENT NOT FASTINGP ERFORMED BY: CB [facility] Yglqab4841 [address] RoadDublin [place] [id number] Gamma globulin Elph [Mass/Vol] 1.1 g/dL Normal 0.4-1.8 [facility]; [facility] Work Phone: Comment on above: PATIENT NOT FASTINGP ERFORMED BY: CB [facility] Fcjqil5463 [address] RoadDublin [place] [id number] Globulin (S) [Mass/Vol] 3.2 g/dL Normal 2.2-3.9 [facility]; [facility] Work Phone: Comment on above: PATIENT NOT FASTINGP ERFORMED BY: CB [facility] Weujxv5905 [address] RoadDublin [place] [id number] Laboratory comment Buster (Report) SPRCS Normal [facility]; [facility] Work Phone: Comment on above: Protein electrophore sis scan will follow via computer, mail, orcourier delivery. PATIENT NOT FASTINGP ERFORMED BY: CB [facility] Rbptjb3507 [address] RoadDublin [place] [id number] Laboratory report . Normal Compreh ensive [facility]; [facility] Work Phone: Comment on above: PATIENT NOT FASTINGP ERFORMED BY: CB [facility] Kezzsm0553 [address] RoadDublin [place] [id number] Protein [Mass/Vol] 7.3 g/dL Normal 6.0-8.5 [facility]; [facility] Work Phone: Comment on above: PATIENT NOT FASTINGP ERFORMED BY: CB [facility] Fjceeo4447 [address] RoadDublin [place] [id number] Protein.monoclona l Elph [Mass/Vol] Not Observed Normal [facility]; [facility] Work Phone: Comment on above: PATIENT NOT FASTINGP ERFORMED BY: CB [facility] Tedvly9394 [address] RoadDublin [place] [id number] UPEP ([id number])Ordered By: Syst em Garnetter on 12-20-2020 Albumin Elph (U) [Mass fraction] 33.4 % Normal [facility]; [facility] Work Phone: Comment on above: PATIENT NOT FASTINGP ERFORMED BY: CB [facility] Yxzzhk0481 [address] RoadDublin [place] [id number] Alpha 1 globulin Elph (U) [Mass fraction] 2.6 % Normal [facility]; [facility] Work Phone: Comment on above: PATIENT NOT FASTINGP ERFORMED BY: JERONIMO [facility] Phntav2780 [address] RoadDublin [place] [id number] Alpha 2 globulin Elph (U) [Mass fraction] 13.9 % Normal [facility]; [facility] Work Phone: Comment on above: PATIENT NOT FASTINGP ERFORMED BY: CB [facility] Pophhg6769 [address] RoadDublin [place] [id number] Beta globulin Elph (U) [Mass fraction] 34.1 % Normal [facility]; [facility] Work Phone: Comment on above: PATIENT NOT FASTINGP ERFORMED BY: JERONIMO [facility] Mapgfd1514 [address] RoadDublin [place] [id number] Gamma globulin Elph (U) [Mass fraction] 15.9 % Normal [facility]; [facility] Work Phone: Comment on above: PATIENT NOT FASTINGP ERFORMED BY: JERONIMO [facility] Jtypkn1869 [address] RoadDublin [place] [id number] Protein (U) [Mass/Vol] 15.3 mg/dL Normal [facility]; [facility] Work Phone: Comment on above: PATIENT NOT FASTINGP ERFORMED BY: [facility] Tizxgq3076 [address] RoadDublin [place] [id number] Protein.monoclona l Elph (U) [Mass fraction] Not Observed Normal [facility]; [facility] Work Phone: Comment on above: PATIENT NOT FASTINGP ERFORMED BY: [facility] Djhfii7855 [address] RoadDublin [place] [id number] VITAMIN B-12 (CYANOCOBALAMIN ) ([id number])Ordered By: Registered Mail Clerk on 12-20-2020 Cobalamin (Vitamin B12) [Mass/Vol] 431 pg/mL Normal 232-1245 [facility]; [facility] Work Phone: Comment on above: PATIENT NOT FASTINGP ERFORMED BY: JERONIMO [employer] Yyxvua2672 [facility] [id number] FSH AND LH ([id number])Ordered By : Registered Mail Clerk on 10-02-2019 Follitropin Qn 4.1 m[IU]/mL Normal [facility] Internal [facility] Work Phone: Comment on above: Adult Female: Follic ular phase 3.5 - 12.5 Ovulation phase 4.7 - 21.5 Luteal phase 1.7 - 7.7 Postmenopausal 25.8 - 134.8 PATIENT NOT FASTINGP ERFORMED BY: JERONIMO [facility] Zfjuni1351 [facility] [id number] Lutropin Qn 4.1 m[IU]/mL Normal [facility] Work Phone: Comment on above: Adult Female: Follic ular phase 2.4 - 12.6 Ovulation phase 14.0 - 95.6 Luteal phase 1.0 - 11.4 Postmenopausal 7.7 - 58.5 PATIENT NOT FASTINGP ERFORMED BY: JERONIMO LabPrime Wire MediaMountain View Regional Medical CenterHcjyjv6419 [facility] [id number] TSH (THYROID STIMULATING HOR MARI) ([id number])Ordered By: Registered Mail Clerk on 10-02-2019 TSH Qn 1.600 {uIU/mL} Normal 0.450-4.[address] [facility] Internal Medicine Work Phone: Comment on above: PATIENT NOT FASTINGP ERFORMED BY: [employer] [employer] Rqwntp4495 [facility] [id number] [facility] CRAB <0.10 Normal [facility] Internal Medicine Work Phone: Comment on above: Levels of Specific I gE Class Description of Class ----- < 0.10 0 Negative 0.10 - 0.31 0/I Equivocal/Low 0.32 - 0.55 I Low 0.56 - 1.40 II Moderate 1.41 - 3.90 III High 3.91 - 19.00 IV Very High 19.01 - 100.00 V Very High >100.00 Very HighPerformed at: [employer] [address] [id number] Director: Fritz Gamboa MD, Phone: [phone] Crab <0.10 Normal [facility] Work Phone: Comment on above: Levels of Specific I gE Class Description of Class ----- < 0.10 0 Negative 0.10 - 0.31 0/I Equivocal/Low 0.32 - 0.55 I Low 0.56 - 1.40 II Moderate 1.41 - 3.90 III High 3.91 - 19.00 IV Very High 19.01 - 100.00 V Very High >100.00 Very HighPerformed at: [employer] [address] [id number] Director: Fritz Gamboa MD, Phone: [phone] [facility] ComplexPrime [facility] (refer to [facility] for specific site)refer to report for address and phone number Allergen, Food Profileon PEANUT <0.10 Normal [facility] Work Phone: Comment on above: Performed at: [employer] [address] [id number] Director: Fritz Gamboa MD, Phone: [phone] RAST COMMENT Comment Normal [facility] Work Phone: Comment on above: Levels of Specific I gE Class Description of Class ----- < 0.10 0 Negative 0.10 - 0.31 0/I Equivocal/Low 0.32 - 0.55 I Low 0.56 - 1.40 II Moderate 1.41 - 3.90 III High 3.91 - 19.00 IV Very High 19.01 - 100.00 V Very High >100.00 Very High Allergen, Food Profile <0.10 Normal [facility] Work Phone: Comment on above: Performed at: [address] [id number] Director: Fritz Gamboa MD, Phone: [phone] [facility] (refer to re port for specific site)refer to report for address and phone number Allergen, Food Profile Comment Normal [facility] Work Phone: Comment on above: Levels of Specific I gE Class Description of Class ----- < 0.10 0 Negative 0.10 - 0.31 0/I Equivocal/Low 0.32 - 0.55 I Low 0.56 - 1.40 II Moderate 1.41 - 3.90 III High 3.91 - 19.00 IV Very High 19.01 - 100.00 V Very High >100.00 Very High [facility] (refer to re port for specific site)refer to report for address and phone number ENTERIC PATHOGEN PANEL STOOL on 06-13-2016 EP PANEL See Note Normal [facility] Work Phone: Comment on above: EP PANEL STOOLNot de tected for Campylobacter group, Salmonella species, Shigella species, Vibrio Group, Yersinia enterocolitica, EHEC (Shiga Toxin 1, Shiga Toxin 2), Norovirus Gl/Gll, and Rotavirus A. Other common stool pathogens are not detected on this panel include: Aeromonas/Plesiomonas or parasites. Order testing for these organisms separately if suspected. This is an amplified DNA test which makes it both specific and sensitive. CAMPYLOBACTER Not DetectedSalmonella Not DetectedShigella sp. Not DetectedShiga Toxin Not DetectedYersinia Not DetectedVIBRIO Not DetectedNorovirus Not DetectedRotavirus Not Detected ENTERIC PATHOGEN PANEL STOOL See Note Normal [facility] Work Phone: Comment on above: EP PANEL STOOLNot de tected for Campylobacter group, Salmonella species, Shigella species, Vibrio Group, Yersinia enterocolitica, EHEC (Shiga Toxin 1, Shiga Toxin 2), Norovirus Gl/Gll, and Rotavirus A. Other common stool pathogens are not detected on this panel include: Aeromonas/Plesiomonas or parasites. Order testing for these organisms separately if suspected. This is an amplified DNA test which makes it both specific and sensitive. CAMPYLOBACTER Not DetectedSalmonella Not DetectedShigella sp. Not DetectedShiga Toxin Not DetectedYersinia Not DetectedVIBRIO Not DetectedNorovirus Not DetectedRotavirus Not Detected [facility] [address] [place], [place], [address] Stool Lactoferrin/WBCon - Lactoferrin IA Ql (St) See Note Normal [facility] Work Phone: Comment on above: Stool Lacto/WBCFecal WBC Lactoferrin Negative: No Fecal WBC Lactoferrin present [facility] [address] [place], [place], [id number] ENTERIC PATHOGEN PANEL STOOL on 05-07-2016 EP PANEL See Note Normal [facility] Work Phone: Comment on above: Results called on by ED to [phone].EP PANEL STOOLSalmonella species detected. Susceptibility testing not routinely performed but can be completed at the request by the ordering physician. Treatment is often not needed in many cases. This is an amplified DNA test which makes it both specific and sensitive. RESULTS CALLED TO DR.D ALBRECHT 05/07/16 1357 Shantal Smith. REPORT READ BACK BY SAME. Copy of report sent to Infection Control Printer [id number] 05/07/16 Reyna WARD. Isolate sent to [facility] for confirmatory testing. CAMPYLOBACTER Not DetectedSalmonella Salmonella sp. DetectedShigella sp. Not DetectedShiga Toxin Not DetectedYersinia Not DetectedVIBRIO Not DetectedNorovirus Not DetectedRotavirus Not Detected ORGANISM 1: Salmonella ser. Enteritidis ENTERIC PATHOGEN PANEL STOOL See Note Normal [facility] Work Phone: Comment on above: Results called on by ED to [phone].EP PANEL STOOLSalmonella species detected. Susceptibility testing not routinely performed but can be completed at the request by the ordering physician. Treatment is often not needed in many cases. This is an amplified DNA test which makes it both specific and sensitive. RESULTS CALLED TO DR.D ALBRECHT 05/07/16 1546 Shantal Rosarioshahram. REPORT READ BACK BY SAME. Copy of report sent to Infection Control Printer [id number] 05/07/16 1992 ED. Isolate sent to [facility] for confirmatory testing. CAMPYLOBACTER Not DetectedSalmonella Salmonella sp. DetectedShigella sp. Not DetectedShiga Toxin Not DetectedYersinia Not DetectedVIBRIO Not DetectedNorovirus Not DetectedRotavirus Not Detected ORGANISM 1: Salmonella ser. Enteritidis [facility] [address] [place], [address] CDIFF (Molecular)on 04-23-20 C. difficile DNA SHILO+probe Ql (Unsp spec) See Note Normal [facility] Work Phone: Comment on above: Cdiff-MolecularC. Di ff DNA Negative- No toxigenic C. Diff DNA Detected [facility] Deoglwesbq5076 [facility] [place], [address] ENTERIC PATHOGEN PANEL STOOL on 04-23-2016 EP PANEL See Note Normal [facility] Work Phone: Comment on above: EP PANEL STOOLRESULT S CALLED TO DR. MONROE 04/24/16 1211 Aleisha Yuan. REPORT READ BACK BY SAME. Identification Salmonella Enteritidis Comment: Serogrouping was performed for epidemiologic purposes only.These results must not be used for assessment, diagnosis or treatment of patients. TESTING PERFORMED AT [facility]. ORIGINAL REPORT ON FILE IN LAB CONTAINS ADDITIONAL TEST SITE INFORMATION. Copy of report sent to Infection Control Printer [id number] 05/02/[address] [facility]. CAMPYLOBACTER Not DetectedSalmonella Salmonella sp. DetectedShigella sp. Not DetectedShiga Toxin Not DetectedYersinia Not DetectedVIBRIO Not DetectedNorovirus Not DetectedRotavirus Not Detected ORGANISM 1: Salmonella ser. Enteritidis ENTERIC PATHOGEN PANEL STOOL See Note Normal [facility] Work Phone: Comment on above: EP PANEL STOOLRESULT S CALLED TO DR. MONROE 04/24/16 1211 Aleisha Yuan. REPORT READ BACK BY SAME. Identification Salmonella Enteritidis Comment: Serogrouping was performed for epidemiologic purposes only.These results must not be used for assessment, diagnosis or treatment of patients. TESTING PERFORMED AT [facility]. ORIGINAL REPORT ON FILE IN LAB CONTAINS ADDITIONAL TEST SITE INFORMATION. Copy of report sent to Infection Control Printer [id number] 05/02/[address] [facility]. CAMPYLOBACTER Not DetectedSalmonella Salmonella sp. DetectedShigella sp. Not DetectedShiga Toxin Not DetectedYersinia Not DetectedVIBRIO Not DetectedNorovirus Not DetectedRotavirus Not Detected ORGANISM 1: Salmonella ser. Enteritidis RESULTING FROM LABCO RP O + P 8623OVA AND PARASITES EXAM, ROUTINE These results were obtained using wet preparation(s) and trichrome stained smear. This test does not include testing for Crytosporidium parvum, Cyclospora, or Microsporidia. TESTING PERFORMED AT [facility]. ORIGINAL REPORT ON FILE IN LAB CONTAINS ADDITIONAL TEST SITE INFORMATION. Ova/Parasite Exam NO OVA, CYSTS, OR PARASITES FOUND. [facility] [place] [address] [place], [address] Ova and Parasites 8623on OP See Note Normal [facility] Work Phone: Comment on above: RESULTING FROM LABCO RP O + P 8623OVA AND PARASITES EXAM, ROUTINE These results were obtained using wet preparation(s) and trichrome stained smear. This test does not include testing for Crytosporidium parvum, Cyclospora, or Microsporidia. [facility] ORIGINAL REPORT ON FILE IN LAB CONTAINS ADDITIONAL TEST SITE INFORMATION. Ova/Parasite Exam NO OVA, CYSTS, OR PARASITES FOUND. CBC W/Diff, Automatedon - Absolute Lymph 0.94 {X10_3/ul} Normal 0.83-4.51 Compr ehensive Internal Medicine Work Phone: Absolute Neut 5.7 {X10_3/uL} Normal 2.0-7.7 Compreh ensive Internal Medicine Work Phone: Comment on above: [facility] [address] [place], [place], [phone] BAND 17 % Abnormal 0-5 [facility] Work Phone: Basophils/100 WBC (Bld) 0.1 % Normal 0-1 [facility] Work Phone: Comment on above: [facility] [address] [place], [phone] Basophils/100 WBC Auto (Bld) 0.1 % Normal 0-1 [facility] Work Phone: CELLS COUNTED 100 1 Normal Comprehensi ve Internal Medicine Work Phone: Eosinophils/100 WBC (Bld) 0.6 % Normal 0-5 [facility] Work Phone: Comment on above: [facility] [address] [place], [address] Eosinophils/100 WBC (Bld) 1 % Normal 0-5 [facility] Work Phone: Comment on above: [facility] [address] [place], [address] Eosinophils/100 WBC Auto (Bld) 0.6 % Normal 0-5 [facility] Work Phone: Eosinophils/100 WBC Auto (Bld) 1 % Normal 0-5 [facility] Work Phone: Erythrocyte distribution width Auto Ratio (RBC) 12.5 % Normal 11.6-14.6 [facility] Work Phone: Erythrocyte distribution width Ratio (RBC) 12.5 % Normal 11.6-14.6 [facility] Work Phone: Comment on above: [place] [address] [place], [address] Hematocrit Auto Volume Fraction (Bld) 39.3 % Normal 37-47 [facility] Work Phone: Hematocrit Volume Fraction (Bld) 39.3 % Normal 37-47 [facility] Work Phone: Comment on above: [place] [address] [place], [address] Hemoglobin mass conc (Bld) 13.3 g/dL Normal 12.0-15.0 [facility] Work Phone: Comment on above: [place] [address] [place], [address] IM GRAN % 0.300 % Normal 0.0-0.9 [facility] Work Phone: Comment on above: IG% - Immature Granu locytes (promyelocytes, myelocytes andmetamyelocytes) > 1% indicates that a LEFT SHIFT is Present. [place] [address] [place], [address] Lymphocytes #/vol (Bld) 0.94 {X10_3/ul} Normal 0.83-4.51 [facility] Work Phone: Comment on above: [facility] [address] [place], [address] Lymphocytes/100 WBC (Bld) 10 % Abnormal 19-41 [facility] Work Phone: Comment on above: [facility] [address] [place], [address] Lymphocytes/100 WBC (Bld) 13.5 % Abnormal 19-41 [facility] Work Phone: Comment on above: [facility] [address] [place], [address] Lymphocytes/100 WBC Auto (Bld) 10 % Abnormal -41 [facility] Work Phone: Lymphocytes/100 WBC Auto (Bld) 13.5 % Abnormal 19-41 [facility] Work Phone: MCH Auto Entitic mass (RBC) 30.4 pg Normal 27.0-32.0 [facility] Work Phone: MCH Entitic mass (RBC) 30.4 pg Normal 27.0-32.0 [facility] Work Phone: Comment on above: [facility] [address] [place], [address] MCHC Auto mass conc (RBC) 33.8 {g/gl} Normal 32-36 [facility] Work Phone: MCHC mass conc (RBC) 33.8 {g/gl} Normal 32-36 [facility] Work Phone: Comment on above: [facility] [address] [place], [address] MCV Auto Entitic volume (RBC) 89.9 fL Normal 81-99 [facility] Work Phone: MCV Entitic volume (RBC) 89.9 fL Normal 81-99 [facility] Work Phone: Comment on above: [facility] [address] [place], [address] META 5 % Abnormal 0-1 [facility] Work Phone: Monocytes/100 WBC (Bld) 3 % Normal 0-10 [facility] Work Phone: Comment on above: [facility] [address] [place], [address] Monocytes/100 WBC Auto (Bld) 4.0 % Normal 0-10 [facility] Work Phone: Comment on above: [facility] [address] [place], [address] Monocytes/100 WBC Auto (Bld) 3 % Normal 0-10 [facility] Work Phone: Monocytes/100 WBC Auto (Bld) 4.0 % Normal 0-10 [facility] Work Phone: Neutrophils/100 WBC (Bld) 81.5 % Abnormal 47-70 [facility] Work Phone: Comment on above: [facility] [address] [place], [address] Neutrophils/100 WBC Auto (Bld) 81.5 % Abnormal 47-70 [facility] Work Phone: PATH REV May foll Normal [facility] Work Phone: Platelet mean volume Auto Entitic volume (Bld) 10.3 fL Normal 6.2-12.0 [facility] Work Phone: Platelet mean volume Entitic volume (Bld) 10.3 fL Normal 6.2-12.0 [facility] Work Phone: Comment on above: [facility] [address] [place], [address] Platelets #/vol (Bld) 236 10*3/uL Normal 150-450 [facility] Work Phone: Comment on above: [facility] [address] [place], [address] Platelets #/vol (Bld) ADEQUATE Normal [facility] Work Phone: Comment on above: [facility] [address] [place], [address] Platelets Auto #/vol (Bld) 236 10*3/uL Normal 150-450 [facility] Work Phone: PLT EST ADEQUATE Normal [facility] Work Phone: RBC #/vol (Bld) 4.37 {M/mm3} Normal 4.2-5.4 Compreh ensive Internal Medicine Work Phone: Comment on above: [place] [address] [place], [address] RBC Auto #/vol (Bld) 4.37 {M/mm3} Normal 4.2-5.4 [facility] Work Phone: RDW SD 40.2 fL Normal 35.1-43.9 [facility] Work Phone: Comment on above: [facility] [address] [place], [address] RED CELL MORPH NORM C+C Normal Comprehens eden [facility] Work Phone: SEGS 64 % Normal 47-70 [facility] Work Phone: WBC #/vol (Bld) 7.0 10*3/uL Normal 4.4-11.0 Comprehe nsive Internal Medicine Work Phone: Comment on above: [facility] [address] [place], [address] WBC Auto #/vol (Bld) 7.0 10*3/uL Normal 4.4-11.0 [facility] Work Phone: CBC W/Diff, Automated 40.2 fL Normal 35.1-43.9 [facility] Work Phone: CBC W/Diff, Automated 100 1 Normal [facility] Work Phone: Comment on above: [facility] [address] [place], [address] CBC W/Diff, Automated 0.300 % Normal 0.0-0.9 [facility] Work Phone: Comment on above: IG% - Immature Granu locytes (promyelocytes, myelocytes andmetamyelocytes) > 1% indicates that a LEFT SHIFT is Present. CBC W/Diff, Automated 5.7 {X10_3/uL} Normal 2.0-7.7 [facility] Work Phone: CBC W/Diff, Automated 0.94 {X10_3/ul} Normal 0.83-4.51 [facility] Work Phone: CBC W/Diff, Automated 64 % Normal 47-70 [facility] Work Phone: Comment on above: [place] [address] [place], [address] CBC W/Diff, Automated 17 % Abnormal 0-5 [facility] Work Phone: Comment on above: [place] [address] [place], [address] CBC W/Diff, Automated 5 % Abnormal 0-1 [facility] Work Phone: Comment on above: [place] [address] [place], [address] CBC W/Diff, Automated ADEQUATE Normal [facility] Work Phone: CBC W/Diff, Automated NORM C+C Normal [facility] Work Phone: Comment on above: [facility] [address] [place], [address] CBC W/Diff, Automated May foll Normal [facility] Work Phone: Comment on above: [facility] [address] [place], [place], [address] Comprehensive Met[facility] Prof charles 04-12-2016 Comprehensive metabolic 2000 panel 26 U/L Normal 15-37 [facility] Work Phone: Comment on above: 'TROP' Serial specim en #1, #2, #3, or #4: [address] [place] [address] [place], [place], [phone] Comprehensive [facility] 2000 panel 9.3 mg/dL Normal 8.5-10.1 [facility] Work Phone: Comment on above: 'TROP' Serial specim en #1, #2, #3, or #4: [address] [place] [address] [place], [place], [phone] Comprehensive [facility] 2000 panel 0.8 {RATIO} Abnormal 0.9-2.4 [facility] Work Phone: Comment on above: 'TROP' Serial specim en #1, #2, #3, or #4: [address] [place] [address] [place], [place], [phone] Comprehensive [facility] 2000 panel 4.5 g/dL Abnormal 2.3-3.5 [facility] Work Phone: Comment on above: 'TROP' Serial specim en #1, #2, #3, or #4: [address] [place] [address] [place], [place], [phone] Comprehensive metabolic 2000 panel 62 U/L Normal 50-136 [facility] Work Phone: Comment on above: 'TROP' Serial specim en #1, #2, #3, or #4: [address] [place] [address] [place], [place], [phone] Comprehensive [facility] 2000 panel 3.8 g/dL Normal 3.4-5.0 [facility] Work Phone: Comment on above: 'TROP' Serial specim en #1, #2, #3, or #4: [facility] [address] [place], [place], [phone] Comprehensive metabolic 2000 panel 8.3 g/dL Abnormal 6.4-8.2 [facility] Work Phone: Comment on above: 'TROP' Serial specim en #1, #2, #3, or #4: [address] [place] [address] [place], [place], [phone] [facility] 2000 panel 11.1 {RATIO} Normal 10-20 [facility] Work Phone: Comment on above: 'TROP' Serial specim en #1, #2, #3, or #4: [address] [place] [address] [place], [place], [phone] Comprehensive [facility] 2000 panel 74.25 ml/min Normal [facility] Work Phone: Comment on above: 'TROP' Serial specim en #1, #2, #3, or #4: [address] [place] [address] [place], [place], [phone] [facility] 2000 panel 102 mmol/L Normal 98-107 [facility] Work Phone: Comment on above: 'TROP' Serial specim en #1, #2, #3, or #4: [address] [place] [address] [place], [place], [phone] [facility] 2000 panel 24.0 mmol/L Normal 21.0-32.0 [facility] Work Phone: Comment on above: 'TROP' Serial specim en #1, #2, #3, or #4: [address] [place] [address] [place], [place], [phone] Comprehensive [facility] 2000 panel 9 1 Normal 5-15 [facility] Work Phone: Comment on above: 'TROP' Serial specim en #1, #2, #3, or #4: [address] [place] [address] [place], [place], [phone] [facility] 2000 panel 82 mL/min Normal [facility] Work Phone: Comment on above: GFR Calc 'TROP' Serial specim en #1, #2, #3, or #4: [address] [place] [address] [place], [place], [phone] [facility] 2000 panel 25 U/L Normal 12-78 [facility] Work Phone: Comment on above: 'TROP' Serial specim en #1, #2, #3, or #4: [address] [place] [address] [place], [place], [phone] [facility] 2000 panel 0.40 mg/dL Normal 0.20-1.00 [facility] Work Phone: Comment on above: 'TROP' Serial specim en #1, #2, #3, or #4: [address] [place] [address] [place], [place], [address] [facility] 2000 panel 135 mmol/L Abnormal 136-145 [facility] Work Phone: Comment on above: 'TROP' Serial specim en #1, #2, #3, or #4: [address] [place] [address] [place], [place], [address] [facility] 2000 panel 3.1 mmol/L Abnormal 3.5-5.1 [facility] Work Phone: Comment on above: 'TROP' Serial specim en #1, #2, #3, or #4: [address] [place] [address] [place], [address] Comprehensive [facility] 2000 panel 68 mL/min Normal [facility] Work Phone: Comment on above: Non- GFR Calc 'TROP' Serial specim en #1, #2, #3, or #4: [address] [place] [address] [place], [place], [phone] [facility] 2000 panel 0.99 mg/dL Normal 0.55-1.20 [facility] Work Phone: Comment on above: The validity of the calculated GFR AND GFRAA in patients over70 years has not been determined. Clinical correlation isessential. 'TROP' Serial specim en #1, #2, #3, or #4: [address] [place] [address] [place], [place], [phone] [facility] 2000 panel 11 mg/dL Normal 7-18 [facility] Work Phone: Comment on above: 'TROP' Serial specim en #1, #2, #3, or #4: [address] [place] [address] [place], [address] Comprehensive metabolic 2000 panel 115 mg/dL Abnormal 70-110 [facility] Work Phone: Comment on above: Fasting Glucose resu lt from 110 to <126 mg/dLsuggests IMPAIRED HOMEOSTASIS per A.D.A. criteria. 'TROP' Serial specim en #1, #2, #3, or #4: [address] [place] [address] [place], [place], [phone] Lipaseon 04-12-2016 Lipase enzyme act/vol 222 U/L Normal 73-393 [facility] Work Phone: Comment on above: 'TROP' Serial specim en #1, #2, #3, or #4: [address] [place] [address] [place], [place], [phone] ,Serum,hCG Quali.on 04-12-2016 HCG Qual triggr < 1 Normal Comprehen [facility] Work Phone: HCGSQUAL Negative Normal 0-9 Nonpreg [facility] Work Phone: ,Serum,h CG Quali. < 1 Normal [facility] Work Phone: Comment on above: [facility] [address] [place], [place], [address] ,Serum,h CG Quali. Negative Normal 0-9 Nonpreg [facility] Work Phone: Comment on above: [facility] [address] [place], [id number] Troponin-Ion 04-12-2016 Troponin I.cardiac mass conc ng/mL Normal [facility] Work Phone: Comment on above: TROPONIN-I EXPECTED VALUES <0.05 NEGATIVE 0.06 - 0.59 AT RISK OF ND > OR = 0.60 SUGGEST ND 'TROP' Serial specim en #1, #2, #3, or #4: [address] [place] [address] [address] [place], [phone] Urinalysis, Completeon 04-12 BACTERIA 2+ Normal [facility] Work Phone: Comment on above: Order Date: 04/12/16 COLOR OF URINE MAY AFFECT DIPSTICK RESULTS.How was Urine Obtained? [facility] [address] [place], [place], [phone] BILIRUBIN URINE 1 mg/dL Abnormal Comprehen [facility] Work Phone: Comment on above: COLOR OF URINE MAY A FFECT DIPSTICK RESULTS. Order Date: 04/12/16 COLOR OF URINE MAY AFFECT DIPSTICK RESULTS.How was Urine Obtained? [facility] [address] [place], [place], [address] CLARITY Sl. Cloudy Normal [facility] Work Phone: Comment on above: Order Date: 04/12/16 COLOR OF URINE MAY AFFECT DIPSTICK RESULTS.How was Urine Obtained? [facility] [address] [place], [place], [phone] COLOR Denisha Normal [facility] Work Phone: Comment on above: Order Date: 04/12/16 COLOR OF URINE MAY AFFECT DIPSTICK RESULTS.How was Urine Obtained? [facility] [address] [place], [place], [phone](721) GLUCOSE, UR Normal Normal [facility] Work Phone: Comment on above: Order Date: 04/12/16 COLOR OF URINE MAY AFFECT DIPSTICK RESULTS.How was Urine Obtained? [facility] [address] [place], [phone](982) KETONE UR 50 mg/dL Abnormal [facility] Work Phone: Comment on above: Order Date: 04/12/16 COLOR OF URINE MAY AFFECT DIPSTICK RESULTS.How was Urine Obtained? [facility] [address] [place], [address] LEUK ESTERASE 500 /ul Abnormal Comprehensi ve Internal Medicine Work Phone: Comment on above: Order Date: 04/12/16 COLOR OF URINE MAY AFFECT DIPSTICK RESULTS.How was Urine Obtained? [facility] [address] [place], [place], [phone](811) MUCUS, URINE 1+ Normal Comprehensiv e Internal Medicine Work Phone: Comment on above: Order Date: 04/12/16 COLOR OF URINE MAY AFFECT DIPSTICK RESULTS.How was Urine Obtained? [facility] [address] [place], [place], [phone](185) NITRITE UR Positive Abnormal [facility] Work Phone: Comment on above: Order Date: 04/12/16 COLOR OF URINE MAY AFFECT DIPSTICK RESULTS.How was Urine Obtained? [facility] [address] [place], [place], [phone](668) OCCULT BLOOD-UR 150 /ul Abnormal Comprehen sive Internal Medicine Work Phone: Comment on above: Order Date: 04/12/16 COLOR OF URINE MAY AFFECT DIPSTICK RESULTS.How was Urine Obtained? [facility] [address] [place], [place], [phone] pH UR 6.5 1 Normal 5.0 - 8.0 [facility] Work Phone: Comment on above: Order Date: 04/12/16 COLOR OF URINE MAY AFFECT DIPSTICK RESULTS.How was Urine Obtained? [facility] [address] [place], [phone] PROT DIPSTX 30 mg/dL Abnormal [facility] Work Phone: Protein mass conc (U) 30 mg/dL Abnormal [facility] Work Phone: Comment on above: Order Date: 04/12/16 COLOR OF URINE MAY AFFECT DIPSTICK RESULTS.How was Urine Obtained? [facility] [address] [place], [phone] RBC #/vol (U) 10-25 SEEN Normal 0-5 Comprehensi Internal Medicine Work Phone: Comment on above: Order Date: 04/12/16 COLOR OF URINE MAY AFFECT DIPSTICK RESULTS.How was Urine Obtained? [facility] [address] [place], [phone] RBC Test strip #/vol (U) 10-25 SEEN Normal 0-5 [facility] Work Phone: SP.GR. DIPSTX 1.020 1 Normal 1.002-1.030 Comprehens [place] [facility] Work Phone: Comment on above: Order Date: 04/12/16 COLOR OF URINE MAY AFFECT DIPSTICK RESULTS.How was Urine Obtained? [facility] [address] [place], [phone] SQUAM EPI 5-10 SEEN Normal 5-10 [facility] Work Phone: Comment on above: Order Date: 04/12/16 COLOR OF URINE MAY AFFECT DIPSTICK RESULTS.How was Urine Obtained? [facility] [address] [place], [phone] WBC 25-50 SEEN Normal 0-5 [facility] Work Phone: Comment on above: Order Date: 04/12/16 COLOR OF URINE MAY AFFECT DIPSTICK RESULTS.How was Urine Obtained? [facility] [address] [place], [place], [address] Basic Metabolic Profile (BMP )on 04-10-2016 Basic metabolic 2000 panel 15 mg/dL Normal 7-18 [facility] Work Phone: Comment on above: [facility] [address] [place], [place], [phone] Basic metabolic 2000 panel 128 mg/dL Abnormal 70-110 [facility] Work Phone: Comment on above: Fasting Glucose resu lt greater than or equal to 126 mg/dLsuggests DIABETES MELLITUS per A.D.A. criteria. [facility] [address] [place], [place], [phone] Basic metabolic 2000 panel 15.1 {RATIO} Normal 10-20 [facility] Work Phone: Comment on above: [facility] [address] [place], [place], [phone] Basic metabolic 2000 panel 0.99 mg/dL Normal 0.55-1.20 [facility] Work Phone: Comment on above: The validity of the calculated GFR AND GFRAA in patients over70 years has not been determined. Clinical correlation isessential. [facility] [address] [place], [place], [phone] Basic metabolic 2000 panel 68 mL/min Normal [facility] Work Phone: Comment on above: Non- GFR Calc [facility] [facility] [address] [place], [place], [id number] Basic metabolic 2000 panel 82 mL/min Normal [facility] Work Phone: Comment on above: GFR Calc [facility] [address] [place], [place], [phone] Basic metabolic 2000 panel 73.83 ml/min Normal [facility] Work Phone: Comment on above: [facility] [address] [place], [place], [address] Basic metabolic 2000 panel 6 1 Normal 5-15 [facility] Work Phone: Comment on above: [facility] [address] [place], [place], [address] Basic metabolic 2000 panel 8.6 mg/dL Normal 8.5-10.1 [facility] Work Phone: Comment on above: [facility] [address] [place], [place], [address] Basic metabolic 2000 panel 135 mmol/L Abnormal 136-145 [facility] Work Phone: Comment on above: [facility] [address] [place], [place], [address] Basic metabolic 2000 panel 3.4 mmol/L Abnormal 3.5-5.1 [facility] Work Phone: Comment on above: [facility] [address] [place], [place], [address] Basic metabolic 2000 panel 105 mmol/L Normal 98-107 [facility] Work Phone: Comment on above: [facility] [address] [place], [place], [address] Basic metabolic 2000 panel 24.0 mmol/L Normal 21.0-32.0 [facility] Work Phone: Comment on above: [facility] [address] [place], [place], [phone] CBC W/Diff, Automatedon 05-1 0-2015 Absolute Lymph 0.71 {X10_3/ul} Abnormal 0.83-4.51 Compr ensive Internal Medicine Work Phone: Absolute Neut 13.3 {X10_3/uL} Abnormal 2.0-7.7 Compre [facility] Internal [facility] Work Phone: Comment on above: [facility] [address] [place], [address] Basophils/100 WBC (Bld) 0.0 % Normal 0-1 [facility] Work Phone: Comment on above: [facility] [address] [place], [address] Basophils/100 WBC Auto (Bld) 0.0 % Normal 0-1 [facility] Work Phone: Eosinophils/100 WBC (Bld) 0.0 % Normal 0-5 [facility] Work Phone: Comment on above: [facility] [address] [place], [address] Eosinophils/100 WBC Auto (Bld) 0.0 % Normal 0-5 [facility] Work Phone: Erythrocyte distribution width Auto Ratio (RBC) 12.4 % Normal 11.6-14.6 [facility] Work Phone: Erythrocyte distribution width Ratio (RBC) 12.4 % Normal 11.6-14.6 [facility] Work Phone: Comment on above: [facility] [address] [place], [address] Hematocrit Auto Volume Fraction (Bld) 31.7 % Abnormal 37-47 [facility] Work Phone: Hematocrit Volume Fraction (Bld) 31.7 % Abnormal 37-47 [facility] Work Phone: Comment on above: [facility] [address] [place], [address] Hemoglobin mass conc (Bld) 10.8 g/dL Abnormal 12.0-15.0 [facility] Work Phone: Comment on above: [facility] [address] [place], [address] IM GRAN % 0.200 % Normal 0.0-0.9 [facility] Work Phone: Comment on above: IG% - Immature Granu locytes (promyelocytes, myelocytes andmetamyelocytes) > 1% indicates that a LEFT SHIFT is Present. [facility] [address] [place], [place], [phone] Lymphocytes #/vol (Bld) 0.71 {X10_3/ul} Abnormal 0.83-4.51 [facility] Work Phone: Comment on above: [facility] [address] [place], [address] Lymphocytes/100 WBC (Bld) 4.9 % Abnormal 19-41 [facility] Work Phone: Comment on above: [facility] [address] [place], [phone] Lymphocytes/100 WBC Auto (Bld) 4.9 % Abnormal -41 [facility] Work Phone: MCH Auto Entitic mass (RBC) 31.2 pg Normal 27.0-32.0 [facility] Work Phone: MCH Entitic mass (RBC) 31.2 pg Normal 27.0-32.0 [facility] Work Phone: Comment on above: [facility] [address] [place], [place], [phone] MCHC Auto mass conc (RBC) 34.1 {g/gl} Normal 32-36 [facility] Work Phone: MCHC mass conc (RBC) 34.1 {g/gl} Normal 32-36 [facility] Work Phone: Comment on above: [facility] [address] [place], [place], [phone] MCV Auto Entitic volume (RBC) 91.6 fL Normal 81-99 [facility] Work Phone: MCV Entitic volume (RBC) 91.6 fL Normal 81-99 [facility] Work Phone: Comment on above: [facility] [address] [place], [address] Monocytes/100 WBC Auto (Bld) 2.5 % Normal 0-10 [facility] Work Phone: Comment on above: [facility] [address] [place], [address] Monocytes/100 WBC Auto (Bld) 2.5 % Normal 0-10 [facility] Work Phone: Neutrophils/100 WBC (Bld) 92.4 % Abnormal 47-70 [facility] Work Phone: Comment on above: [facility] [address] [place], [address] Neutrophils/100 WBC Auto (Bld) 92.4 % Abnormal 47-70 [facility] Work Phone: Platelet mean volume Auto Entitic volume (Bld) 10.0 fL Normal 6.2-12.0 [facility] Work Phone: Platelet mean volume Entitic volume (Bld) 10.0 fL Normal 6.2-12.0 [facility] Work Phone: Comment on above: [facility] [address] [place], [address] Platelets #/vol (Bld) 212 10*3/uL Normal 150-450 [facility] Work Phone: Comment on above: [facility] [address] [place], [address] Platelets Auto #/vol (Bld) 212 10*3/uL Normal 150-450 [facility] Work Phone: RBC #/vol (Bld) 3.46 {M/mm3} Abnormal 4.2-5.4 Compreh ensive Internal Medicine Work Phone: Comment on above: [facility] [address] [place], [place], [phone] RBC Auto #/vol (Bld) 3.46 {M/mm3} Abnormal 4.2-5.4 [facility] Work Phone: RDW SD 40.4 fL Normal 35.1-43.9 [facility] Work Phone: Comment on above: [facility] [address] [place], [place], [phone] SMEAR COMMENT SCANNED Normal Comprehensi Internal Medicine Work Phone: WBC #/vol (Bld) 14.4 10*3/uL Abnormal 4.4-11.0 Compreh ensive Internal Medicine Work Phone: Comment on above: [facility] [address] [place], [address] WBC Auto #/vol (Bld) 14.4 10*3/uL Abnormal 4.4-11.0 [facility] Work Phone: CBC W/Diff, Automated SCANNED Normal [facility] Work Phone: Comment on above: [facility] [address] [place], [address] CBC W/Diff, Automated 40.4 fL Normal 35.1-43.9 [facility] Work Phone: CBC W/Diff, Automated 0.200 % Normal 0.0-0.9 [facility] Work Phone: Comment on above: IG% - Immature Granu locytes (promyelocytes, myelocytes andmetamyelocytes) > 1% indicates that a LEFT SHIFT is Present. CBC W/Diff, Automated 13.3 {X10_3/uL} Abnormal 2.0-7.7 [facility] Work Phone: CBC W/Diff, Automated 0.71 {X10_3/ul} Abnormal 0.83-4.51 [facility] Work Phone: ,Serum,hCG Quali.on 04-10-2016 HCG Qual triggr < 1 Normal Comprehen sive Internal Medicine Work Phone: HCGSQUAL Negative Normal 0-9 Nonpreg [facility] Work Phone: ,Serum,h CG Quali. < 1 Normal [facility] Work Phone: Comment on above: [facility] [address] [place], [place], [phone] ,Serum,h CG Quali. Negative Normal 0-9 Nonpreg [facility] Work Phone: Comment on above: [facility] [address] [place], [place], [phone] PARTHA (ANTINUCLEAR ANTIBODY) ( 18437)on 02-15-2016 Nuclear Ab Ql (S) Negative Normal Compreh ensive Internal Medicine Work Phone: Comment on above: PATIENT NOT FASTINGP ERFORMED BY: CB [facility] Yekaar[address] Road[address] [place] [id number] PARTHA (ANTINUCLEAR ANTIBODY) ( [id number])Ordered By: Registered Mail Clerk on 02-15-2016 Nuclear Ab Ql (S) Negative Normal Compreh ensive Internal Medicine; [facility] Work Phone: Comment on above: PATIENT NOT FASTINGP ERFORMED BY: JERONIMO [facility] Ouuwip56[address] RoadDublin [place] [id number] C-REACTIVE PROTEIN ([id number])Or dered By: Registered Mail Clerk on 02-15-2016 CRP [Mass/Vol] mg/L Normal 0.0-4.9 Comprehens [place] Internal Medicine; [facility] Work Phone: Comment on above: PATIENT NOT FASTINGP ERFORMED BY: CB [facility] Mgrotg5327 [address] RoadDublin [place] [id number] C-REACTIVE PROTEIN (67248)on 02-15-2016 CRP mass conc mg/L Normal 0.0-4.9 Comprehensi ve Internal Medicine Work Phone: Comment on above: PATIENT NOT FASTINGP ERFORMED BY: CB [facility] Nnpoog99[address] [place] [id number] CBC (AUTO) (96134)on 016 Erythrocyte distribution width Auto Ratio (RBC) 13.1 % Normal 12.3-15.4 [facility] Work Phone: Erythrocyte distribution width Ratio (RBC) 13.1 % Normal 12.3-15.4 [facility] Work Phone: Comment on above: PATIENT NOT FASTINGP ERFORMED BY: JERONIMO [facility] Sqakug8184 [facility] [id number] Hematocrit Auto Volume Fraction (Bld) 36.8 % Normal 34.0-46.6 [facility] Work Phone: Hematocrit Volume Fraction (Bld) 36.8 % Normal 34.0-46.6 [facility] Work Phone: Comment on above: PATIENT NOT FASTINGP ERFORMED BY: JERONIMO [employer] Mbsqlg5386 [facility] [id number] Hemoglobin mass conc (Bld) 12.5 g/dL Normal 11.1-15.9 [facility] Work Phone: Comment on above: PATIENT NOT FASTINGP ERFORMED BY: Breezeplay [facility] Qejnmh9678 [facility] [id number] MCH Auto Entitic mass (RBC) 30.6 pg Normal 26.6-33.0 [facility] Work Phone: MCH Entitic mass (RBC) 30.6 pg Normal 26.6-33.0 [facility] Work Phone: Comment on above: PATIENT NOT FASTINGP ERFORMED BY: [facility] Wtgqvf0435 [facility] [id number] MCHC Auto mass conc (RBC) 34.0 g/dL Normal 31.5-35.7 [facility] Work Phone: MCHC mass conc (RBC) 34.0 g/dL Normal 31.5-35.7 [facility] Work Phone: Comment on above: PATIENT NOT FASTINGP ERFORMED BY: [facility] Isduvs1145 [facility] [id number] MCV Auto Entitic volume (RBC) 90 fL Normal 79-97 [facility] Work Phone: MCV Entitic volume (RBC) 90 fL Normal 79-97 [facility] Work Phone: Comment on above: PATIENT NOT FASTINGP ERFORMED BY: JERONIMO [facility] Qxdnef3579 CarlosSang[facility] BioSciencesUNC [facility] [id number] Platelets #/vol (Bld) 305 {x10E3/uL} Normal 150-379 [facility] Work Phone: Comment on above: PATIENT NOT FASTINGP ERFORMED BY: JERONIMO [facility] Oviyyx1044 [address] [facility] [id number] Platelets Auto #/vol (Bld) 305 {x10E3/uL} Normal 150-379 [facility] Work Phone: RBC #/vol (Bld) 4.08 {x10E6/uL} Normal 3.77-5.28 [facility] Internal Medicine Work Phone: Comment on above: PATIENT NOT FASTINGP ERFORMED BY: JERONIMO [facility] Vtkeuj3099 [address] [facility] [id number] RBC Auto #/vol (Bld) 4.08 {x10E6/uL} Normal 3.77-5.28 [facility] Work Phone: WBC #/vol (Bld) 9.0 {x10E3/uL} Normal 3.4-10.8 [facility] Internal Medicine Work Phone: Comment on above: PATIENT NOT FASTINGP ERFORMED BY: [facility] Rvapoa5170 [address] [facility] [id number] WBC Auto #/vol (Bld) 9.0 {x10E3/uL} Normal 3.4-10.8 [facility] Work Phone: CBC (AUTO) ([id number])Ordered By : Registered Mail Clerk on 02-15-2016 Platelets (Bld) [#/Vol] 305 10*3/uL Normal 150-379 [facility]; [facility] Work Phone: Comment on above: PATIENT NOT FASTINGP ERFORMED BY: JERONIMO [facility] Iggtqp5067 [address] RoadDublin [place] [id number] RBC (Bld) [#/Vol] 4.08 10*6/uL Normal 3.77-5.28 Compr ensive Internal Medicine; [facility] Work Phone: Comment on above: PATIENT NOT FASTINGP ERFORMED BY: JERONIMO [facility] Txpdes0639 [address]blin [place] [id number] WBC (Bld) [#/Vol] 9.0 10*3/uL Normal 3.4-10.8 [facility]pre[facility]is [facility]; [facility] Work Phone: Comment on above: PATIENT NOT FASTINGP ERFORMED BY: JERONIMO [facility] Tvmwbu5487 [facility] RoadCannon [facility] Hospitalin [place] [id number] COMPLEMENT C3 (41028)on 01-30 Complement C3 mass conc 109 mg/dL Normal 82-167 [facility] Work Phone: Comment on above: PATIENT NOT FASTINGP ERFORMED BY: JERONIMO [facility] Qyphdx9884 [address] RoadC[facility] Hospitalin [place] [id number] COMPLEMENT C4 (79161)on 01-30 Complement C4 mass conc 19 mg/dL Normal 14-44 [facility] Work Phone: Comment on above: PATIENT NOT FASTINGP ERFORMED BY: JERONIMO [facility] Tzcmjc5457 [address] [facility] [place] [id number] COMPLEMENT, TOTAL (CH50) (86 162)on 02-15-2016 Complement total hemolytic CH50 Qn 57 U/mL Normal 42-60 [facility] Work Phone: Comment on above: PATIENT NOT FASTINGP ERFORMED BY: JERONIMO [facility] Cgbuew0913 [address] Roadblin [place] [id number] Information: [id number] COMPLEMENT, TOTAL (CH50) (86 162)Ordered By: Registered Mail Clerk on 02-15-2016 Complement total hemolytic CH50 Qn 57 [arb'U]/mL Normal 42-60 [facility]; [facility] Work Phone: Comment on above: PATIENT NOT FASTINGP ERFORMED BY: JERONIMO [facility] Asdvgh1783 [facility] [id number] Information: [id number] METABOLIC PANEL, COMPREHENSI VE (07177)on 02-15-2016 Albumin mass conc 4.5 g/dL Normal 3.5-5.5 Compreh ensive Internal Medicine Work Phone: Comment on above: PATIENT NOT FASTINGP ERFORMED BY: JERONIMO [facility] Ysnhld9891 [facility] [id number] Information: [id number] Albumin/Globulin mass ratio 1.7 {ratio} Normal 1.1-2.5 [facility] Work Phone: Comment on above: PATIENT NOT FASTINGP ERFORMED BY: JERONIMO [facility] Kfhkct8627 [facility] [id number] Information: [id number] ALP enzyme act/vol 62 [iU]/L Normal 39-117 [facility] Work Phone: Comment on above: PATIENT NOT FASTINGP ERFORMED BY: JERONIMO [facility] Ezydqa8158 [facility] [id number] Information: [id number],[id number] ALT enzyme act/vol 17 [iU]/L Normal 0-32 [facility] Work Phone: Comment on above: PATIENT NOT FASTINGP ERFORMED BY: JERONIMO [facility] Nmcewj1647 [facility] [id number] Information: [id number],[id number] AST enzyme act/vol 22 [iU]/L Normal 0-40 [facility] Work Phone: Comment on above: PATIENT NOT FASTINGP ERFORMED BY: CB [facility] Wnflwu3578 [facility] [id number] Information: [id number],V57555 Bilirubin mass conc 0.5 mg/dL Normal 0.0-1.2 [facility] Work Phone: Comment on above: PATIENT NOT FASTINGP ERFORMED BY: JERONIMO [facility] Sgsgfh5159 [facility] [id number] Information: 352875,[id number] Calcium mass conc 9.6 mg/dL Normal 8.7-10.2 Compreh ensive Internal Medicine Work Phone: Comment on above: PATIENT NOT FASTINGP ERFORMED BY: JERONIMO [facility] Uxdqrt3300 [facility] [id number] Information: 251738,Z36053 Chloride molar conc 101 mmol/L Normal 97-108 [facility] Work Phone: Comment on above: PATIENT NOT FASTINGP ERFORMED BY: CB [facility] Rbqwec6306 [facility] [id number] Information: [id number],[id number] CO2 molar conc 20 mmol/L Normal 18-29 Comprehens [place] Internal Medicine Work Phone: Comment on above: PATIENT NOT FASTINGP ERFORMED BY: [facility]CentraState Healthcare SystemImsruh6425 [facility] [id number] Information: [id number] Creatinine mass conc 0.77 mg/dL Normal 0.57-1.00 [facility] Work Phone: Comment on above: PATIENT NOT FASTINGP ERFORMED BY: [facility] Yifmfg2736 [facility] [id number] Information: 190119,Q19299 GFR/1.73 sq M predicted among blacks CKD-EPI vol rate/area (S/P/Bld) 116 mL/min/1.73 Normal [facility] Work Phone: Comment on above: PATIENT NOT FASTINGP ERFORMED BY: [facility] Nyhwpk6981 [facility] [id number] Information: 855507,Y17742 GFR/1.73 sq M predicted among non-blacks CKD-EPI vol rate/area (S/P/Bld) 100 mL/min/1.73 Normal [facility] Work Phone: Comment on above: PATIENT NOT FASTINGP ERFORMED BY: CB [facility] Hycsfq9791 [facility] [id number] Information: 136971,Q15672 Globulin Calculated mass conc (S) 2.7 g/dL Normal 1.5-4.5 [facility] Work Phone: Globulin mass conc (S) 2.7 g/dL Normal 1.5-4.5 [facility] Work Phone: Comment on above: PATIENT NOT FASTINGP ERFORMED BY: [place] [id number] [facility] [id number] Information: [id number],[id number] Glucose mass conc 83 mg/dL Normal 65-99 Compreh ensive Internal Medicine Work Phone: Comment on above: Specimen received in contact with cells. No visible hemolysispresent. However GLUC may be decreased and K increased. Clinicalcorrelation indicated. PATIENT NOT FASTINGP ERFORMED BY: Avito.ruXavier [place] 5990070 [facility] [id number] Information: 781601,[id number] Potassium molar conc 4.5 mmol/L Normal 3.5-5.2 [facility] Work Phone: Comment on above: Specimen received in contact with cells. No visible hemolysispresent. However GLUC may be decreased and K increased. Clinicalcorrelation indicated. PATIENT NOT FASTINGP ERFORMED BY: [facility]ito.ruHenry [facility] Hospital6370 [facility] [id number] Information: [id number],[id number] Protein mass conc 7.2 g/dL Normal 6.0-8.5 Compreh ensive Internal Medicine Work Phone: Comment on above: PATIENT NOT FASTINGP ERFORMED BY: Avito.ruXavier [place] 5990070 [facility] [id number] Information: 938257,[id number] Sodium molar conc 140 mmol/L Normal 134-144 Compreh ensive Internal Medicine Work Phone: Comment on above: PATIENT NOT FASTINGP ERFORMED BY: [place] 6251870 [facility] [id number] Information: [id number] Urea nitrogen mass conc 8 mg/dL Normal 6-20 [facility] Work Phone: Comment on above: PATIENT NOT FASTINGP ERFORMED BY: JERONIMO Holcomb6370 Carlos RoadAlbinblin [place] [id number] Information: 332793,[id number] Urea nitrogen/Creatini ne mass ratio 10 mg/mg Normal 8-20 [facility] Work Phone: Comment on above: PATIENT NOT FASTINGP ERFORMED BY: JERONIMO GautamCobarber IsbellHktsno3281 [address] [facility]in [place] [id number] Information: [id number],[id number] METABOLIC PANEL, COMPREHENSI VE (01158)Ordered By: Registered Mail Clerk on 02-15-2016 ALP [Catalytic activity/Vol] 62 U/L Normal 39-117 [facility]; [facility] Work Phone: Comment on above: PATIENT NOT FASTINGP ERFORMED BY: JERONIMO Holcomb6370 [facility] [id number] Information: [id number] ALT [Catalytic activity/Vol] 17 U/L Normal 0-32 [facility]; [facility] Work Phone: Comment on above: PATIENT NOT FASTINGP ERFORMED BY: JERONIMO Holcomb6370 [facility] [id number] Information: [id number] AST [Catalytic activity/Vol] 22 U/L Normal 0-40 [facility]; [facility] Work Phone: Comment on above: PATIENT NOT FASTINGP ERFORMED BY: JERONIMO Isbelllin6370 [address] [facility] [place] [id number] Information: [id number] SED RATE ERYTHROCYTE (19298) on 02-15-2016 ESR Velocity (Bld) 2 mm/h Normal 0-32 [facility] Work Phone: Comment on above: PATIENT NOT FASTINGP ERFORMED BY: JERONIMO Isbelllin6370 [address] [facility] [place] [id number] TSH (92873)on 02-15-2016 Thyrotropin Qn 1.870 {uIU/mL} Normal 0.450-4.500 [facility] Internal Medicine Work Phone: Comment on above: PATIENT NOT FASTINGP ERFORMED BY: JERONIMO [place] 7797470 [facility] [id number] CBC With Differential/Platel eton 10-14-2007 Basophils #/vol (Bld) 0.1 {x10E3/uL} Normal 0.0-0.2 [facility] Work Phone: Comment on above: PATIENT NOT FASTINGP ERFORMED BY: [address] [id number] Basophils Auto #/vol (Bld) 0.1 {x10E3/uL} Normal 0.0-0.2 [facility] Work Phone: Basophils/100 WBC (Bld) 1 % Normal 0-3 [facility] Work Phone: Comment on above: PATIENT NOT FASTINGP ERFORMED BY: [place] [id number] [facility] [id number] Basophils/100 WBC Auto (Bld) 1 % Normal 0-3 [facility] Work Phone: Eosinophils #/vol (Bld) 0.0 {x10E3/uL} Normal 0.0-0.4 [facility] Work Phone: Comment on above: PATIENT NOT FASTINGP ERFORMED BY: [place] 6251870 [facility] [id number] Eosinophils Auto #/vol (Bld) 0.0 {x10E3/uL} Normal 0.0-0.4 [facility] Work Phone: Eosinophils/100 WBC (Bld) 0 % Normal 0-7 [facility] Work Phone: Comment on above: PATIENT NOT FASTINGP ERFORMED BY: [place] 6251870 [facility] [id number] Eosinophils/100 WBC Auto (Bld) 0 % Normal 0-7 [facility] Work Phone: Erythrocyte distribution width Auto Ratio (RBC) 13.0 % Normal 11.7-15.0 [facility] Work Phone: Erythrocyte distribution width Ratio (RBC) 13.0 % Normal 11.7-15.0 [facility] Work Phone: Comment on above: PATIENT NOT FASTINGP ERFORMED BY: [facility] Jwbkyo6118 [facility] [id number] Hematocrit Auto Volume Fraction (Bld) 35.0 % Normal 34.0-44.0 [facility] Work Phone: Hematocrit Volume Fraction (Bld) 35.0 % Normal 34.0-44.0 [facility] Work Phone: Comment on above: PATIENT NOT FASTINGP ERFORMED BY: [facility] Azxuay2844 [facility] [id number] Hemoglobin mass conc (Bld) 12.2 g/dL Normal 11.5-15.0 [facility] Work Phone: Comment on above: PATIENT NOT FASTINGP ERFORMED BY: [facility] Ghzgkx1370 [facility] [id number] Lymphocytes #/vol (Bld) 2.8 {x10E3/uL} Normal 0.7-4.5 [facility] Work Phone: Comment on above: PATIENT NOT FASTINGP ERFORMED BY: [facility] Nbkbra2217 [facility] [id number] Lymphocytes Auto #/vol (Bld) 2.8 {x10E3/uL} Normal 0.7-4.5 [facility] Work Phone: Lymphocytes/100 WBC (Bld) 37 % Normal 14-46 [facility] Work Phone: Comment on above: PATIENT NOT FASTINGP ERFORMED BY: [facility] Suupik2204 [facility] [id number] Lymphocytes/100 WBC Auto (Bld) 37 % Normal 14-46 [facility] Work Phone: MCH Auto Entitic mass (RBC) 30.9 pg Normal 27.0-34.0 [facility] Work Phone: MCH Entitic mass (RBC) 30.9 pg Normal 27.0-34.0 Comprehensive Internal Medicine Work Phone: Comment on above: PATIENT NOT FASTINGP ERFORMED BY: JERONIMO LabCoCentraState Healthcare SystemDeccyl5220 [facility] [id number] MCHC Auto mass conc (RBC) 34.7 g/dL Normal 32.0-36.0 [facility] Work Phone: MCHC mass conc (RBC) 34.7 g/dL Normal 32.0-36.0 [facility] Work Phone: Comment on above: PATIENT NOT FASTINGP ERFORMED BY: JERONIMO [facility] [id number] [facility] [id number] MCV Auto Entitic volume (RBC) 89 fL Normal 80-98 [facility] Work Phone: MCV Entitic volume (RBC) 89 fL Normal 80-98 [facility] Work Phone: Comment on above: PATIENT NOT FASTINGP ERFORMED BY: JERONIMO [facility] [id number] [facility] [id number] Monocytes #/vol (Bld) 0.5 {x10E3/uL} Normal 0.1-1.0 [facility] Work Phone: Comment on above: PATIENT NOT FASTINGP ERFORMED BY: LabXavier Ville 5990070 [facility] [id number] Monocytes Auto #/vol (Bld) 0.5 {x10E3/uL} Normal 0.1-1.0 [facility] Work Phone: Monocytes/100 WBC (Bld) 6 % Normal 4-13 [facility] Work Phone: Comment on above: PATIENT NOT FASTINGP ERFORMED BY: LabCoCentraState Healthcare SystemVffngn0343 [facility] [id number] Monocytes/100 WBC Auto (Bld) 6 % Normal 4-13 [facility] Work Phone: Neutrophils #/vol (Bld) 4.2 {x10E3/uL} Normal 1.8-7.8 [facility] Work Phone: Comment on above: PATIENT NOT FASTINGP ERFORMED BY: JERONIMO Emiliano Holcomb6370 [facility] [id number] Neutrophils Auto #/vol (Bld) 4.2 {x10E3/uL} Normal 1.8-7.8 [facility] Work Phone: Neutrophils/100 WBC (Bld) 56 % Normal 40-74 [facility] Work Phone: Comment on above: PATIENT NOT FASTINGP ERFORMED BY: JERONIMO LabCo Gzytpt0804 [facility] [id number] Neutrophils/100 WBC Auto (Bld) 56 % Normal 40-74 [facility] Work Phone: Platelets #/vol (Bld) 301 {x10E3/uL} Normal 140-415 [facility] Work Phone: Comment on above: PATIENT NOT FASTINGP ERFORMED BY: JERONIMO Noemi [id number] [facility] [id number] Platelets Auto #/vol (Bld) 301 {x10E3/uL} Normal 140-415 [facility] Work Phone: RBC #/vol (Bld) 3.94 {x10E6/uL} Normal 3.80-5.10 [facility] Internal Medicine Work Phone: Comment on above: PATIENT NOT FASTINGP ERFORMED BY: JERONIMO LabDelioCentraState Healthcare SystemQfztoj4764 [facility] [id number] RBC Auto #/vol (Bld) 3.94 {x10E6/uL} Normal 3.80-5.10 [facility] Work Phone: WBC #/vol (Bld) 7.5 {x10E3/uL} Normal 4.0-10.5 [facility] Internal Medicine Work Phone: Comment on above: PATIENT NOT FASTINGP ERFORMED BY: JERONIMO LabCoCentraState Healthcare SystemNydaxe1511 [facility] [id number] WBC Auto #/vol (Bld) 7.5 {x10E3/uL} Normal 4.0-10.5 [facility] Work Phone: Comp. Metabolic Panel (14)on 10-14-2007 Albumin mass conc 4.7 g/dL Normal 3.5-5.5 Compreh ensive [facility] Work Phone: Comment on above: PATIENT NOT FASTINGP ERFORMED BY: CB [facility] [id number] [address] RoadDublin [place] [id number] Albumin/Globulin mass ratio 1.7 {ratio} Normal 1.1-2.5 [facility] Work Phone: Comment on above: PATIENT NOT FASTINGP ERFORMED BY: CB [facility] Akahjt8415 [address] RoadDublin [place] [id number] ALP enzyme act/vol 69 [iU]/L Normal 25-150 [facility] Work Phone: Comment on above: PATIENT NOT FASTINGP ERFORMED BY: CB [facility] [id number] [address] RoadDublin [place] [id number] ALT enzyme act/vol 17 [iU]/L Normal 0-40 [facility] Work Phone: Comment on above: PATIENT NOT FASTINGP ERFORMED BY: JERONIMO [facility] Zpcmxh1871 [address] RoadDublin [place] [id number] AST enzyme act/vol 25 [iU]/L Normal 0-40 [facility] Work Phone: Comment on above: PATIENT NOT FASTINGP ERFORMED BY: CB [facility] Mcvvmc1221 [facility] [id number] Bilirubin mass conc 0.3 mg/dL Normal 0.1-1.2 [facility] Work Phone: Comment on above: PATIENT NOT FASTINGP ERFORMED BY: CB [facility] Sbapds3633 [address] RoadDublin [place] [id number] Calcium mass conc 10.0 mg/dL Normal 8.5-10.6 Compreh [facility] Work Phone: Comment on above: PATIENT NOT FASTINGP ERFORMED BY: CB [facility] Eajtlv4973 [address] [facility] [place] [id number] Chloride molar conc 103 mmol/L Normal 96-109 [facility] Work Phone: Comment on above: PATIENT NOT FASTINGP ERFORMED BY: JERONIMO LabFawad Holcomb6370 [facility] [id number] CO2 molar conc 25 mmol/L Normal 20-32 [facility] [facility] Work Phone: Comment on above: PATIENT NOT FASTINGP ERFORMED BY: JERONIMO [facility] Emwleo6997 [facility] [id number] Creatinine mass conc 0.9 mg/dL Normal 0.5-1.5 [facility] Work Phone: Comment on above: PATIENT NOT FASTINGP ERFORMED BY: JERONIMO LabDelio [id number] [facility] [id number] Globulin Calculated mass conc (S) 2.8 g/dL Normal 1.5-4.5 [facility] Work Phone: Globulin mass conc (S) 2.8 g/dL Normal 1.5-4.5 [facility] Work Phone: Comment on above: PATIENT NOT FASTINGP ERFORMED BY: JERONIMO [facility] Cnjvpu2070 [facility] [id number] Glucose mass conc 86 mg/dL Normal 65-99 Compre[facility] Work Phone: Comment on above: PATIENT NOT FASTINGP ERFORMED BY: JERONIMO [facility] Oppata7120 [facility] [id number] Potassium molar conc 4.5 mmol/L Normal 3.5-5.5 [facility] Work Phone: Comment on above: PATIENT NOT FASTINGP ERFORMED BY: JERONIMO [facility] Rtuubg0426 [facility] [id number] Protein mass conc 7.5 g/dL Normal 6.0-8.5 Compre[facility] Work Phone: Comment on above: PATIENT NOT FASTINGP ERFORMED BY: JERONIMO [facility] Ezkfwd9591 [facility] [id number] Sodium molar conc 141 mmol/L Normal 135-148 Compre[facility] Work Phone: Comment on above: PATIENT NOT FASTINGP ERFORMED BY: JERONIMO Holcomb6370 [facility] [id number] Urea nitrogen mass conc 13 mg/dL Normal 5-26 [facility] Work Phone: Comment on above: PATIENT NOT FASTINGP ERFORMED BY: JERONIMO Isbelllin6370 [facility] [id number] Urea nitrogen/Creatini ne mass ratio 14 mg/mg Normal 8-27 [facility] Work Phone: Comment on above: PATIENT NOT FASTINGP ERFORMED BY: JEROINMO Holcomb6370 [facility] [id number] EBV Acute Infection Antibodi eson 10-14-2007 EBV Acute Infection Antibodies 4 AU/mL Normal 0-99 [facility] Work Phone: Comment on above: Negative <100 Equivo feli 100 - 120 Positive >120 PATIENT NOT FASTINGP ERFORMED BY: JERONIMO Isbelllin6370 [facility] [id number] EBV Acute Infection Antibodies 83 AU/mL Normal 0-99 [facility] Work Phone: Comment on above: Negative <100 Equivo feli 100 - 120 Positive >120 PATIENT NOT FASTINGP ERFORMED BY: JERONIMO Isbelllin6370 [facility] [id number] EBV Acute Infection Antibodies SPRCS Normal [facility] Work Phone: Comment on above: EBV Interpretation C lawson: VCA-IgM EA-IgG VCA-IgG NA-ABS Susceptible - - - - Acute Infection + +or- + - Convalescent Phase +or- +or- + + Chronic or Reactivated - + + +or- Old Infection - - +or- + + Antibody Present - Antibody Absent PATIENT NOT FASTINGP ERFORMED BY: JERONIMO Isbelllin6370 [facility] [id number] EBV Acute Infection Antibodies 20 AU/mL Normal 0-99 [facility] Work Phone: Comment on above: Negative <100 Equivo feli 100 - 120 Positive >120 PATIENT NOT FASTINGP ERFORMED BY: JERONIMO LabCobarber Saffnm7884 [facility] [id number] EBV Acute Infection Antibodies 2 AU/mL Normal 0-99 [facility] Work Phone: Comment on above: Negative <100 Equivo feli 100 - 120 Positive >120 PATIENT NOT FASTINGP ERFORMED BY: JERONIMO LabCo Ozfafq9453 [facility] [id number] Hepatic Function Panel (7)on 10-14-2007 Bilirubin.direct mass conc 0.07 mg/dL Normal 0.00-0.40 [facility] Work Phone: Comment on above: PATIENT NOT FASTINGP ERFORMED BY: JERONIMO LabDelio Pisoal8324 [facility] [id number] Mononucleosis Test, [place] 1 12-14-2006 Heterophile Ab LA Ql (S) Negative Normal [facility] Work Phone: Comment on above: The sensitivity of H eterophile antibody testing is 80- 90%.Hector Davis IgM testing offers higher sensitivity. PATIENT NOT FASTINGP ERFORMED BY: JERONIMO LabCo Xaqazx3650 [facility] [id number] TSHon 10-14-2007 Thyrotropin Qn 2.457 {uIU/mL} Normal 0.350-5.500 [facility] Work Phone: Comment on above: PATIENT NOT FASTINGP ERFORMED BY: LabCo Qrxmhd9453 [facility] [id number] Urinalysis, Office ([id number])Or dered By: Alicja Ferrer on 10-14-2007 Bilirubin Ql (U) Negative Normal Comprehe nsive [facility] Work Phone: Comment on above: trace leukocytes and SG >1025 Glucose Test strip mass conc (U) Negative Normal [facility] Work Phone: Comment on above: trace leukocytes and SG >1025 Hemoglobin Ql (U) Negative Normal Com[facility] Work Phone: Comment on above: trace leukocytes and SG >1025 Hemoglobin Test strip Ql (U) Negative Normal [facility] Work Phone: Ketones Ql (U) Negative Normal [facility] [facility] Work Phone: Comment on above: trace leukocytes and SG >1025 Leukocyte esterase Test strip Ql (U) Trace Normal [facility] Work Phone: Comment on above: aw trace leukocytes and SG >1025 Nitrite Ql (U) Negative Normal [facility] Work Phone: Comment on above: trace leukocytes and SG >1025 Nitrite Test strip Ql (U) Negative Normal [facility] Work Phone: pH (U) 6.5 [pH] Normal [facility] Work Phone: Comment on above: trace leukocytes and SG >1025 pH Test strip (U) 6.5 [pH] Normal Compre[facility] Work Phone: Protein Ql (U) Negative Normal [facility] Work Phone: Comment on above: trace leukocytes and SG >1025 Protein Test strip Ql (U) Negative Normal [facility] Work Phone: Specific gravity Relative Density (U) 1.025 1 Normal [facility] Work Phone: Comment on above: trace leukocytes and SG >1025 Urobilinogen mass/time (24H U) Normal Normal [facility] Work Phone: Comment on above: trace leukocytes and SG >1025 Urinalysis, Office ([id number])on 10-14-2007 Bilirubin Ql (U) Negative Normal Compre[facility] ns[facility]; [facility] Work Phone: Comment on above: trace leukocytes and SG >1025 Glucose Test strip (U) [Mass/Vol] Negative Normal [facility]; [facility] Work Phone: Comment on above: trace leukocytes and SG >1025 Hemoglobin Ql (U) Negative Normal Compre[facility]; [facility] Work Phone: Comment on above: trace leukocytes and SG >1025 Ketones Ql (U) Negative Normal [facility]; [facility] Work Phone: Comment on above: trace leukocytes and SG >1025 Nitrite Ql (U) Negative Normal [facility]; [facility] Work Phone: Comment on above: trace leukocytes and SG >1025 Protein Ql (U) Negative Normal [facility]; [facility] Work Phone: Comment on above: trace leukocytes and SG >1025 Urine Test, Office ([id number])Ordered By: Alicja Ferrer on 10-14-2007 HCG.beta subunit ( test) Ql (U) Negative Normal [facility] Work Phone: Comment on above: aw Urine Test, Office ([id number])on 10-14-2007 Urine Test, Office ([id number]) Negative Normal [facility]; [facility] Work Phone: Comment on above: aw hCG,Beta Subunit,Qual,Serumo n 10-14-2007 HCG.beta subunit ( test) Ql Negative Normal [facility] Work Phone: Comment on above: Negative < 5 Borderl ine 5 - 20 Positive >20 PATIENT NOT FASTINGP ERFORMED BY: LabCoCentraState Healthcare SystemUlxkaz4823 [facility] [id number] Vital Signs Date Time Vital Sign Value Performing Clinician Facility 08-02-2021 08:040 Body height 168.91 cm Martha Santos LPN [facility]; [facility] Work Phone: 08-02-2021 08:040 Body mass index (BMI) [Ratio] 21.66 kg/m2 Martha Santos LPN [facility]; [facility] Work Phone: 08-02-2021 08:040 Body surface area Derived from formula 1.71 m2 Martha Santos LPN [facility]; [facility] Work Phone: 08-02-2021 08:040 Body temperature 97.1 [degF] Martha Santos LPN [facility]; [facility] Work Phone: Comment on above: Method: Temporal 08-02-2021 08:19-0400 Body weight 61.8 kg Martha Santos LPN [facility]; [facility] Work Phone: 08-02-2021 08:19-0400 Diastolic blood pressure 75 mm[Hg] Martha Santos LPN [facility]; [facility] Work Phone: Comment on above: Patient Position: Sitting; Cuff Location : Left Arm; Cuff Size: Standard 08-02-2021 08:19-0400 Heart rate 70 /min Martha Santos LPN [facility]; [facility] Work Phone: Comment on above: Pattern: Regular 08-02-2021 08:19-0400 Respiratory rate 16 /min Martha Santos LPN [facility]; [facility] Work Phone: Comment on above: Pattern: Unlabored 08-02-2021 08:19-0400 SaO2% (BldA) [Mass fraction] 99 % Martha Santos [employer] [facility]; [facility] Work Phone: Comment on above: Room air 08-02-2021 08:19-0400 Systolic blood pressure 126 mm[Hg] Martha Santos LPN [facility]; [facility] Work Phone: Comment on above: Patient Position: Sitting; Cuff Location : Left Arm; Cuff Size: Standard 12-16-2020 07:08-0500 BMI (Body Mass Index) 21.66 kg/m2 Zainab Balderason DO Work Phone: [facility]; [facility] Work Phone: Comment on above: virtual visit 12-16-2020 07:08-0500 Body weight 61.8 kg Zainab Balderason DO Work Phone: [facility]; [facility] Work Phone: Comment on above: virtual visit 12-16-2020 07:08-0500 BP Diastolic 66 mm[Hg] Zainab Balderason DO Work Phone: [facility]; [facility] Work Phone: Comment on above: Patient Position: Sitting virtual visit 12-16-2020 07:08-0500 BP Systolic 100 mm[Hg] Zainab Richey DO Work Phone: [facility]; [facility] Work Phone: Comment on above: Patient Position: Sitting virtual visit 12-16-2020 07:08-0500 BSA (Body Surface Area) 1.71 m2 Zainab Richey DO Work Phone: [facility]; [facility] Work Phone: Comment on above: virtual visit 12-16-2020 07:08-0500 Height 168.91 cm Zainab Richey DO Work Phone: [facility]; [facility] Work Phone: Comment on above: virtual visit 10-02-2019 09:01-0400 BMI (Body Mass Index) 21.66 kg/m2 Gin Irwin RN [facility] Work Phone: 10-02-2019 09:01-0400 Body weight 61.8 kg Gin Irwin RN [facility] Work Phone: 10-02-2019 09:01-0400 BP Diastolic 62 mm[Hg] Gin Irwin RN [facility] Work Phone: Comment on above: Patient Position: Sitting; Cuff Location : Left Arm; Cuff Size: Large 10-02-2019 09:01-0400 BP Systolic 102 mm[Hg] Gin Irwin RN [facility] Work Phone: Comment on above: Patient Position: Sitting; Cuff Location : Left Arm; Cuff Size: Large 10-02-2019 09:01-0400 BSA (Body Surface Area) 1.71 m2 Gin Irwin RN [facility] Work Phone: 10-02-2019 09:01-0400 Height 168.91 cm Gin Irwin RN [facility] Work Phone: 10-02-2019 09:01-0400 Pulse (Heart Rate) 66 /min Gin Irwin RN [facility] Work Phone: Comment on above: Pattern: Regular 10-02-2019 09:01-0400 Pulse Oximetry 98 % Zainab Richey [facility] Work Phone: Comment on above: Room air 10-02-2019 09:01-0400 Respiratory Rate 18 /min Gin Irwin RN [facility] Work Phone: Comment on above: Pattern: Unlabored 10-02-2019 09:01-0400 SaO2% (BldA) [Mass fraction] 98 % Gin Irwin RN [facility]; [facility] Work Phone: Comment on above: Room air 05-11-2019 11:42-0400 BMI (Body Mass Index) 21.66 kg/m2 Tigist Peterson [facility] Work Phone: 05-11-2019 11:42-0400 Body Temperature 98.5 [degF] Tigist Peterson [facility] Work Phone: Comment on above: Method: Temporal 05-11-2019 11:42-0400 Body weight 61.8 kg Tigist Peterson [facility] Work Phone: 05-11-2019 11:42-0400 BP Diastolic 70 mm[Hg] Tigist Kristen [facility] Work Phone: Comment on above: Patient Position: Sitting; Cuff Location : Left Arm; Cuff Size: Standard 05-11-2019 11:42-0400 BP Systolic 108 mm[Hg] Tigist Peterson [facility] Work Phone: Comment on above: Patient Position: Sitting; Cuff Location : Left Arm; Cuff Size: Standard 05-11-2019 11:42-0400 BSA (Body Surface Area) 1.71 m2 Tigist Peterson [facility] Work Phone: 05-11-2019 11:42-0400 Height 168.91 cm Tigist Peterson [facility] Work Phone: 05-11-2019 11:42-0400 Pulse (Heart Rate) 74 /min Tigist Kristen [facility] Work Phone: Comment on above: Pattern: Regular 05-11-2019 11:42-0400 Pulse Oximetry 99 % Zainab Richey [facility] Work Phone: Comment on above: Room air 05-11-2019 11:42-0400 Respiratory Rate 16 /min Tigist Peterson CMA [facility] Internal Medicine Work Phone: Comment on above: Pattern: Unlabored 05-11-2019 11:42-0400 SaO2% (BldA) [Mass fraction] 99 % Tigist Peterson CMA [facility]; [facility] Work Phone: Comment on above: Room air 05-11-2019 11:42-0400 Weight 61.8 kg Zainab Richey [facility] Internal Medicine Work Phone: 11-12-2018 13:15-0500 BMI (Body Mass Index) 21.66 kg/m2 Ruthy Robertson [facility] Medicine Work Phone: 11-12-2018 13:15-0500 Body Temperature 97.7 [degF] Ruthy Robertson [facility] Work Phone: Comment on above: Method: Temporal 11-12-2018 13:15-0500 Body weight 61.8 kg Ruthy Robertson [facility] Work Phone: 11-12-2018 13:15-0500 BP Diastolic 80 mm[Hg] Ruthy Robertson [facility] Work Phone: Comment on above: Patient Position: Sitting; Cuff Location : Left Arm; Cuff Size: Standard 11-12-2018 13:15-0500 BP Systolic 105 mm[Hg] Ruthy Robertson [facility] Work Phone: Comment on above: Patient Position: Sitting; Cuff Location : Left Arm; Cuff Size: Standard 11-12-2018 13:15-0500 BSA (Body Surface Area) 1.71 m2 Ruthy Robertson [facility] Work Phone: 11-12-2018 13:15-0500 Height 168.91 cm Ruthy Robertson [facility] Work Phone: 11-12-2018 13:15-0500 Pulse (Heart Rate) 75 /min Ruthy Robertson [facility] Work Phone: Comment on above: Pattern: Regular 11-12-2018 13:15-0500 Pulse Oximetry 98 % Zainab Richey [facility] Internal Medicine Work Phone: Comment on above: Room air 11-12-2018 13:15-0500 Respiratory Rate 16 /min Ruthy Robertson [facility] Work Phone: Comment on above: Pattern: Unlabored 11-12-2018 13:15-0500 SaO2% (BldA) [Mass fraction] 98 % Ruthy Robertson [facility]; [facility] Work Phone: Comment on above: Room air 11-12-2018 13:15-0500 Weight 61.8 kg Zainab Richey [facility] Internal Medicine Work Phone: 10-07-2018 10:26-0500 BMI (Body Mass Index) 21.34 kg/m2 [facility] Internal Medicine Work Phone: 10-07-2018 10:26-0500 Body Temperature 97.8 [degF] [facility] Work Phone: Comment on above: Method: Temporal 10-07-2018 10:26-0500 Body weight 60.9 kg [facility] Work Phone: 10-07-2018 10:26-0500 BP Diastolic 70 mm[Hg] [facility] Work Phone: Comment on above: Patient Position: Sitting; Cuff Location : Left Arm; Cuff Size: Standard 10-07-2018 10:26-0500 BP Systolic 122 mm[Hg] [facility] Work Phone: Comment on above: Patient Position: Sitting; Cuff Location : Left Arm; Cuff Size: Standard 10-07-2018 10:26-0500 BSA (Body Surface Area) 1.7 m2 [facility] Work Phone: 10-07-2018 10:26-0500 Height 168.91 cm [facility] Work Phone: 10-07-2018 10:26-0500 Pulse (Heart Rate) 71 /min Colette Narayan [facility] Work Phone: Comment on above: Pattern: Regular 10-07-2018 10:26-0500 Respiratory Rate 17 /min Colette Narayan [facility] Work Phone: Comment on above: Pattern: Unlabored 10-07-2018 10:26-0500 Weight 60.9 kg Zainab Richey [facility] Work Phone: 07-03-2018 13:14-0400 BMI (Body Mass Index) 20.91 kg/m2 Gin Irwin RN [facility] Work Phone: 07-03-2018 13:14-0400 Body weight 59.65 kg Gin Irwin RN [facility] Work Phone: 07-03-2018 13:14-0400 BP Diastolic 68 mm[Hg] Gin Irwin RN [facility] Work Phone: Comment on above: Patient Position: Sitting; Cuff Location : Left Arm; Cuff Size: Standard 07-03-2018 13:14-0400 BP Systolic 118 mm[Hg] Gin Irwin RN [facility] Work Phone: Comment on above: Patient Position: Sitting; Cuff Location : Left Arm; Cuff Size: Standard 07-03-2018 13:14-0400 BSA (Body Surface Area) 1.68 m2 Gin Irwin RN [facility] Work Phone: 07-03-2018 13:14-0400 Height 168.91 cm Gin Irwin RN [facility] Work Phone: 07-03-2018 13:14-0400 Pulse (Heart Rate) 67 /min Gin Irwin RN [facility] Work Phone: Comment on above: Pattern: Regular 07-03-2018 13:14-0400 Pulse Oximetry 98 % Zainab Richey [facility] Work Phone: Comment on above: Room air 07-03-2018 13:14-0400 Respiratory Rate 18 /min Gin Irwin RN [facility] Work Phone: Comment on above: Pattern: Unlabored 07-03-2018 13:14-0400 SaO2% (BldA) [Mass fraction] 98 % Gin Irwin RN [facility]; [facility] Work Phone: Comment on above: Room air 07-03-2018 13:14-0400 Weight 59.65 kg Zainab Richey [facility] Work Phone: 02-15-2016 09:07-0400 BMI (Body Mass Index) 21 kg/m2 Gin Irwin [facility] Work Phone: 02-15-2016 09:07-0400 Body weight 59.9 kg Gin Irwin [facility] Work Phone: 02-15-2016 09:07-0400 BP Diastolic 60 mm[Hg] Gin Irwin [facility] Work Phone: Comment on above: Patient Position: Sitting; Cuff Location : Left Arm; Cuff Size: Standard 02-15-2016 09:07-0400 BP Systolic 108 mm[Hg] Gin Irwin [facility] Work Phone: Comment on above: Patient Position: Sitting; Cuff Location : Left Arm; Cuff Size: Standard 02-15-2016 09:07-0400 BSA (Body Surface Area) 1.69 m2 Gin Irwin [facility] Work Phone: 02-15-2016 09:07-0400 Height 168.91 cm Gin Irwin [facility] Work Phone: 02-15-2016 09:07-0400 Pulse (Heart Rate) 67 /min Gin Irwin [facility] Work Phone: Comment on above: Pattern: Regular 02-15-2016 09:07-0400 Pulse Oximetry 97 % Zainab Richey [facility] Work Phone: Comment on above: Room air 02-15-2016 09:07-0400 Respiratory Rate 18 /min Gin Irwin [facility] Work Phone: Comment on above: Pattern: Unlabored 02-15-2016 09:07-0400 SaO2% (BldA) [Mass fraction] 97 % Gin Irwin [facility]; [facility] Work Phone: Comment on above: Room air 02-15-2016 09:07-0400 Weight 59.9 kg Zainab Richey [facility] Work Phone: 05-17-2010 12:40-0400 Body Temperature 96.7 [degF] Zainab Richey [facility] Work Phone: 05-17-2010 12:40-0400 BP Diastolic 64 mm[Hg] Zainab Richey [facility] Work Phone: Comment on above: Patient Position: Sitting; Cuff Location : Left Arm; Cuff Size: Large 05-17-2010 12:40-0400 BP Systolic 92 mm[Hg] Zainab Richey [facility] Work Phone: Comment on above: Patient Position: Sitting; Cuff Location : Left Arm; Cuff Size: Large 05-17-2010 12:40-0400 Pulse (Heart Rate) 96 /min Zainab Richey [facility] Work Phone: Comment on above: Pattern: Regular 05-17-2010 12:40-0400 Respiratory Rate 18 /min Zainab Richey [facility] Work Phone: Comment on above: Pattern: Unlabored 01-25-2009 11:28-0500 Body Temperature 97 [degF] Gin Irwin RN [facility] Work Phone: Comment on above: Method: Oral 01-25-2009 11:28-0500 Body weight 0 kg Gin Irwin RN [facility] Work Phone: 01-25-2009 11:28-0500 BP Diastolic 68 mm[Hg] Gin Irwin [facility] Work Phone: Comment on above: Patient Position: Sitting; Cuff Location : Left Arm; Cuff Size: Standard 01-25-2009 11:28-0500 BP Systolic 98 mm[Hg] Gin Irwin [facility] Work Phone: Comment on above: Patient Position: Sitting; Cuff Location : Left Arm; Cuff Size: Standard 01-25-2009 11:28-0500 Head Circumference 0 cm Zainab Richey [facility] Work Phone: 01-25-2009 11:28-0500 Head Occipital-frontal circumference 0 cm Gin Irwin [facility]; [facility] Work Phone: 01-25-2009 11:28-0500 Height 168.91 cm Gin Irwin [facility] Work Phone: 01-25-2009 11:28-0500 Pulse (Heart Rate) 72 /min Gin Irwin [facility] Work Phone: Comment on above: Pattern: Regular 01-25-2009 11:28-0500 Respiratory Rate 16 /min Gin Irwin [facility] Work Phone: Comment on above: Pattern: Unlabored 01-25-2009 11:28-0500 Weight 0 kg Zainab Richey [facility] Work Phone: 12-31-2008 10:26-0500 Body weight 0 kg Gin Irwin [facility] Work Phone: 12-31-2008 10:26-0500 BP Diastolic 64 mm[Hg] Gin Irwin [facility] Work Phone: Comment on above: Patient Position: Sitting; Cuff Location : Left Arm; Cuff Size: Large 12-31-2008 10:26-0500 BP Systolic 96 mm[Hg] Gin Irwin [facility] Work Phone: Comment on above: Patient Position: Sitting; Cuff Location : Left Arm; Cuff Size: Large 12-31-2008 10:26-0500 Head Circumference 0 cm Zainab Richey [facility] Work Phone: 12-31-2008 10:26-0500 Head Occipital-frontal circumference 0 cm Gin Irwin [facility]; [facility] Work Phone: 12-31-2008 10:26-0500 Height 168.91 cm Gin Irwin [facility] Work Phone: 12-31-2008 10:26-0500 Pulse (Heart Rate) 64 /min Gin Irwin [facility] Work Phone: Comment on above: Pattern: Regular 12-31-2008 10:26-0500 Respiratory Rate 20 /min Gin Irwin RN [facility] Work Phone: Comment on above: Pattern: Unlabored 12-31-2008 10:26-0500 Weight 0 kg Zainab Richey [facility] Work Phone: 10-14-2007 15:59-0500 Body Temperature 98.4 [degF] Zainab Richey [facility] Work Phone: Comment on above: Method: Oral 10-14-2007 15:59-0500 Body weight 0 kg Zainab Richey [facility] Work Phone: 10-14-2007 15:59-0500 BP Diastolic 50 mm[Hg] Zainab Richey [facility] Work Phone: Comment on above: Patient Position: Sitting; Cuff Location : Left Arm; Cuff Size: Standard 10-14-2007 15:59-0500 BP Systolic 88 mm[Hg] Zainab Richey [facility] Work Phone: Comment on above: Patient Position: Sitting; Cuff Location : Left Arm; Cuff Size: Standard 10-14-2007 15:59-0500 Head Circumference 0 cm Zainab Richey [facility] Work Phone: 10-14-2007 15:59-0500 Head Occipital-frontal circumference 0 cm Zainab Richey DO Work Phone: [facility]; [facility] Work Phone: 10-14-2007 15:59-0500 Height 168.91 cm Zainab Richey [facility] Work Phone: 10-14-2007 15:59-0500 Pulse (Heart Rate) 72 /min Zainab Richey [facility] Work Phone: Comment on above: Pattern: Regular 10-14-2007 15:59-0500 Respiratory Rate 18 /min Zainab Richey [facility] Work Phone: Comment on above: Pattern: Unlabored 10-14-2007 15:59-0500 Weight 0 kg Zainab Richey [facility] Work Phone: 03-27-2007 10:25-0400 Body Temperature 98.1 [degF] Zainab Richey [facility] Work Phone: Comment on above: Method: Oral 03-27-2007 10:25040 Body weight 0 kg Zainab Richey [facility] Work Phone: 03-27-2007 10:25-0400 BP Diastolic 62 mm[Hg] Zainab Richey [facility] Work Phone: Comment on above: Patient Position: Sitting; Cuff Location : Left Arm; Cuff Size: Standard 03-27-2007 10:25-0400 BP Systolic 106 mm[Hg] Zainab Richey [facility] Work Phone: Comment on above: Patient Position: Sitting; Cuff Location : Left Arm; Cuff Size: Standard 03-27-2007 10:250400 Head Circumference 0 cm Zainab Richey [facility] Work Phone: 03-27-2007 10:25-0400 Head Occipital-frontal circumference 0 cm Zainab Richey DO Work Phone: [facility]; [facility] Work Phone: 03-27-2007 10:25-0400 Height 0 cm Zainab Richey [facility] Work Phone: 03-27-2007 10:25-0400 Pulse (Heart Rate) 76 /min Zainab Richey [facility] Work Phone: Comment on above: Pattern: Regular 03-27-2007 10:25-0400 Respiratory Rate 17 /min Zainab Richey [facility] Work Phone: Comment on above: Pattern: Unlabored 03-27-2007 10:25-0400 Weight 0 kg Zainab Richey [facility] Work Phone: Encounters Encounter Date Encounter Type Care Provider Facility Start: 09-16-2024 End: 09-16-2024 ambulatory Immunization Clinic Nurse Gilmore Work Phone: [facility] Start: 09-16-2024 End: 09-16-2024 Patient encounter procedure Immunization Clinic Nurse Deirdre Work Phone: [facility] [place] Start: 09-03-2024 End: 09-03-2024 ambulatory ZAINAB RICHEY Facility:[facility] Start: 09-03-2024 End: 09-03-2024 Telemedicine consultation with patient Minal Frazier MANDO.CAROL Work Phone: Telemedicine Comment on above: Vaginal discharge (P rimary Dx) Start: 01-29-2024 Telephone encounter Afshin PATTEN Work Phone: [facility] Comment on above: Results Start: 01-28-2024 End: 01-28-2024 ambulatory ZAINAB RICHEY Facility:[facility] Start: 10-04-2023 End: 10-04-2023 ambulatory Immunization Clinic Nurse Deirdre Work Phone: [facility] [place] Start: 08-02-2021 End: 08-02-2021 Office outpatient visit 10 minutes Zainab Richey DO Work Phone: [facility] Start: 12-16-2020 End: 12-16-2020 Office outpatient visit 15 minutes Zainab Richey [facility] Start: 12-16-2020 Review Zainab Richey [facility] Start: 10-02-2019 End: 10-02-2019 Office outpatient visit 15 minutes Zainab Richey [facility] Start: 05-11-2019 End: 05-11-2019 Office outpatient visit 15 minutes Zainab Richey [facility] Start: 11-20-2018 End: 11-20-2018 Phone Encounter Zainab Richey [facility] Start: 11-19-2018 End: 11-19-2018 Annotation/Addendum Zainab Richey [facility] Start: 11-12-2018 End: 11-12-2018 Office outpatient visit 15 minutes Zainab Richey [facility] Start: 11-11-2018 Patient encounter procedure Zainab [facility] Start: 10-07-2018 End: 10-09-2018 Office outpatient visit 25 minutes Zainab Richey [facility] Start: 07-03-2018 End: 07-03-2018 Office outpatient visit 10 minutes Zainab Richey [facility] Start: 02-15-2016 End: 02-15-2016 Office outpatient new 30 minutes Zainab Richey [facility] Start: 05-17-2010 End: 05-17-2010 Patient encounter Zainab Richey [facility] Start: 01-25-2009 End: 01-25-2009 Patient encounter Zainab Richey [facility] Start: 12-31-2008 End: 12-31-2008 Patient encounter Zainab Richey [facility] Start: 10-14-2007 End: 10-14-2007 Office outpatient visit 25 minutes Zainabnemo Richey [facility] Start: 03-27-2007 End: 03-27-2007 Office outpatient visit 25 minutes Zainabnemo Richey [facility] Procedures Date Procedure Procedure Detail Performing Clinician Start: 10-04-2023 INFLUENZA VACCINE, AGE 6 MO - 64 YR, QUADRIVALENT (AFLURIA, FLULAVAL, FLUZONE) Talha Freeman MD Work Phone: Start: 03-06-2022 End: 03-06-2022 Hospice Care Consultant Office Visit Report Comments: See Note; NOTES: [facility] 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) Allergies Penicillins Allergy (Verified 03/06/22 14:36) Other Medications spironolactone 50 mg tablet 50 mg PO DAILY 01/18/20 [History Confirmed 03/06/22] hydroxychloroquine 200 mg tablet 200 mg PO DAILY 11/17/21 [History Confirmed 03/06/22] Is last menstrual period known: Yes Last Menstral Period: 02/19/22 [facility] Medical History History of kidney stones Surgical [...] home: Yes additional social history: - 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 Date Name GA/Weeks Outcome Route Bth Weight Infant Gen Labor Lgth Anesthesia Del Locatn Provider FOB Unknown Jesus Manuel-08/31/2005 Unknown Micheal-03/19/2007 HPI Encounter for routine gynecological examination: Details: LYNDA CARDENAS is a 41 year old who presents for annual exam. Denies concerns. Menses are not as heavy as last year. Last PAP: 2019 History of abnormal PAP: no Last mammogram: 02/08/22 History of abnormal mammogram: no Details: LYNDA CARDENAS is a 41 year old who presents [...] oriented to person and oriented to place [facility] Head: normal to inspection Neck Neck: [...] without abnormal findings Plan - Beth Steele SHOWER DOORS AND PANELS FABRICATOR, SHOWER DOORS AND PANELS FABRICATOR-C: Completed breast and pelvic exam Reviewed diet and exercise Pap 2020 Mammogram today pending breast self exam encouraged monthly Contraception spouse vasectomy Colonoscopy age 50 RTO 1 year, prn with problems Beth Steele FEED GRINDER Plan Details Other Orders: Orders: SCRN MAMM (CAD)W/KANDY BILAT 01/30/22 03/06/22 0967 <Electronically signed by Beth Steele NP SHOWER DOORS AND PANELS FABRICATOR-C> Date Beth Steele NP SHOWER DOORS AND PANELS FABRICATOR-C Cosigner Signature: Date (if applicable) CC: Zainab Richey DO Work Phone: Start: 01-30-2022 End: 01-30-2022 SCRN MAMM (CAD)W/KANDY BILAT Comments: See Note; NOTES: [facility] Services [address] [place] [address] SCRN MAMM (CAD)W/KANDY BILAT MR#: [id number] Acct: [id number] Name: LYNDA CARDENAS Rep #: [id number] : 1980 F 41 From: Radu brooks MD PCP: Dr. Zainab Richey, DO Status: [facility] Study: SCRN MAMM (CAD)W/KANDY BILAT Date of Exam: 12/23 Exam# [id number] Ordering Dr: Beth Steele SHOWER DOORS AND PANELS FABRICATOR SHOWER DOORS AND PANELS FABRICATOR -C MAMMOGRAPHY - BILATERAL SCREENING REASON FOR [...] delay biopsy of a clinically suspicious abnormality. [id number] Electronically Signed: Radu Cramer MD at 9:01 EST Reading Location ID and State: [facility] / [place] , Service support , CC: ARLINE Steele; Dr. Zainab Richey DO Sort Supervisor: Signed Zainab Richey DO Work Phone: Start: 11-17-2021 End: 11-17-2021 Urgent Care Visit Report Comments: See Note; NOTES: [facility] [address] [place] [address] [address] [place] [id number] OFFICE VISIT Date of Service: 11/17/21 MR#: [id number] Acct: [id number] Name: LYNDA CARDENAS Rep #: [id number] : 1980 Provider: SANDOR Benavidez Age/Sex: 41/F Location[place] [facility] Status: Signed Intake Vital Signs 11/17/21 09:13 [...] (Updated 01/24/21 @ 11:25 by Beth Steele SHOWER DOORS AND PANELS FABRICATOR, SHOWER DOORS AND PANELS FABRICATOR-C) Smoking Status: Never smoker alcohol intake: never substance use type: does not use caffeine: Yes what type of physical activity do you participate in: walking and aerobics frequency: 3-4 times per week seatbelt use: always do you feel safe at home: Yes additional social history: - Meño- risk advisor 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 Zainab Richey, Status: REG CLI Study: Pelvic (Non ) Date of Exam: 02/08/21 Exam# [id number] Ordering Dr: Beth Steele SHOWER DOORS AND PANELS FABRICATOR SHOWER DOORS AND PANELS FABRICATOR -C STUDY: ULTRASOUND OF THE FEMALE PELVIS [...] CC: ARLINE Steele; Dr. Zainab Richey DO Sort Supervisor: Bam Richey DO Work Phone: Start: 02-08-2021 End: 02-13-2021 SCRN MAMM (CAD)W/KANDY BILAT Comments: See Note; NOTES: [facility] [address] [place] [address] SCRN MAMM (CAD)W/KANDY BILAT MR#: [id number] Acct: [id number] Name: LYNDA CARDENAS Rep #: [id number] : 1980 F 40 From: Radu brooks MD PCP: Dr. Zainab Richey DO Status: REG CLI Study: SCRN MAMM (CAD)W/KANDY BILAT Date of Exam: 01/30 Exam# [id number] Ordering Dr: Beth Steele NP SHOWER DOORS AND PANELS FABRICATOR -C MAMMOGRAPHY - BILATERAL SCREENING REASON FOR [...] delay biopsy of a clinically suspicious abnormality. [id number] Electronically Signed: Radu Cramer MD at 11:17 EDT , Service support , CC: ARLINE Steele; Dr. Zainab Richey DO Sort Supervisor: Signed Zainab Richey DO Work Phone: Start: 02-08-2021 End: 02-08-2021 Transvaginal Non- Comments: See Note; NOTES: [facility] [address] [place] [address] Transvaginal Non- MR#: [id number] Acct: [id number] Name: LYNDA CARDENAS Rep #: [id number] : 1980 F 40 From: Luca Yanez MD PCP: Dr. Zainab Richey, DO Status: REG CLI Study: Transvaginal Non- Date of Exam: Exam# [id number] Ordering Dr: Beth Steele NP SHOWER DOORS AND PANELS FABRICATOR -C STUDY: ULTRASOUND OF THE FEMALE PELVIS [...] CC: ARLINE Steele; Dr. Zainab Richey DO Sort Supervisor: Signed Zainab Richey DO Work Phone: Start: 01-24-2021 End: 01-24-2021 Hospice Care Consultant Office Visit Report Comments: See Note; NOTES: [facility] 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 Required: No Accompanied by: self Allergies Penicillins Allergy (Verified 01/24/21 09:54) Other Medications spironolactone 50 mg tablet 50 mg PO DAILY 01/18/20 [History Confirmed 01/24/21] Is last menstrual period known: Yes Last Menstral Period: 01/03/21 Post menopausal: No Patient : No : No [facility] Medical History History of kidney stones (Acute) [...] home: Yes additional social history: - 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 Date Name GA/Weeks Outcome Route Bth Weight Gen Labor Lgth Anesthesia Del Locatn Provider COLLEEN Unknown Jesus Manuel-08/31/2005 Unknown Micheal-03/19/2007 HPI Encounter for routine gynecological examination: Details: LYNDA CARDENAS is a 40 year old who presents for annual exam. Menses heavier, regular, last 5 days. Changing super tampon every 1-2 hours first 1-2 days. Declines oral contraceptives and had self expulsion of mirena IUD. Last PAP: 2019 History of abnormal PAP: no Last mammogram: 01/2020 History of abnormal mammogram: no Other preventative health care screenings: [place] Female Reproductive History Last Menstral Period: 01/03/21 [...] alert, oriented to person, oriented to place [facility] Head: normal to inspection Neck Neck: normal [...] 1 year, prn with problems Beth Steele FEED GRINDER Orders Orders: SCRN MAMM (CAD)W/KANDY BILAT Today [...] (CAD) W/KANDY BILAT Comments: See Note; NOTES: [facility] [address] [place] [address] SCREEN MAMM (CAD) W/KANDY BILAT MR#: [id number] Acct: [id number] Name: LYNDA CARDENAS Rep #: [id number] : 1980 F 39 From: Juan Francisco Baez DO PCP: Zainab Richey DO Status: REG CLI Study: SCREEN MAMM (CAD) W/KANDY BILAT Date of Exam: 01/26/20 Exam# [id number] Ordering Dr: Beth Steele SHOWER DOORS AND PANELS FABRICATOR-C MAMMOGRAPHY - BILATERAL SCREENING REASON FOR EXAM: [...] delay biopsy of a clinically suspicious abnormality. [id number] Electronically Signed: Juan Francisco Baez, at 17:39 EST Tel , Service support , CC: NETO Steele; Zainab Richey DO Sort Supervisor: Signed Zainab Richey Work Phone: Start: 01-18-2020 End: 01-18-2020 Hospice Care Consultant Office Visit Report Comments: See Note; NOTES: [facility] 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 DatName GA/WeeksOutcome Route Bth Zhanna Yusuf LgAnesthesDel LocaProviderFOB e ht en th ia tn HPI ANNUAL EXAM: Details: LYNDA CARDENAS is a 39 year old who presents [...] alert, oriented to person, oriented to place [facility] Head: normal to inspection Neck Neck: normal [...] 1 year, prn with problems Beth Steele FEED GRINDER Orders Orders: Coding Level of Care Code Off vis,est,prev 18-39yrs Diagnoses Encounter for gynecological examination with abnormal finding Z01.411 Gynecological examination findings: abnormal findings PRESENT Lymphadenopathy, axillary R59.0 01/18/20 1346 <Electronically signed by Beth SANC> Date Beth Steele SHOWER DOORS AND PANELS FABRICATOR-C Cosigner Signature: Date (if applicable) CC: Zainab Richey Start: 11-28-2018 End: 12-03-2018 Breast Limited Unilateral Comments: See Note; NOTES: [facility] [address] [place] [address] Breast Limited Unilateral MR#: [id number] Acct: [id number] Name: LYNDA CARDENAS Rep #: [id number] : 1980 F 38 From: Radu Cramer MD PCP: Zainab Richey DO Status: REG CLI Study: Breast Limited Unilateral Date of Exam: 11/28/18 Exam# [id number] Ordering Dr: Zainab Richey DO STUDY: ULTRASOUND [...] Radu Cramer MD at 9:25 EST Tel [phone], Service support , CC: Zainab Richey DO Sort Supervisor: Signed Zainab Richey Work Phone: Start: 11-24-2018 End: 11-28-2018 Breast Limited Unilateral Comments: See Note; NOTES: [facility] [address] [place] [address] Breast Limited Unilateral MR#: [id number] Acct: [id number] Name: LYNDA CARDENAS Rep #: [id number] : 1980 F 38 From: You Brown MD PCP: Zainab Richey DO Status: REG CLI Study: Breast Limited Unilateral Date of Exam: 11/24/18 Exam# [id number] Ordering Dr: Zainab Richey DO STUDY: ULTRASOUND [...] Service support , CC: Zainab Richey DO Sort Supervisor: Signed Zainab Richey Work Phone: Start: 11-24-2018 End: 11-28-2018 DIAG MAMM W/CAD, BILAT Comments: See Note; NOTES: [facility] [address] [place] [address] DIAG MAMM W/CAD, BILAT MR#: [id number] Acct: [id number] Name: LYNDA CARDENAS Rep #: [id number] : 1980 F 38 From: You Brown MD PCP: Zainab Richey DO Status: REG CLI Study: DIAG MAMM W/CAD, BILAT Date of Exam: 11/24/18 Exam# [id number] Ordering Dr: Zainab Richey DO MAMMOGRAPHY - [...] a clinically suspicious abnormality. Electronically Signed: You Brown, at 16:28 EST Tel , Service support , CC: Zainab Richey DO Sort Supervisor: Signed Zainab Richey Work Phone: Start: 03-11-2018 End: 03-11-2018 Hospice Care Consultant Office Visit Report Comments: See Note; NOTES: [facility] [address] [place] [address]. 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 DatName GA/WeeksOutcome Route [facility] LocaProviderFOB e ht en th ia tn Unknown Jesus Manuel- Unknown Luke-03/02 HPI Annual (FOREST ENGINEER): Details: LYNDA CARDENAS is a 37 year old who presents [...] no acute distress, well developed, well groomed [facility] Head: normal to inspection, normocephalic Ears: hearing [...] Elissa Pineda MD> Date Elissa Pineda MD Cosign Signature: Date (if applicable) CC: Zainab Richey Start: 04-19-2017 End: 04-22-2017 Echocardiogram Complete Comments: See Note; NOTES: [facility] Cardiovascular Services [address] [place] [address] Echo Complete 04/19/17 0904 MR#: [id number] Acct: [id number] Name: LYNDA CARDENAS Rep #: [id number] : 1980 36 From: Simone Simon MD Attending Dr: Isaias Baez Status: REG CLI Ordering Dr: Isaias Baez Date: 04/19/17 Location: [facility] Sex: F C Admitted: Reason For Study: [...] Doppler Measurements & Calculations MV E max jenifer: 98.1 cm/sec Lat Peak E' Jenifer: 15.7 cm/sec Med Peak E' Jenifer: 13.3 cm/sec MV A max jenifer: 58.2 cm/sec E/E' lat: 6.3 E/E' med: 7.4 MV E/A: 1.7 Ao V2 max: 134.8 cm/sec LV V1 max: 101.2 cm/sec PA V2 max: 89.9 cm/sec Ao max P.3 mmHg LV V1 max P.1 mmHg TR max jenifer: 209.8 cm/sec TR max P.7 mmHg Interpretation Summary The estimated ejection fraction is 65 %. Normal diastology for age. Trivial mitral valve insufficiency. Trivial tricuspid valve insufficiency. Right ventricular systolic pressure estimated to be 23 mmHg. There is no comparison study available. Ordering Physician: Isaias Baez Referring Physician: Zainab Richey Performed By: Kailey Munson RDCS, RVT 04/19/17 1138 Date Simone Simon MD CC: Isaias Baez; Zainab Richey DO Date Dictated: 04/19/17 0904 Date Transcribed: 04/19/17 1138 Sort Supervisor: Signed Zainab Richey Work Phone: Start: 04-19-2017 End: 04-20-2017 Chest PA and Lateral Comments: See Note; NOTES: [facility] Imaging Services [address] [place] [address] Verdana 4d Chest PA and Lateral MR#: [id number] Acct: [id number] Name: LYNDA CARDENAS Rep #: [id number] : 1980 F 36 From: Frandy Mercedes MD PCP: Zainab Richey DO Status: REG CLI Study: Chest PA and Lateral Date of Exam: 04/19/17 Exam# [id number] Ordering Dr: Isaias Baez STUDY: X-RAY CHEST REASON FOR EXAM: Female, 36 years old. Shortness of breath. TECHNIQUE: Frontal and lateral views of the chest. COMPARISON: 04/12/2016. FINDINGS: The lungs are clear and expanded. There is no demonstrated pleural abnormality. Normal size heart. Normal mediastinum and manijnder. Normal visualized pulmonary arteries. Normal visualized aortic [...] , CC: Isaias Baez; Zainab Richey DO Sort Supervisor: Signed Zainab Richey Work Phone: Start: 04-17-2016 End: 04-17-2016 Emergency Department Summary Comments: See Note; NOTES: [facility] Medical Records Department [address] [place] [address] Emergency Department Summary MR#: [id number] Acct: [id number] Name: LYNDA CARDENAS Rep #: [id number] : 1980 35 From: Luis Alfredo Garland [...] C: Niesha Richey DO T: NTS JOB: [id number] 04/17/16 2336 <Electronically signed by Luis Alfredo Garland MD> Date Luis Alfredo Garland MD Cosigner Signature (If Indicated): Date CC: Niesha Albercht MD; Zainab Richey DO Date Dictated: 04/11/161714 Date Transcribed: 04/11/161714 Sort Supervisor: Signed Zainab Richey Start: 04-12-2016 End: 04-12-2016 Acute Abdomen Inc Chest Comments: See Note; NOTES: [facility] Imaging Services [address] [place] [address] Verdana 4d Acute Abdomen Inc Chest MR#: [id number] Acct: [id number] Name: LYNDA CARDENAS Rep #: [id number] : 1980 F 35 From: Radu Cramer MD PCP: Zainab Richey DO Status: REG ER Study: Acute Abdomen Inc Chest Date of Exam: 04/12/16 Exam# [id number] Ordering Dr: Luis Alfredo Garland MD STUDY: [...] Radu Cramer MD at 9:18 EDT Tel [phone], Service support [phone], RAD/Acute Abdomen Inc Chest IMPRESSION: Moderate amount of fecal material is seen in the colon. Electronically Signed: Radu Cramer MD at 9:18 EDT Tel [phone], Service support [phone], CC: Zainab Richey DO; Luis Alfredo Garland MD Sort Supervisor: Signed Zainab Richey Start: 04-11-2016 End: 04-11-2016 Discharge Instruction Comments: See Note; NOTES: [facility] Medical Records Department [address] [place] [address] Discharge Instruction 04/10/16 2347 MR#: [id number] Acct: [id number] Name: LYNDA CARDENAS Rep #: [id number] : 1980 35 From: Anthony Vora MD PCP: Zainab Richey DO Status: [facility] ER ED Disposition - Plan for [...] problems, contact your doctor. Call [facility] ([phone]) or report to the closest Emergency Room. Call 911 if necessary. 04/11/16 0204 <Electronically signed by Anthony Vora MD> Date Anthony Vora MD Cosigner Signature (If Indicated): Date CC: Zainab Whitmore Start: 04-11-2016 End: 04-11-2016 Emergency Department Summary Comments: See Note; NOTES: [facility] Medical Records Department [address] [place] [address] Emergency Department Summary MR#: [id number] Acct: [id number] Name: LYNDA CARDENAS Rep #: [id number] : 1980 35 From: Anthony Vora MD PCP: Zainab Richey DO Status: [facility] ER DATE OF SERVICE: 04/10/2016 METHOD OF [...] condition. IMPRESSION: Clostridium difficile colitis. MD Loli Hurtado: Niesha Richey DO T: [facility] JOB: [id number] 04/11/16 0204 <Electronically signed by Anthony Vora MD> Date Anthony Vora MD Cosigner Signature (If Indicated): Date CC: Niesha Albrecht MD; Zainab Richey DO Date Dictated: 04/11/1625 Date Transcribed: 04/11/1625 Sort Supervisor: Signed Zainab Richey Breast Reduction - Both Hazel y Messenger Comment on above: 2001 Breast Reduction - Both Tayl or Bruna Comment on above: 2001 Breast Reduction - Both Jasm in Gravius Comment on above: 2001 Breast Reduction - Both [place] sea Manchak Comment on above: 2001 Breast Reduction - Both Carson y Messenger Comment on above: 2001 Cystoscopy Gin Messenger Comment on above: Summer 2018 Cystoscopy Nadja Rowell Comment on above: Summer 2018 Cystoscopy Martha JARAMILLO Comment on above: Summer 2018 Reduction mammoplast y, bilateral Gin Messenger Comment on above: 2001 Reduction mammoplast y, bilateral Nadja Rowell Comment on above: 2001 Reduction mammoplast y, bilateral Martha Santos LPN Comment on above: 2001 Removal of displasti c nevus 1999 Gin Messenger Removal of displasti c nevus 1999 Sharmin Bruna Removal of displasti c nevus 2000 Ruthy Gravius Removal of displasti c nevus 2000 Tigist Man[place]ak Removal of displasti c nevus 1999 Gin Messenger Removal of displasti c nevus 1999 Nadja Rowell Removal of displasti c nevus 2000 Martha Santos LPN Tonsillectomy Gin frost Comment on above: 1998 Tonsillectomy Sharmin frost Comment on above: 1998 Tonsillectomy Ruthy Gravius Comment on above: 1998 Tonsillectomy Tigist Lexus k Comment on above: 1998 Tonsillectomy Gin frost Comment on above: 1998 Tonsillectomy Nadja Rowell Comment on above: 1998 Tonsillectomy Martha Santos LPN Comment on above: 1998 Plan of Treatment Date Care Activity Detail Author Start: 08-02-2024 Covid-19 Vaccine () Covid-19 Vaccine () [facility] Start: 08-02-2024 Influenza vaccination Influenza Vaccine (#1) [facility] Start: 12-02-2023 Depression Assessment [facility] [...] Start: 12-16-2020 Provider Instructions for Treatment Reviewed Unit Reactor Operator Letter [facility]; [facility] Work Phone: Start: 12-16-2020 Protein electrophoretic fractj&quantj serum SPEP (66758) [facility]; [facility] Work Phone: Start: 12-16-2020 Protein total xcpt refractometry urine UPEP (22190) [facility]; [facility] Work Phone: Start: 12-16-2020 Antihuman globulin direct each antiserum BRAULIO TEST, DIRECT (20554) [facility]; [facility] Work Phone: Start: 12-16-2020 Cobalamin (Vitamin B12) [Mass/Vol] VITAMIN B-12 (CYANOCOBALAMIN) (19732) [facility]; [facility] Work Phone: Start: 12-16-2020 Blood count reticulocyte automated RETICULOCYTE COUNT MANU (63750) [facility]; [facility] Work Phone: Start: 12-16-2020 Lactate dehydrogenase ldh LDH (LD) (LACTATE DEHYDROGENASE) (20064) [facility]; [facility] Work Phone: Start: 12-16-2020 Assay of iron IRON (89513) [facility] Work Phone: Start: 12-16-2020 Iron [Mass/Vol] IRON (72150) [facility]; [facility] Work Phone: Start: 12-16-2020 Iron binding capacity IRON BINDING CAPACITY (TIBC) (61441) [facility]; [facility] Work Phone: Start: 12-16-2020 Ferritin [Mass/Vol] FERRITIN (87375) [facility]; [facility] Work Phone: Start: 12-16-2020 Blood count complete auto&auto difrntl wbc CBC, PLATELETS & AUT DIFF (84007) [facility]; [facility] Work Phone: Start: 2020 Mammography Mammogram Screening [facility] Start: 2020 Screening for malignant neoplasm of breast Mammogram Screening [facility] Start: 10-02-2019 TSH Qn TSH (THYROID STIMULATING HORMONE) (38659) [facility] Work Phone: Start: 10-02-2019 Gonadotropin follicle stimulating hormone FSH AND LH (24361) [facility] Work Phone: Start: 05-11-2019 [...] stick/tablet rgnt non-auto w/o micrscp Urinalysis, Office (31018) [facility] Work Phone: Start: 10-14-2007 Antibody hector-davis eb virus early antigen ea EB ANTIBODY EARLY ANTIGN (15450) [facility] Work Phone: Start: 10-14-2007 Gonadotropin chorionic qualitative TEST - SERUM QUANTITATIVE (HCG) (22516) [facility] Work Phone: Start: 10-14-2007 Heterophile antibodies screen [facility] Work Phone: Start: 10-14-2007 Assay of thyroid stimulating hormone tsh TSH (73022) [facility]; [facility] Work Phone: Start: 10-14-2007 Thyrotropin Qn TSH (85247) [facility] Work Phone: Start: 10-14-2007 Blood count complete auto&auto difrntl wbc CBC, Platelets & Auto Diff (97677) [facility] Work Phone: Start: 10-14-2007 Comprehensive metabolic panel Metabolic Panel, Comprehensive (62655) [facility] Work Phone: Start: 10-14-2007 Hepatic function panel HEPATIC FUNCTION PANEL (44694) [facility] Work Phone: Start: 10-14-2007 Provider Instructions for Treatment [facility] Work Phone: Start: 1999 Hepatitis B Vaccine (1 of 3 - 19+ 3-dose series) Hepatitis B Vaccine (1 of 3 - 19+ 3-dose series) [facility] Start: 1999 Urine microalbumin profile DTaP,Tdap,Td Vaccine (1 - Tdap) [facility] Start: 1998 Annual PCP Team Chronic Disease Visit Annual PCP Team Chronic Disease Visit [facility] Start: 1998 Anxiety Screening Anxiety Screening [facility] Start: 1998 Depression Screening Depression Screening [facility] Start: 1998 [...] Date Immunization Notes Care Provider Kt hand 09-16-2024 influenza, seasonal, injectable Immunization [place] Work Phone: [facility] 10-04-2023 influenza, injectabl e, quadrivalent, contains preservative Immunization [place] Work Phone: [facility] Work Phone: 10-04-2023 influenza virus vaccine, unspecified formulation Minal Frazier APRN.FEED GRINDER Work Phone: [facility] 09-06-2021 influenza, injectabl e, quadrivalent, contains preservative Immunization [place] Work Phone: [facility] Work Phone: 09-23-2020 influenza, injectabl e, quadrivalent, contains preservative Immunization [place] Work Phone: [facility] Work Phone: 12-25-2018 influenza, injectabl e, quadrivalent, contains preservative Immunization [place] Work Phone: [facility] Work Phone: 09-24-2016 influenza, injectabl e, quadrivalent, preservative free Immunization [place] Work Phone: [facility] Work Phone: 09-23-2015 influenza, injectabl e, quadrivalent, contains preservative Immunization [place] Work Phone: [facility] Work Phone: 09-23-2014 influenza, live, intranasal, quadrivalent Immunization [place] Work Phone: [facility] Work Phone: 12-16-2013 influenza virus vaccine, unspecified formulation Immunization [place] Work Phone: [facility] 09-03-2012 influenza virus vaccine, live, attenuated, for intranasal use Immunization [place] Work Phone: [facility] Work Phone: 10-13-2011 influenza virus vaccine, live, attenuated, for intranasal use Immunization [place] Work Phone: [facility] 09-19-2010 influenza virus vaccine, live, attenuated, for intranasal use Immunization [place] Work Phone: [facility] 09-16-2009 influenza virus vaccine, live, attenuated, for intranasal use Immunization [place] Work Phone: [facility] Work Phone: 09-27-2008 influenza virus vaccine, live, attenuated, for intranasal use Immunization [place] Work Phone: [facility] 10-01-2007 influenza virus vaccine, unspecified formulation Immunization [place] Work Phone: [facility] 10-14-2006 influenza virus vaccine, unspecified formulation Immunization [place] Work Phone: [facility] Payers Date Payer Category Payer Unknown 2010 Unknown [id number] 2006 Unknown [id number] 1980 Unknown [id number] Unknown [id number] Social History Date Type Detail Facility Alcohol Use: Never smoker [facility] Work Phone: Living Situation: Lives with spouse. [facility] Work Phone: Start: 06-18-2019 End: 10-04-2023 No Drug Use [facility] Work Phone: Number of Child (age 0-17) Dependents: 2. [facility] Work Phone: Alcohol Use: Alcohol Use: [facility] Work Phone: Living Situation: Living Situation: [facility] Work Phone: Number of Child (age 0-17) Dependents: Number of Child (age 0-17) Dependents: [facility]; [facility] Work Phone: Start: 04-14-2012 Tobacco smoking status NHIS Never smoked tobacco [facility] Work Phone: Start: 04-14-2012 Tobacco use and exposure Smokeless tobacco non-user [facility] Work Phone: Start: 06-18-2019 End: 09-03-2024 Alcohol intake Current drinker of alcohol (finding) [facility] Start: 06-18-2019 End: 10-04-2023 Tobacco use panel [facility] National Score (1-100), lower number is lower risk 48 [facility] Start: 08-03-2016 Alcohol Comment [facility] Start: 1980 Sex Assigned At Female C [facility] Start: 09-04-2021 Gender identity Identifies as female gender (finding) [facility] Medical Equipment Procedure Code Equipment Code Equipment Origin al Text Equipment Identifier Dates Stent Inlay Opti ma 7fr Taper [place] Green Polymer Phreecoat 24cm [facility] - [id number] Start: 06-18-2019 Clinical Notes 08-29-2006 to 09-03-2024 Patient InstructionsMinal Frazier APRN.FEED GRINDER - 09/03/2024 9:47 AM EDTTelephone Encounter - Desi Benjamin - 01/29/2024 12:02 PM EST Note Date & Type Note Facility 09-03-2024 Instructions Minal Frazier APRN.FEED GRINDER - 09/03/2024 10:00 AM EDT Please seek further in person evaluation for persistent or worsening symptoms. VAGINAL YEAST INFECTION INTRODUCTION Vaginal yeast infections are a common problem in women. Vaginal yeast infections are also called yeast vaginitis or vaginal candidiasis. The most common symptoms of a yeast infection are itching and irritation of the vulva and around the opening of the vagina. Yeast infections occur mainly in women who are menstruating (having monthly periods). They are less common in postmenopausal women who do not take estrogen and in girls who have not yet started menstruating. VAGINAL YEAST INFECTION SYMPTOMS The most common symptoms of a yeast infection include: Itching or irritation of the vulva and around the vaginal opening. Pain with urination, vulvar soreness or irritation, Pain with intercourse Reddened and swollen vulvar and vaginal tissues. Some women have no abnormal vaginal discharge. Others have white clumpy (curd-like) or watery vaginal discharge. Symptoms of a yeast infection are similar to a number of other conditions, including bacterial vaginosis (a bacterial infection of the vagina), trichomoniasis (a sexually transmitted infection), and dermatitis (irritated skin). It is often not possible to know if itching is caused by yeast or other causes. VAGINAL YEAST INFECTION CAUSE The fungus that causes yeast infections (named Stephenie) normally lives in the gastrointestinal tract and sometimes the vagina. Normally, Stephenie causes no symptoms. However, when there are changes in the normal florentin of the gastrointestinal tract and vagina (caused by medicines, injury, or stress to the immune system), Stephenie can overgrow and cause the symptoms described above. VAGINAL YEAST INFECTION RISK FACTORS In most women, there is no underlying health problem that leads to a yeast infection. There are several risk factors that may increase the chances of developing an infection, including: Antibiotics -- Most antibiotics kill a wide variety of bacteria, including those that normally live in the vagina. These bacteria protect the vagina from the overgrowth of yeast. Some women are prone to yeast infections while taking antibiotics. Hormonal contraceptives (eg, control pills, patch, and vaginal ring) -- The risk of yeast infections may be higher in women who use control methods containing estrogen. Contraceptive devices -- Vaginal sponges, diaphragms, and intrauterine devices (IUDs) may increase the risk of yeast infections. Spermicides do not usually cause yeast infections, although they can cause you to have vaginal or vulvar irritation. Weakened immune system -- Yeast infections are more common in people who have a weakened immune system due to HIV or use of certain medications (steroids, chemotherapy, post-organ transplant medications). -- Vaginal discharge becomes more noticeable during , although yeast infection is not always the cause. Diabetes -- Women with diabetes are at higher risk for yeast infections, especially if blood sugar levels are often higher than normal. Sexual activity -- Vaginal yeast infections are not a sexually transmitted infection. They can occur in women who have never been sexually active, but are more common in women who are sexually active. VAGINAL YEAST INFECTION DIAGNOSIS Yeast infections can be diagnosed with an exam. During the exam, your doctor or nurse will examine your vulva and vagina and swab the vagina to get a sample of discharge. Do not begin treatment at home before being examined. Self-diagnosis -- Women with vulvar itching or vaginal discharge often assume that their symptoms are caused by a yeast infection and then use a non-prescription treatment. However, in one study, only 11 percent of women accurately diagnosed their infection; women with a previous yeast infection were only slightly more accurate (35 percent correct). Diagnosing and treating yourself: Wastes money (on non-prescription treatment) Wastes time; you will not feel better until you use the right treatment Can make you more itchy and irritated VAGINAL YEAST INFECTION TREATMENT Treatment of a vaginal yeast infection may include a pill that you take by mouth or a vaginal treatment. Vaginal treatment -- Treatment for a vaginal yeast infection often includes a vaginal cream or tablet. You apply the cream or tablet inside the vagina at bedtime with an applicator. There are prescription and non-prescription treatments, so ask your doctor or nurse which to use. One, three, and seven-day treatments are equally effective. Oral treatment -- A prescription pill called fluconazole (Diflucan ) is another option for treating yeast infections. Most women only need one dose, although women with more complicated infections (such as those with underlying medical problems, recurrent yeast infections, or severe signs and symptoms) may require a second dose 72 hours (3 days) after the first dose. Side effects of fluconazole are mild and infrequent, but may include stomach upset, headache, and rash. Fluconazole interacts with a number of medications; ask your doctor, nurse, or pharmacist if you have concerns. Fluconazole is not usually recommended during the first trimester of due to the potential risk of harm to the fetus. When will I feel better? -- Most yeast infections go away within a few days after starting treatment. However, you may continue to feel itchy and irritated, even after the infection is gone. If you do not get better within a few days after finishing treatment, call your doctor or nurse for advice. RECURRENT VAGINAL YEAST INFECTIONS Between 5 and 8 percent of women have recurrent yeast infections, defined as more than four infections per year. There is no evidence that eating yogurt or other products containing live Lactobacillus acidophilus, or applying these products to the vagina is of any benefit in women with recurrent vaginal yeast infections. Diagnosis -- As with initial yeast infections, it is important to correctly diagnose recurrent yeast infections. A woman who has frequent signs and symptoms of vulvar or vaginal irritation or itching should be seen by a healthcare provider to ensure that her symptoms are caused by yeast rather than other common problems (eg, other vaginal infections, allergic reaction or sensitivity, eczema). As with initial infections, self-diagnosis is not accurate enough to recommend treatment. Treatment -- Women with recurrent infections are usually given a longer course of treatment for infections, between 7 and 14 days for a topical (cream or suppository) medication or fluconazole 150 mg by mouth with a second and third dose 3 and 6 days later. Preventive treatment may be recommended after the infection has resolved; this may include fluconazole (150 mg orally once per week) or clotrimazole (500 mg vaginal suppositories administered once per week). Treatment of a sexual partner -- Vaginal yeast infections are not a sexually transmitted infection, although the infection may rarely be passed from one partner to another. Most experts do not recommend treatment of a sexual partner. SUMMARY Vaginal yeast infections are a common problem in women. Itching is the most common symptom of a vaginal yeast infection. Women may also note pain with urination, soreness or irritation, pain with intercourse, or reddened and swollen vulvar and vaginal tissues. There is often little or no vaginal discharge; if present, discharge is typically white and clumpy (curd-like) or thin and watery. Symptoms of a yeast infection are similar to a number of other conditions. A physical examination is needed to determine the cause of symptoms. There are several risk factors that may increase the chances of developing a yeast infection, including use of antibiotics, control, diabetes, , and a weakened immune system (due to chemotherapy, HIV, or certain medications). To diagnose a vaginal yeast infection, a healthcare provider will do an examination. It is important to be seen when symptoms are bothersome and before any treatment is used. Do not begin treatment for a yeast infection before being examined. Treatment of vaginal yeast infection may include a vaginal cream or tablet or a pill taken by mouth. documented in this encounter [facility] 09-03-2024 Note HNO ID: [id number] Author: MINAL FRAZIER APRN.CAROL Service: ? Author Type: Nurse Practitioner Type: Progress Notes Filed: 09/03/2024 10:01 Note Text: Telemedicine Visit - Distance Health Virtual Visit Note Patient seen on [employer] Video Visit platform. Location of patient: [place] I have communicated my name and active licensure. The patient's identity and physical location were verified at the time of this visit. Either the patient or their legal senior outside sales representative has been informed of the risks and benefits of -- and alternatives to -- treatment through a remote evaluation and consents to proceed with the evaluation remotely. History of Present Illness Lynda Cardenas is a 43 year old female who presents for complaint of vaginal irritation. Symptoms have been present for 2 day(s) with symptoms that are constant. Vaginitis ROS: Symptoms include: Positive for: discharge described as white, local irritation, and vulvar itching and Negative for: No abdominal pain back pain or urinary symptoms reported Predisposing factors: None that she can identify Hx of previous vaginitis: maybe once a year or less /Lactating: : No: Lactating: No LMP: about a week ago PAST MEDICAL HISTORY Diagnosis Date Allergic rhinitis, cause unspecified Allergic rhinitis Kidney stones Salmonella 2016 Von Willebrand's disease (HCC) PAST SURGICAL HISTORY Procedure Laterality Date IUD INSERTION ([employer] DEPT)_*FL 05/29/2007 Diana, leora 2015 PAST SURGICAL HISTORY OF REMOVAL OF DYSPLASTIC VULVAR LESION REDUCTION OF LARGE BREAST Breast reduction TONSILLECTOMY PRIMARY/SECONDARY Tonsillectomy FAMILY HISTORY Problem Relation Age of Onset Diabetes Father Cancer Maternal Grandmother HODGKINS Diabetes Maternal Grandmother Cancer Maternal Grandfather LUNG CANCER AND BOWEL CANCER Heart Maternal Grandfather CHF Hypertension Maternal Grandfather Hypertension Paternal Grandmother Hypertension Paternal Grandfather other (Von Willebrand's Disease) Sister Breast Cancer Maternal Aunt 42 Social History Tobacco Use Smoking status: Never Smokeless tobacco: Never Substance Use Topics Alcohol use: Yes Comment: Rarely Drug use: No Current Outpatient Medications Medication Sig hydrOXYchloroQUINE (PLAQUENIL) 200 mg tablet TAKE 1 TABLET BY MOUTH 2 TIMES A DAY ALTERNATING WITH 1 TABLET DAILY oxybutynin XL (DITROPAN XL) 5 mg 24 hr tablet Take 2 tablets by mouth once daily for 7 days. gabapentin (NEURONTIN) 100 mg capsule Take 1 capsule by mouth one time only for 1 dose. 2 hrs prior to procedure tamsulosin ER (FLOMAX) 0.4 mg cap Take 1 capsule by mouth once daily. cetirizine-pseudoephedrine (ZYRTEC-D) 5-120 mg per tablet Take 1 tablet by mouth twice daily. (Patient not taking: Reported on 01/28/2024) spironolactone (ALDACTONE) 50 mg tablet Take 50 mg by mouth once daily. (Patient not taking: Reported on 01/28/2024) MULTIVIT WITH CALCIUM,IRON,MIN (ONE-A-DAY WOMENS FORMULA ORAL) Take by mouth once daily. (Patient not taking: Reported on 01/28/2024) No current facility-administered medications for this visit. ALLERGIES Allergen Reactions Codeine GI Upset Penicillins Anaphylaxis Seasonal [Other] Vicodin [Hydrocodon* GI Upset Video Exam (Examination performed via Video enabled technology) General appearance: Alert, oriented, pleasant, in NAD :Yes Ill appearing :No Lethargic appearing :No Respiratory distress :No Abdomen: non-tender by self palpation CVA Tenderness: non-tender bilaterally by self palpation ASSESSMENT/PLAN: 1. Vaginal discharge - ICD9: 623.5, ICD10: N89.8 - FLUCONAZOLE 150 MG TABLET Would seem most consistent with vaginal candidiasis based on presentation. As a result, seems reasonable to empirically treat. Discussed possible interaction between her hydroxychloroquine and fluconazole, personally would lean towards avoiding it and using topical agent. She reports logistically they have a busy weekend ahead and does not want to deal with both the symptoms and a topical agent as she will be very active, so she would like to utilize the oral agent despite increased risks. Plan of care/General advice: o Keep vaginal area clean and dry o Shower daily and avoid taking baths o Avoid scented lotions and douching o Encouraged daily probiotics or eating yogurt with live cultures o Avoid sexual activity until your symptoms have completely resolved o Avoid wearing tight or restrictive clothing; cotton underwear is recommended o If you have recurrent vaginal yeast infections, it is important you follow up with your primary care health provider and/or your INSULATION WORKER. Vaginal yeast infections can be caused by antibiotic use, uncontrolled diabetes mellitus, and other conditions. o If symptoms do not improve recommend having an in-person evaluation. Minal Frazier APRN.[facility] 09-03-2024 History of Present illness Narrative Telemedicine Visit - Distance Health Virtual Visit Note Patient seen on [employer] Video Visit platform. Location of patient: [place] I have communicated my name and active licensure. The patient's identity and physical location were verified at the time of this visit. Either the patient or their legal senior outside sales representative has been informed of the risks and benefits of -- and alternatives to -- treatment through a remote evaluation and consents to proceed with the evaluation remotely. History of Present Illness Lynda Cardenas is a 43 year old female who presents for complaint of vaginal irritation. Symptoms have been present for 2 day(s) with symptoms that are constant. Vaginitis ROS: Symptoms include: Positive for: discharge described as white, local irritation, and vulvar itching and Negative for: No abdominal pain back pain or urinary symptoms reported Predisposing factors: None that she can identify Hx of previous vaginitis: maybe once a year or less /Lactating: : No: Lactating: No LMP: about a week ago PAST MEDICAL HISTORY Diagnosis Date Allergic rhinitis, cause unspecified Allergic rhinitis Kidney stones Salmonella 2016 Von Willebrand's disease (HCC) PAST SURGICAL HISTORY Procedure Laterality Date IUD INSERTION ([employer] DEPT)_*FL 05/29/2007 Mirena, removed 2015 PAST SURGICAL HISTORY OF REMOVAL OF DYSPLASTIC VULVAR LESION REDUCTION OF LARGE BREAST Breast reduction TONSILLECTOMY PRIMARY/SECONDARY <AGE 12 Tonsillectomy FAMILY HISTORY Problem Relation Age of Onset Diabetes Father Cancer Maternal Grandmother HODGKINS Diabetes Maternal Grandmother Cancer Maternal Grandfather LUNG CANCER AND BOWEL CANCER Heart Maternal Grandfather CHF Hypertension Maternal Grandfather Hypertension Paternal Grandmother Hypertension Paternal Grandfather other (Von Willebrand's Disease) Sister Breast Cancer Maternal Aunt 42 Social History Tobacco Use Smoking status: Never Smokeless tobacco: Never Substance Use Topics Alcohol use: Yes Comment: Rarely Drug use: No Current Outpatient Medications Medication Sig hydrOXYchloroQUINE (PLAQUENIL) 200 mg tablet TAKE 1 TABLET BY MOUTH 2 TIMES A DAY ALTERNATING WITH 1 TABLET DAILY oxybutynin XL (DITROPAN XL) 5 mg 24 hr tablet Take 2 tablets by mouth once daily for 7 days. gabapentin (NEURONTIN) 100 mg capsule Take 1 capsule by mouth one time only for 1 dose. 2 hrs prior to procedure tamsulosin ER (FLOMAX) 0.4 mg cap Take 1 capsule by mouth once daily. cetirizine-pseudoephedrine (ZYRTEC-D) 5-120 mg per tablet Take 1 tablet by mouth twice daily. (Patient not taking: Reported on 01/28/2024) spironolactone (ALDACTONE) 50 mg tablet Take 50 mg by mouth once daily. (Patient not taking: Reported on 01/28/2024) MULTIVIT WITH CALCIUM,IRON,MIN (ONE-A-DAY WOMENS FORMULA ORAL) Take by mouth once daily. (Patient not taking: Reported on 01/28/2024) No current facility-administered medications for this visit. ALLERGIES Allergen Reactions Codeine GI Upset Penicillins Anaphylaxis Seasonal [Other] Vicodin [Hydrocodon* GI Upset Video Exam (Examination performed via Video enabled technology) General appearance: Alert, oriented, pleasant, in NAD :Yes Ill appearing :No Lethargic appearing :No Respiratory distress :No Abdomen: non-tender by self palpation CVA Tenderness: non-tender bilaterally by self palpation ASSESSMENT/PLAN: 1. Vaginal discharge - ICD9: 623.5, ICD10: N89.8 - FLUCONAZOLE 150 MG TABLET Would seem most consistent with vaginal candidiasis based on presentation. As a result, seems reasonable to empirically treat. Discussed possible interaction between her hydroxychloroquine and fluconazole, personally would lean towards avoiding it and using topical agent. She reports logistically they have a busy weekend ahead and does not want to deal with both the symptoms and a topical agent as she will be very active, so she would like to utilize the oral agent despite increased risks. Plan of care/General advice: o Keep vaginal area clean and dry o Shower daily and avoid taking baths o Avoid scented lotions and douching o Encouraged daily probiotics or eating yogurt with live cultures o Avoid sexual activity until your symptoms have completely resolved o Avoid wearing tight or restrictive clothing; cotton underwear is recommended o If you have recurrent vaginal yeast infections, it is important you follow up with your primary care health provider and/or your INSULATION WORKER. Vaginal yeast infections can be caused by antibiotic use, uncontrolled diabetes mellitus, and other conditions. o If symptoms do not improve recommend having an in-person evaluation. Minal Frazier APRN.FEED GRINDER documented in this encounter [facility] 01-29-2024 Miscellaneous Notes Patient given results and verbalized understanding of instructions given. Desi Benjamin Please let patient know urine culture did not reveal any bacterial growth. Please follow-up with PCP if symptoms persist therefore, she does not have UTI. documented in this encounter [facility] 01-28-2024 Note HNO ID: [id number] Author: MARIJA LAUREANO APRN.CAROL Service: ? Author Type: Nurse Practitioner Type: Progress Notes Filed: 01/28/2024 08:39 Note Text: Subjective HPI Lynda Cardenas is a 43 year old female who presents with possible UTI; complains of urinary frequency and pelvic pain for the past 2 days. Denies fever, chills, nausea or vomiting. Describes pelvic pain as dull, aching . LMP 01/26/24 Denies concern for STI Review of Systems Constitutional: Negative for chills and fever. Respiratory: Negative. Cardiovascular: Negative. Gastrointestinal: Negative for abdominal pain, nausea and vomiting. Genitourinary: Positive for frequency. Negative for dysuria and urgency. Musculoskeletal: Negative for back pain. BP 109/66 Pulse 74 Temp 36.1 ?C (97 ?F) Resp 18 Wt 60.3 kg (133 lb) LMP 01/16/2024 (Exact Date) SpO2 100% BMI 21.47 kg/m? PAST MEDICAL HISTORY Diagnosis Date Allergic rhinitis, cause unspecified Allergic rhinitis Kidney stones Salmonella 2016 Von Willebrand's disease (HCC) PAST SURGICAL HISTORY Procedure Laterality Date IUD INSERTION ([employer] DEPT)_*FL 05/29/2007 Diana, removed 2015 PAST SURGICAL HISTORY OF REMOVAL OF DYSPLASTIC VULVAR LESION REDUCTION OF LARGE BREAST Breast reduction TONSILLECTOMY PRIMARY/SECONDARY Tonsillectomy ALLERGIES Codeine, Penicillins, Seasonal [Other], and Vicodin [Hydrocodone-Acetaminophen] MEDICATIONS hydrOXYchloroQUINE (PLAQUENIL) 200 mg tablet TAKE 1 TABLET BY MOUTH 2 TIMES A DAY ALTERNATING WITH 1 TABLET DAILY oxybutynin XL (DITROPAN XL) 5 mg 24 hr tablet Take 2 tablets by mouth once daily for 7 days. gabapentin (NEURONTIN) 100 mg capsule Take 1 capsule by mouth one time only for 1 dose. 2 hrs prior to procedure tamsulosin ER (FLOMAX) 0.4 mg cap Take 1 capsule by mouth once daily. cetirizine-pseudoephedrine (ZYRTEC-D) 5-120 mg per tablet Take 1 tablet by mouth twice daily. (Patient not taking: Reported on 01/28/2024) spironolactone (ALDACTONE) 50 mg tablet Take 50 mg by mouth once daily. (Patient not taking: Reported on 01/28/2024) MULTIVIT WITH CALCIUM,IRON,MIN (ONE-A-DAY WOMENS FORMULA ORAL) Take by mouth once daily. (Patient not taking: Reported on 01/28/2024) FAMILY HISTORY Problem Relation Age of Onset Diabetes Father Cancer Maternal Grandmother HODGKINS Diabetes Maternal Grandmother Cancer Maternal Grandfather LUNG CANCER AND BOWEL CANCER Heart Maternal Grandfather CHF Hypertension Maternal Grandfather Hypertension Paternal Grandmother Hypertension Paternal Grandfather other (Von Willebrand's Disease) Sister Breast Cancer Maternal Aunt 42 Social History Tobacco Use Smoking status: Never Smokeless tobacco: Never Substance Use Topics Alcohol use: Yes Comment: Rarely Drug use: No Objective Physical Exam Vitals and nursing note reviewed. Constitutional: General: She is not in acute distress. Appearance: Normal appearance. She is not ill-appearing. Cardiovascular: Rate and Rhythm: Normal rate and regular rhythm. Heart sounds: Normal heart sounds. Pulmonary: Effort: Pulmonary effort is normal. No respiratory distress. Breath sounds: Normal breath sounds. No wheezing or rales. Abdominal: General: There is no distension. Palpations: Abdomen is soft. There is no mass. Tenderness: There is abdominal tenderness in the suprapubic area. There is no guarding. Skin: General: Skin is warm and dry. Neurological: Mental Status: She is alert. ASSESSMENT/PLAN: 1. Urination frequency - ICD9: 788.41, ICD10: R35.0 acute - UA normal in office today. - Send urine for culture - Patient education for prevention given - UA DIP, URINE (POC) - URINE CULTURE - SG >1.030- encouraged patient to increase water intake. - Follow-up with your PCP in 3-5 days if symptoms have not improved or sooner if symptoms worsen - Discussed red flags and need for immediate medical evaluation if any occur. - Discussed supportive care treatment with fluids, rest and analgesia. - Discussed expected course of illness Marija Laureano APRN.FEED GRINDER [facility] 08-29-2006 History of Past i llness Narrative Problem Noted Date Diagnosed Date Resolved Date Other and unspecified coagulation defects 08/29/2006 04/14/2012 Supervision of other normal 07/23/2006 04/14/2012 documented as of this encounter (statuses as of 10/05/2023) [facility] History of Past illness Narrative* Problem Noted Date Diagnosed Date Resolved Date Other and unspecified coagulation defects 08/29/2006 04/14/2012 Supervision of other normal 07/23/2006 04/14/2012 documented as of this encounter (statuses as of 01/29/2024) [facility] Pre-operative examination- Primary Preoperative examination, unspecified Calculus of kidney Von Willebrand's disease (HCC) Von Willebrand's disease Mild intermittent asthma without complication Unspecified asthma PONV (postoperative nausea and vomiting) Nausea with vomiting Vaginal discharge- Primary Leukorrhea, not specified as infective [facility] Name Dates Details How to Access [facility] Online using Patient Portal and [employer] Apps Indication:Non-smoker Start:16-Dec-2020 Instruction Type:Patient Education Patient [...] version Indication:Cystitis, acute Start:14-Oct-2007 Instruction Type:Patient Education [facility] Work Phone: Instructions* Name Dates Details How to Access Health Informa tion Online using Patient Portal and [employer] Apps Indication:Non-smoker Start:16-Dec-2020 Instruction Type:Patient Education Patient [...] version Indication:Cystitis, acute Start:14-Oct-2007 Instruction Type:Patient Education [facility]; [facility] Work Phone: Instructions* Name Dates Details How to Access Health Informa tion Online using Patient Portal and [employer] Apps Indication:Non-smoker Start:16-Dec-2020 Instruction Type:Patient Education Patient [...] version Indication:Cystitis, acute Start:14-Oct-2007 Instruction Type:Patient Education [facility]; [facility] Work Phone: Family History No Family History Records FoundUnknown Family Member Name Dates Details Diabetes Mellitus Type II Comments:Father. Status:Active Marvin Carcamo Comments:Sister. Status:Active Unknown Family Member Name Dates Details Diabetes Mellitus Type II Comments:Father. Status:Active Marvin Carcamo Comments:Sister. Status:Active Unknown Family Member Name Dates Details Diabetes Mellitus Type II Comments:Father. Status:Active Marvin Carcamo Comments:Sister. Status:Active Unknown Family Member Name Dates Details Diabetes Mellitus Type II Comments:Father. Status:Active Marvin Cacramo Comments:Sister. Status:Active Unknown Family Member Name Dates [...] II Comments:Father. Status:Active Marvin Carcamo Comments:Sister. Status:Active Instructions Name Dates Details Non-smoker [...] Informa tion Online using Patient Portal and [employer] Apps Indication:Non-smoker Start:16-Dec-2020 Instruction Type:Patient Education Patient [...] tion Online using Patient Portal and [employer] Apps Indication:Non-smoker Start:16-Dec-2020 Instruction Type:Patient Education Patient [...] tion Online using Patient Portal and [employer] Apps Indication:Non-smoker Start:16-Dec-2020 Instruction Type:Patient Education Patient [...] ized section and content) DATE CREATED AUTHOR 11/13/2018 [facility] DATE CREATED AUTHOR AUTHOR'S ORGANIZ ATION 09/18/2024 [facility] Source Comments (unrecognize d section and content) [...] Care Teams (unrecognized sec tion and content) Melt Room Operator Relationship Specialty Start Date End Date Zainab Richey DO [address] [place], [place] [id number] PCP - General 01/17/05 Melt Room Operator Relationship Specialty Start Date End Date Zainab Richey DO [address] [place], [place] [id number] PCP - General 01/17/05 Melt Room Operator Relationship Specialty Start Date End Date Zainab Richey DO [address] [place], [place] [phone] PCP - General 01/17/05 Melt Room Operator Relationship Specialty Start Date End Date Zainab Richey DO [address] [place], [place] [phone] PCP - General 01/17/05 Reason for Visit (unrecogniz ed section and content) Reason Comments Results Reason Comments Vaginal Problem FOR RECORDS PERTAINING TO PATIENTS WHO ARE [...] BE BASED ON THE PRIMARY CLINICAL RECORDS. [facility] [employer] [facility]. provides no warranty or guarantee of the accuracy or completeness of information in this document.
== END | disposition home or self-care (01) ==
LOC: OPBI 13:34
PROVIDERS: PCP Internal Medicine; Referring Provider Nurse Practitioner Women's Health; Visit Provider Nurse Practitioner Women's Health
DX: Z12.31 Encounter for screening mammogram for malignant neoplasm of breast (principal)
CPT/HCPCS: 77063; 77067

== ENCOUNTER → 2025-04-20 | Outpatient (CLI) | payer OTHER, SELFPAY ==
[2025-04-20 15:28] LABS: Absolute Neutrophil Count 4.6 X10^3/uL (2.0-7.7); Basophil# 0.08 X10^3/uL; Basophil% 1.1 % (0-1); Eosinophil# 0.22 X10^3/uL; Hematocrit 36.6 % (37-47); Hemoglobin 12.3 g/dL (12.0-15.0); Lymphocyte % 25.9 % (19-41); Mean Corp Hgb Conc 33.6 g/dL (32-36); Mean Corpuscular Hgb 31.2 pg (27.0-32.0); Mean Corpuscular Volume 92.9 fL (81-99); Mean Platelet Vol. 10.3 fl (6.2-12.0); Monocyte# 0.51 X10^3/uL; Monocyte% 6.9 % (0-10); NRBC Flagged by Analyzer 0 % (0-5); Neutrophil # 4.63 X10^3/uL (2.7-7.7); Platelet Count 284 K/mm3 (150-450); RBC Distribution Width CV 12.4 % (11.6-14.6); RBC Distribution Width SD 42.6 fl (35.1-43.9); Red Blood Count 3.94 M/mm3 (4.2-5.4); White Blood Count 7.4 K/mm3 (4.4-11.0)
[2025-04-20 16:06] LABS: AST(SGOT) 25 U/L (<=31); Alanine Aminotransfer ALT/SGPT 19 U/L (<=34); Albumin, Serum 4.3 g/dL (3.5-5.0); Alkaline Phosphatase 66 U/L (35-104); Bilirubin, Direct 0.11 mg/dL (0.00-0.30); Globulin 2.5 g/dL (2.2-4.2); Protein, Total 6.8 g/dL (5.9-8.4); Total Bilirubin 0.22 mg/dL (0.00-1.30)
== END | disposition home or self-care (01) ==
PROVIDERS: PCP Internal Medicine; Referring Provider Dermatology; Visit Provider Dermatology
DX: Z79.899 Other long term (current) drug therapy (principal)
CPT/HCPCS: 36415; 80076; 85025

== ENCOUNTER → 2025-10-20 | Outpatient (CLI) | payer OTHER, SELFPAY ==
[2025-10-20 14:53] LABS: Hematocrit 36.7 % (37-47); Hemoglobin 12.0 g/dL (12.0-15.0); Immature Granulocytes Count 0.030 X10^3/uL (0.0-0.0); Mean Corp Hgb Conc 32.7 g/dL (32-36); Mean Corpuscular Volume 92.0 fL (81-99); Mean Platelet Vol. 10.1 fl (6.2-12.0); NRBC Flagged by Analyzer 0 % (0-5); Platelet Count 294 K/mm3 (150-450); RBC Distribution Width CV 12.3 % (11.6-14.6); RBC Distribution Width SD 41.2 fl (35.1-43.9); Red Blood Count 3.99 M/mm3 (4.2-5.4); White Blood Count 8.6 K/mm3 (4.4-11.0)
[2025-10-20 15:44] LABS: AST(SGOT) 24 U/L (<=31); Alanine Aminotransfer ALT/SGPT 15 U/L (<=34); Albumin, Serum 4.4 g/dL (3.5-5.0); Alkaline Phosphatase 63 U/L (35-104); Bilirubin, Direct 0.11 mg/dL (0.00-0.30); Globulin 2.6 g/dL (2.2-4.2)
== END | disposition home or self-care (01) ==
LOC: LAB 14:31
PROVIDERS: PCP Internal Medicine; Referring Provider Dermatology; Visit Provider Dermatology
DX: Z79.899 Other long term (current) drug therapy (principal)
CPT/HCPCS: 36415; 80076; 85025

== ENCOUNTER → 2025-11-17 | Outpatient (CLI) | payer OTHER, SELFPAY ==
--- NOTE | 2025-11-17 14:45 | BI_ITS ---
EXAM: SCRN MAMM (CAD)W/KANDY BILAT DATE: 11/17/2025 CLINICAL HISTORY: F, Age 45 y/o , BREAST CANCER SCREENING Aunt with breast cancer. Prior bilateral breast TECHNIQUE: Procedure Code: [id number] Modality: MG Procedure: SCRN MAMM (CAD)W/KANDY BILAT COMPARISON: Prior exam(s) dated September 29, 2024.. FINDINGS: TISSUE DENSITY: The breasts are extremely dense, which lowers the sensitivity of mammography. Bilateral Breast Mammographic Findings: No significant masses, calcifications or other abnormalities are identified. Stable small bilateral axillary lymph nodes. No suspicious masses, areas of developing architectural distortion, or suspicious calcifications. There has been no significant interval change. BI/SCRN MAMM (CAD)W/KANDY BILAT IMPRESSION: Stable bilateral screening mammogram. OVERALL FINAL ASSESSMENT BI-RADS 2: BENIGN RECOMMENDATION: Routine annual follow-up in 1 Year Additional Recommendation none A letter with findings and recommendations will be mailed to the patient. Reading Location: [place]
== END | disposition home or self-care (01) ==
LOC: OPBI 14:32
PROVIDERS: PCP Internal Medicine; Referring Provider Nurse Practitioner Women's Health; Visit Provider Nurse Practitioner Women's Health
DX: Z12.31 Encounter for screening mammogram for malignant neoplasm of breast (principal)
CPT/HCPCS: 77063; 77067